=== PATIENT | male | born 1955 | race Caucasian/White ===

== ENCOUNTER 2017-05-13 08:48 | Outpatient (CLI) | payer BC ==
[~2017-05-13] VITALS: Ht 180.3 cm; Wt 74.4 kg
[~2017-05-13 08:48] MED LIST: /THIA10TA OR; ALBU17IN INH; ALLO100T OR; ALLO100T PO; Advair Diskus INH; Albuterol Inhaler INH; BREO1INH INH; CIPR25SS OR; COLC0.6T OR; FLAG500T OR; FOLI1TAB OR; INCR1INH IN; LEVO50TA5 PO; LIPI10TA PO; LISI10TA2 PO; LISI10TA4 OR; MULTIVIT; NS 1,000 ML IV ONE; VITA500C OR; Vitamin D PO
[2017-05-13] MEDS ORDERED: LIDOCAINE 2% INJ 100 MG/5 ML SDV (FOR ANES.) As Ordered ONE (09:53)
[2017-05-13] MEDS ORDERED: PROPOFOL 200 MG/20 ML VIAL As Ordered ONE (09:53)
--- NOTE | 2017-05-13 10:11 | ROOR ---
Patient Name: Geronimo Chaves Procedure Date: 05/13/2017 9:44 AM Date of : 1955 Age: 62 Room: [facility] Gender: Male Note Status: Finalized Procedure: Colonoscopy Indications: High risk colon cancer surveillance: Personal history of colonic polyps. (Incidental: Hx Microscopic colitis) Providers: Jordy GUTIERREZ MD Referring MD: JANETH DOS SANTOS MD Requesting Provider: Medicines: Monitored Anesthesia Care Complications: No immediate complications. Procedure: Pre-Anesthesia Assessment: - The heart rate, respiratory rate, oxygen saturations, blood pressure, adequacy of pulmonary ventilation, and response to care were monitored throughout the procedure. The Colonoscope was introduced through the anus and advanced to the cecum, identified by appendiceal orifice and ileocecal valve. The colonoscopy was performed without difficulty. The patient tolerated the procedure well. The quality of the bowel preparation was good. Findings: The perianal and digital rectal examinations were normal. Three sessile polyps were found in the hepatic flexure and ascending colon. The polyps were 3 to 6 mm in size. These polyps were removed with a cold snare. Resection and retrieval were complete. Biopsies for histology were taken with a cold forceps for evaluation of microscopic colitis. Internal hemorrhoids were found during retroflexion. The hemorrhoids were medium-sized. Impression: - Three 3 to 6 mm polyps at the hepatic flexure and in the ascending colon, removed with a cold snare. Resected and retrieved. - Internal hemorrhoids. - Biopsies were taken with a cold forceps for evaluation of microscopic colitis. - The examination was otherwise normal. Recommendation: - Repeat colonoscopy in 3 years for surveillance. Jordy Gutierrez MD Jordy GUTIERREZ MD 05/13/2017 10:11:11 AM This report has been signed electronically. Number of Addenda: 0 Note Initiated On: 05/13/2017 9:44 AM Estimated Blood Loss: Estimated blood loss: none.
[2017-05-13 10:27] VITALS: BP 120/66
[2017-08-09] MEDS ORDERED: TYLE500T78 PO (08:23)
== END 2017-05-13 10:30 ==
LOC: M OPP 08:48
PROVIDERS: ATTEND Internal Medicine Gastroenterology
DX: Z12.11 Encounter for screening for malignant neoplasm of colon (principal); D12.3 Benign neoplasm of transverse colon; D12.2 Benign neoplasm of ascending colon; K64.8 Other hemorrhoids; K52.832 Lymphocytic colitis; Z86.010 Personal history of colon polyps; Z87.19 Personal history of other diseases of the digestive system; Z79.899 Other long term (current) drug therapy; I10 Essential (primary) hypertension; E03.9 Hypothyroidism, unspecified; J44.9 Chronic obstructive pulmonary disease, unspecified; F17.210 Nicotine dependence, cigarettes, uncomplicated

== ENCOUNTER 2017-06-19 08:01 | Emergency (ER) | payer BC ==
[~2017-06-19] VITALS: Ht 180.3 cm; Wt 73.6 kg
[~2017-06-19 08:01] MED LIST changes: -NS 1,000 ML IV ONE
[2017-06-19] MEDS ORDERED: VITA500T PO (08:11)
[2017-06-19] MEDS ORDERED: LEVA1TAB2 PO (08:11)
[2017-06-19] MEDS ORDERED: INCR1INH IN (08:11)
[2017-06-19] MEDS ORDERED: IBUP-1022 PO (09:18)
--- NOTE | 2017-06-19 09:28 | REP ---
ULTRASOUND INGUINAL CANALS: Real-time sonographic evaluation of inguinal canals performed at rest and with Valsalva maneuver. There is no evidence of inguinal hernia bilaterally. No significant adenopathy is seen sonographically. No fluid collections are seen. IMPRESSION: No evidence of inguinal hernia bilaterally. Signed by Brennon Spivey MD 06/19/2017 04:39 P
[2017-06-19 09:36] VITALS: BP 149/81
[2017-08-09] MEDS ORDERED: TYLE500T78 PO (08:23)
== END 2017-06-19 09:38 | disposition home or self-care (01) ==
LOC: M ED 08:01
DX: K41.90 Unilateral femoral hernia, without obstruction or gangrene, not specified as recurrent (principal); I10 Essential (primary) hypertension; E03.9 Hypothyroidism, unspecified; J45.909 Unspecified asthma, uncomplicated; Z79.899 Other long term (current) drug therapy; Z79.51 Long term (current) use of inhaled steroids

== ENCOUNTER → 2017-08-13 | Outpatient (CLI) | payer BC ==
[~2017-08-13] MED LIST changes: +IBUP-1022 PO; +LEVA1TAB2 PO; +TYLE500T78 PO; +VITA500T PO
[2017-08-13 06:47] LABS: MEAN CORPUSCULAR HEMOGLOBIN 32.8 pg (27.0-33.0); MEAN CORPUSCULAR VOLUME 96.7 fl (80.0-96.0); RED CELL DISTRIBUTION WIDTH 11.9 % (11.5-14.5); WHITE BLOOD COUNT 8.9 10^3/uL (4.0-10.0)
[2017-08-13 07:11] LABS: ALBUMIN 4.1 GM/DL (3.2-5.2); ALBUMIN/GLOBULIN RATIO 1.17 (1.00-1.93); ALKALINE PHOSPHATASE 91 U/L (45-117); ALT/SGPT 23 U/L (12-78); ANION GAP 4 MEQ/L (8-16); AST/SGOT 18 U/L (15-37); BILIRUBIN,TOTAL 0.9 MG/DL (0.2-1.0); BLOOD UREA NITROGEN 8 MG/DL (7-18); CALCIUM LEVEL 9.3 MG/DL (8.8-10.2); CARBON DIOXIDE LEVEL 33 MEQ/L (21-32); CHLORIDE LEVEL 101 MEQ/L (98-107); CREATININE FOR GFR 0.79 MG/DL (0.70-1.30); GLOMERULAR FILTRATION RATE > 60.0 (>49); GLUCOSE, FASTING 99 MG/DL (80-110); POTASSIUM SERUM 4.6 MEQ/L (3.5-5.1); SODIUM LEVEL 138 MEQ/L (136-145); TOTAL PROTEIN 7.6 GM/DL (6.4-8.2)
--- NOTE | 2017-08-14 16:06 | ECGEPIP ---
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
== END ==
LOC: M LAB 06:08
PROVIDERS: ATTEND Internal Medicine
DX: Z01.810 Encounter for preprocedural cardiovascular examination (principal); I10 Essential (primary) hypertension; J44.9 Chronic obstructive pulmonary disease, unspecified

== ENCOUNTER 2017-08-16 11:27 | Day surgery (SDC) | payer BC ==
[~2017-08-16] VITALS: Ht 177.8 cm; Wt 72.1 kg
[2017-08-16] MEDS ORDERED: LR 1,000 ML IV ONE (11:45)
[2017-08-16] MEDS ORDERED: BUPIVACAINE/EPIN 0.25% 30 ML VIAL As Ordered ONE (11:57)
[2017-08-16] MEDS ORDERED: ONDANSETRON 4MG/2ML VIAL (J2405) As Ordered ONE (13:12)
[2017-08-16] MEDS ORDERED: ROCURONIUM BROMIDE 50 MG/5 ML VIAL/SYRINGE As Ordered ONE (13:12)
[2017-08-16] MEDS ORDERED: KETOROLAC 60 MG/2 ML VIAL (J1885) As Ordered ONE (13:12)
[2017-08-16] MEDS ORDERED: MIDAZOLAM INJ 2 MG/2 ML VIAL (J2250) As Ordered ONE (13:12)
[2017-08-16] MEDS ORDERED: dexameTHASONE 4 MG/ML 1ML VIAL (J1100) As Ordered ONE (13:12)
[2017-08-16] MEDS ORDERED: PROPOFOL 200 MG/20 ML VIAL As Ordered ONE ×2 (13:12→14:08)
[2017-08-16] MEDS ORDERED: fentaNYL 250 MCG/5 ML INJECTION (J3010) As Ordered ONE (13:12)
[2017-08-16] MEDS ORDERED: NEOSTIGMINE 10 MG/10 ML VIAL (J2710) As Ordered ONE (13:12)
[2017-08-16] MEDS ORDERED: LIDOCAINE 2% INJ 100 MG/5 ML SDV (FOR ANES.) As Ordered ONE (13:12)
[2017-08-16] MEDS ORDERED: GLYCOPYRROLATE INJ 0.2 MG/ML 2 ML VIAL As Ordered ONE (13:12)
[2017-08-16] MEDS ORDERED: fentaNYL 100 MCG/2 ML INJECTION (J3010) As Ordered ONE (13:17)
[2017-08-16] MEDS ORDERED: LABETALOL HCL 100 MG/20 ML VIAL As Ordered ONE (13:38)
[2017-08-16] MEDS ORDERED: PERCOCET 5MG/325MG TAB PO PRN (14:45)
[2017-08-16] MEDS ORDERED: LR 1,000 ML IV SCH (14:45)
[2017-08-16] MEDS ORDERED: ONDANSETRON 4MG/2ML VIAL (J2405) IV PRN (14:45)
[2017-08-16] MEDS ORDERED: NORCO, ANEXSIA 5/325MG TABLET (HYDROcodone/ACETAMINOPHEN) PO PRN (14:45)
[2017-08-16] MEDS ORDERED: METOCLOPRAMIDE INJ 10MG/2ML VIAL (J2765) IV PRN (14:45)
[2017-08-16] MEDS: fentaNYL 100 MCG/2 ML INJECTION (J3010) IV PRN ×2 (14:49→14:55)
[2017-08-16 16:30] VITALS: BP 151/81
--- NOTE | 2017-08-16 18:58 | RO ---
DATE OF PROCEDURE: 08/16/2017 PREOPERATIVE DIAGNOSIS: Right inguinal hernia with incarcerated umbilical and possible bilateral inguinal. POSTOPERATIVE DIAGNOSIS: Right inguinal and incarcerated umbilical. PROCEDURE: Robotic-assisted right inguinal hernia repair with incarcerated open umbilical hernia repair. SURGEON: Brennon Devlin DO [employer] SORTER: ABDIAS Zuniga ANESTHESIA: General. ESTIMATED BLOOD LOSS: 5 mL. COMPLICATIONS: None. INDICATION FOR PROCEDURE: Patient is a 62-year-old male who presents with a large lump in the right groin and some periumbilical pain. He was found to have a large right inguinal hernia on physical exam as well as an incarcerated umbilical hernia. Recommendation was to proceed with robotic right, possible bilateral with open incarcerated hernia repair. Risks and benefit of the procedure not limited to but including bleeding, infection, hernia formation, hernia recurrence, damage to surrounding structures, need for further surgery were discussed in detail with the patient. Informed consent was obtained and procedure was planned. PROCEDURE: The patient was brought back to operating room 7. After sufficient sedation the abdomen was sterilely prepped and draped. Next, a time out was done to confirm proper patient and proper procedure. Following that, a 5 mm incision was made supraumbilically horizontally. A Veress needle was then used to gain access to the abdomen. Once abdomen was entered, a 5 mm OptiView port was used to insert the camera. 8 mm ports were then placed right and left midabdomen. An 8 mm robotic camera port was then replaced at the umbilical port site. There was no visible hernia on the left side on inspection intraperitoneally, so dissection was started on the right side. The cecum was carefully dissected free from the right peritoneal wall. After doing so the peritoneum was incised on the right side revealing the preperitoneal space. This was all dissected free posteriorly, medially and laterally to create a space for the mesh. Once this was completed, a cord lipoma was excised. The peritoneum was carefully dissected free from all of the cord structures, inferiorly and laterally. Once all this was completed, a Bard 3DMax large mesh was placed in the right groin and sutured to the pubic symphysis using #0 Vicryl suture. The peritoneum was then closed using a running V-Loc suture. Once this was completed, the abdomen was desufflated, ports were removed. Electrocautery was used to extend the incision at the umbilicus to about 3 cm. The incarcerated fat was carefully dissected free circumferentially and the whole hernia sac was excised. Once this was completed, the defect was closed with two interrupted figure-of-8 #0 Vicryl sutures. The skin was then reapproximated using #4-0 Vicryl subcuticular sutures. The abdomen was cleaned and dried. Steri-Strips, 4x4 and tape were applied thus ending procedure.
== END 2017-08-16 16:57 | disposition home or self-care (01) ==
LOC: M SDC 11:27
PROVIDERS: ATTEND Surgery
DX: K42.0 Umbilical hernia with obstruction, without gangrene (principal); K40.90 Unilateral inguinal hernia, without obstruction or gangrene, not specified as recurrent; E03.9 Hypothyroidism, unspecified; I10 Essential (primary) hypertension; J44.9 Chronic obstructive pulmonary disease, unspecified; K52.9 Noninfective gastroenteritis and colitis, unspecified; E78.5 Hyperlipidemia, unspecified; M12.9 Arthropathy, unspecified; J45.909 Unspecified asthma, uncomplicated; Z79.899 Other long term (current) drug therapy; Z72.0 Tobacco use
CPT/HCPCS: 49587; 49650; 88302; C1781; J0690; J1100; J1885; J2250; J2405; J2710; J3010

== ENCOUNTER 2018-01-20 06:31 | Day surgery (SDC) | payer BC ==
[~2018-01-20 06:31] MED LIST changes: -/THIA10TA OR; +ACETAMINOPHEN 325 MG TAB PO; -ALBU17IN INH; -ALLO100T OR; -ALLO100T PO; -Advair Diskus INH; -Albuterol Inhaler INH; -BREO1INH INH; -CIPR25SS OR; -COLC0.6T OR; -FLAG500T OR; -FOLI1TAB OR; -IBUP-1022 PO; -INCR1INH IN; -LEVA1TAB2 PO; -LEVO50TA5 PO; -LIPI10TA PO; -LISI10TA2 PO; -LISI10TA4 OR; -MULTIVIT; +SLF 3 ML SYR IV; -TYLE500T78 PO; -VITA500C OR; -VITA500T PO; -Vitamin D PO
[2018-01-20] MEDS ORDERED: PHENYLEPHRINE HCL 10 % OPHTH. SOL 5ML OD (07:00)
[2018-01-20] MEDS ORDERED: PROPARACAINE 0.5% OPHTH SOL 15ML OD (07:01)
[2018-01-20] MEDS: LIDOCAINE 3.5 % 1ML OPHTH TOPICAL GEL OU (07:10)
[2018-01-20] MEDS: TROPICAMIDE 1% OPHTH SOLN 2ML OD (07:12)
[2018-01-20] MEDS: CYCLOPENTOLATE 2% OPHTH SOLN 2ML BTL OD (07:12)
[2018-01-20] MEDS: OFLOXACIN 0.3 % (OCUFLOX) OPTH SOL 5ML OD (07:12)
[2018-01-20] MEDS: PHENYLEPHRINE 2.5% OPHTH SOL 2ML OD (07:17)
[2018-01-20] MEDS ORDERED: fentaNYL 100 MCG/2 ML INJECTION (J3010) As Ordered (08:17)
[2018-01-20] MEDS ORDERED: MIDAZOLAM INJ 2 MG/2 ML VIAL (J2250) As Ordered (08:17)
[2018-01-20] MEDS: TRIAMCINOLONE PRES FR 40 MG/ML 1ML(TRIESENCE)(OR EYE ONLY)(J3300 PER 1MG) As Ordered (08:24)
[2018-01-20] MEDS: BSS with VANC/TOB/EPI for EYE CASES IR (08:24)
[2018-01-20] MEDS: HEALON DUET (HEALON 10MG/ML 0.55ML & HEALON ENDOCOAT 30MG/ML 0.85ML) As Ordered (08:24)
[2018-01-20] MEDS: MOXIFLOXACIN IN BSS 0.25MG/0.25ML INTRACAMERAL INJ (OR EYE ONLY)(J2280) As Ordered (08:24)
[2018-01-20] MEDS: POVIDONE-IODINE 5% OPHTH PREP SOL 30ML As Ordered (08:24)
[2018-01-20] MEDS: LIDOCAINE 1% SDV 5 ML VIAL As Ordered (08:24)
[2018-01-20] MEDS ORDERED: TRIMETHOBENZAMIDE 300 MG CAP PO (09:00)
[2018-01-20] MEDS ORDERED: KETOROLAC 0.5% OPHTH SOLN OD (09:00)
[2018-01-20] MEDS: AcetaZOLAMIDE 500 MG ER CAP PO (09:00)
== END 2018-01-20 09:15 | disposition home or self-care (01) ==
LOC: M SDC 06:31
DX: H25.9 Unspecified age-related cataract (principal); I10 Essential (primary) hypertension; E78.5 Hyperlipidemia, unspecified; E03.9 Hypothyroidism, unspecified; J44.9 Chronic obstructive pulmonary disease, unspecified; F17.210 Nicotine dependence, cigarettes, uncomplicated; Z79.899 Other long term (current) drug therapy
CPT/HCPCS: 66984

== ENCOUNTER 2018-02-12 10:13 | Day surgery (SDC) | payer BC ==
[~2018-02-12 10:13] MED LIST changes: +PHENYLEPHRINE HCL 10 % OPHTH. SOL 5ML OS; -SLF 3 ML SYR IV
[2018-02-12] MEDS: TROPICAMIDE 1% OPHTH SOLN 2ML OS (12:42)
[2018-02-12] MEDS: CYCLOPENTOLATE 2% OPHTH SOLN 2ML BTL OS (12:42)
[2018-02-12] MEDS: PHENYLEPHRINE 2.5% OPHTH SOL 2ML OS (12:42)
[2018-02-12] MEDS: LIDOCAINE 3.5 % 1ML OPHTH TOPICAL GEL OU (12:42)
[2018-02-12] MEDS: OFLOXACIN 0.3 % (OCUFLOX) OPTH SOL 5ML OS (12:42)
[2018-02-12] MEDS ORDERED: MIDAZOLAM INJ 2 MG/2 ML VIAL (J2250) As Ordered (13:23)
[2018-02-12] MEDS ORDERED: fentaNYL 100 MCG/2 ML INJECTION (J3010) As Ordered (13:23)
[2018-02-12] MEDS ORDERED: POVIDONE-IODINE 5% OPHTH PREP SOL 30ML As Ordered (13:39)
[2018-02-12] MEDS: POVIDONE-IODINE 5% OPHTH PREP SOL 30ML As Ordered (13:49)
[2018-02-12] MEDS: BSS with VANC/TOB/EPI for EYE CASES IR (13:55)
[2018-02-12] MEDS: MOXIFLOXACIN IN BSS 0.25MG/0.25ML INTRACAMERAL INJ (OR EYE ONLY)(J2280) As Ordered (13:55)
[2018-02-12] MEDS: LIDOCAINE 2% W/EPIN INJ 20ML **PRES FREE As Ordered (13:55)
[2018-02-12] MEDS: TRIAMCINOLONE PRES FR 40 MG/ML 1ML(TRIESENCE)(OR EYE ONLY)(J3300 PER 1MG) As Ordered (13:55)
[2018-02-12] MEDS: LIDOCAINE 1% SDV 5 ML VIAL As Ordered (13:55)
[2018-02-12] MEDS: HEALON DUET (HEALON 10MG/ML 0.55ML & HEALON ENDOCOAT 30MG/ML 0.85ML) As Ordered (13:55)
[2018-02-12] MEDS ORDERED: AcetaZOLAMIDE 500 MG ER CAP As Ordered (14:10)
[2018-02-12] MEDS: AcetaZOLAMIDE 500 MG ER CAP PO (14:18)
[2018-02-12] MEDS ORDERED: TRIMETHOBENZAMIDE 300 MG CAP PO (14:30)
== END 2018-02-12 14:30 | disposition home or self-care (01) ==
LOC: M SDC 10:13
DX: H26.9 Unspecified cataract (principal); I10 Essential (primary) hypertension; E78.5 Hyperlipidemia, unspecified; K52.9 Noninfective gastroenteritis and colitis, unspecified; E03.9 Hypothyroidism, unspecified; J44.9 Chronic obstructive pulmonary disease, unspecified; R91.8 Other nonspecific abnormal finding of lung field; R06.83 Snoring; M10.9 Gout, unspecified; Z79.899 Other long term (current) drug therapy; Z72.0 Tobacco use
CPT/HCPCS: 66984

== ENCOUNTER 2018-05-31 08:56 | Emergency (ER) | payer BC ==
[2018-05-31 09:25] LABS: BASO # 0.1 10^3/uL (0.0-0.2); BASO % 0.9 % (0.0-1.0); EOS # 0.1 10^3/uL (0.0-0.50); EOS % 1.6 % (0.0-3.0); HEMATOCRIT 43.6 % (42.0-52.0); HEMOGLOBIN 15.2 g/dl (13.5-17.5); IMMATURE GRANULOCYTE % 0.3 % (0-3.0); LYMPH # 0.8 10^3/uL (1.5-4.5); LYMPH % 11.9 % (24.0-44.0); MEAN CORPUSCULAR HEMOGLOBIN 33.7 pg (27.0-33.0); MEAN CORPUSCULAR HGB CONC 34.9 g/dl (32.0-36.5); MEAN CORPUSCULAR VOLUME 96.7 fl (80.0-96.0); MONO # 0.7 10^3/uL (0.0-0.8); MONO % 9.7 % (0.0-5.0); NEUTROPHILS # 5.3 10^3/uL (1.8-7.7); NEUTROPHILS % 75.6 % (36.0-66.0); PLATELET COUNT, AUTOMATED 219 10^3/uL (150-450); RED BLOOD COUNT 4.51 10^6/uL (4.30-6.10); RED CELL DISTRIBUTION WIDTH 12.2 % (11.5-14.5)
[2018-05-31] MEDS: ASPIRIN 81 MG CHEW TABLET PO (09:27)
[2018-05-31] MEDS: NITROGLYCERIN 0.4 MG SUBL TABLET SL ×3 (09:29→09:51)
[2018-05-31 09:44] LABS: INR 1.01; PROTHROMBIN TIME 13.4 SECONDS (12.1-14.4)
[2018-05-31 09:49] LABS: ANION GAP 6 MEQ/L (8-16); BLOOD UREA NITROGEN 10 MG/DL (7-18); CALCIUM LEVEL 9.3 MG/DL (8.8-10.2); CARBON DIOXIDE LEVEL 31 MEQ/L (21-32); CHLORIDE LEVEL 102 MEQ/L (98-107); CK-MB VALUE MASS 1.7 NG/ML (<3.6); CPK CREATINE PHOSPHOKINASE 66 U/L (39-308); CREATININE FOR GFR 0.84 MG/DL (0.70-1.30); GLOMERULAR FILTRATION RATE > 60.0 (>49); GLUCOSE, FASTING 108 MG/DL (70-100); MB/CK RELATIVE INDEX 2.57 (< OR =4); POTASSIUM SERUM 3.9 MEQ/L (3.5-5.1); SODIUM LEVEL 139 MEQ/L (136-145); TROPONIN I < 0.02 NG/ML (< 0.10)
[2018-05-31] MEDS ORDERED: ISOVUE-370 76% 100ML VIAL (Q9967) As Ordered (10:00)
[2018-05-31] MEDS: HEPARIN DRIP 25,000 UNITS in APPROPRIATE DILUENT 1 EA IV (12:08)
[2018-05-31] MEDS: HEPARIN SOD (PORCINE) 5000 UNITS/ML VIAL IV (12:08)
[2018-05-31 12:30] LABS: CK-MB VALUE MASS 1.4 NG/ML (<3.6); CPK CREATINE PHOSPHOKINASE 62 U/L (39-308); MB/CK RELATIVE INDEX 2.25 (< OR =4); TROPONIN I < 0.02 NG/ML (< 0.10)
== END 2018-05-31 14:13 | disposition short-term general hospital (02) ==
LOC: M ED 08:56
DX: I20.0 Unstable angina (principal); R06.02 Shortness of breath; I10 Essential (primary) hypertension; J44.9 Chronic obstructive pulmonary disease, unspecified; F17.200 Nicotine dependence, unspecified, uncomplicated; Z79.899 Other long term (current) drug therapy
CPT/HCPCS: Q9967

== ENCOUNTER → 2018-10-16 | Outpatient (REF) | payer BC ==
[~2018-10-16] MED LIST changes: +/THIA10TA OR; -ACETAMINOPHEN 325 MG TAB PO; +ALBU17IN INH; +ALLO100T OR; +ALLO100T PO; +Advair Diskus INH; +Albuterol Inhaler INH; +BREO1INH INH; +CIPR25SS OR; +COLC0.6T OR; +FLAG500T OR; +FOLI1TAB OR; +IBUP-1022 PO; +INCR1INH IN; +LEVA1TAB2 PO; +LEVO50TA5 PO; +LIPI10TA PO; +LISI10TA2 PO; +LISI10TA4 OR; +MULTIVIT; -PHENYLEPHRINE HCL 10 % OPHTH. SOL 5ML OS; +TYLE500T78 PO; +VITA100067 PO; +VITA500C OR; +VITA500T PO; +Vitamin D PO
== END ==
LOC: M LAB REF 15:27
PROVIDERS: ATTEND Internal Medicine Gastroenterology
DX: K52.839 Microscopic colitis, unspecified (principal)

== ENCOUNTER → 2019-05-29 | Outpatient (CLI) | payer BC ==
--- NOTE | 2019-05-29 11:50 | REP ---
Clinical: Bilateral groin pain. Technique: Real time gomez scale ultrasound examination using curved array transducer. Findings: Directed ultrasound examination of the bilateral inguinal canals demonstrates small/moderate bilateral fat containing inguinal hernias. Right-sided defect measures up to 22 mm on Valsalva while the left-sided defect measures up to 18 mm. Impression: Bilateral fat containing inguinal hernias. Electronically Signed by Munir Maloney MD 05/29/2019 11:41 A
== END ==
LOC: M RAD 10:28
PROVIDERS: ATTEND Surgery
DX: K40.21 Bilateral inguinal hernia, without obstruction or gangrene, recurrent (principal)

== ENCOUNTER 2019-06-19 09:45 | Day surgery (SDC) | payer BC ==
[~2019-06-19] VITALS: Ht 180.3 cm; Wt 68.9 kg
[~2019-06-19 09:45] MED LIST changes: +ACET-683 PO; +BUDE3CAP PO; +LEVO75TA4 PO; +LISI10TA15 PO; -LISI10TA2 PO; +LR 1,000 ML IV ONE; +PROAAER10 INH
[2019-06-19 10:55] LABS: HEMATOCRIT 43.1 % (42.0-52.0); HEMOGLOBIN 14.3 g/dl (13.5-17.5); MEAN CORPUSCULAR HEMOGLOBIN 32.7 pg (27.0-33.0); MEAN CORPUSCULAR HGB CONC 33.2 g/dl (32.0-36.5); MEAN CORPUSCULAR VOLUME 98.6 fl (80.0-96.0); PLATELET COUNT, AUTOMATED 360 10^3/uL (150-450); RED BLOOD COUNT 4.37 10^6/uL (4.30-6.10); WHITE BLOOD COUNT 9.4 10^3/uL (4.0-10.0)
[2019-06-19] MEDS ORDERED: SUGAMMADEX SODIUM 500 MG/5 ML VIAL (BRIDION) As Ordered ONE (11:13)
[2019-06-19 11:16] LABS: BLOOD UREA NITROGEN 8 MG/DL (7-18); CALCIUM LEVEL 9.3 MG/DL (8.8-10.2); CARBON DIOXIDE LEVEL 33 MEQ/L (21-32); CHLORIDE LEVEL 102 MEQ/L (98-107); CREATININE FOR GFR 0.68 MG/DL (0.70-1.30); GLOMERULAR FILTRATION RATE > 60.0 (>49); GLUCOSE, FASTING 91 MG/DL (70-100); POTASSIUM SERUM 4.3 MEQ/L (3.5-5.1); SODIUM LEVEL 139 MEQ/L (136-145)
[2019-06-19] MEDS ORDERED: PROPOFOL 200 MG/20 ML VIAL As Ordered ONE (11:17)
[2019-06-19] MEDS ORDERED: LIDOCAINE 2% INJ 100 MG/5 ML SDV (FOR ANES.) As Ordered ONE (11:17)
[2019-06-19] MEDS ORDERED: ROCURONIUM BROMIDE 50 MG/5 ML VIAL As Ordered ONE ×2 (11:17→13:29)
[2019-06-19] MEDS ORDERED: dexameTHASONE 4 MG/ML 1ML VIAL (J1100) As Ordered ONE (11:18)
[2019-06-19] MEDS ORDERED: MIDAZOLAM INJ 2 MG/2 ML VIAL (J2250) As Ordered ONE (11:18)
[2019-06-19] MEDS ORDERED: fentaNYL 100 MCG/2 ML INJECTION (J3010) As Ordered ONE (11:18)
[2019-06-19] MEDS ORDERED: ONDANSETRON 4MG/2ML VIAL (J2405) As Ordered ONE (11:18)
[2019-06-19] MEDS ORDERED: BUPIVACAINE/EPIN 0.25% 30 ML VIAL As Ordered ONE (12:13)
[2019-06-19] MEDS ORDERED: PHENYLephrine HCL 500 MCG/5 ML (100MCG/ML) SYRINGE (J2370) As Ordered ONE (13:00)
[2019-06-19] MEDS ORDERED: HYDROmorphone HCL 2 MG/ML 1ML VIAL (J1170) As Ordered ONE (13:01)
[2019-06-19] MEDS ORDERED: ACETAMINOPHEN 1000MG 100ML IV BTL (OFIRMEV) (J0131 PER 10MG) As Ordered ONE (13:50)
[2019-06-19] MEDS ORDERED: KETOROLAC 60 MG/2 ML VIAL (J1885) As Ordered ONE (13:51)
[2019-06-19] MEDS ORDERED: ALBUTEROL SULFATE 2.5 MG/0.5 ML INH NEB SOLN As Ordered ONE (14:31)
[2019-06-19] MEDS ORDERED: ONDANSETRON 4MG/2ML VIAL (J2405) IV PRN (14:45)
[2019-06-19] MEDS ORDERED: LR 1,000 ML IV SCH (14:45)
[2019-06-19] MEDS ORDERED: oxyCODONE 5MG TAB PO PRN (14:45)
[2019-06-19] MEDS ORDERED: ALBUTEROL SULFATE 2.5 MG/0.5 ML INH NEB SOLN INH ONE (14:45)
[2019-06-19] MEDS ORDERED: fentaNYL 100 MCG/2 ML INJECTION (J3010) IV PRN (14:45)
[2019-06-19] MEDS ORDERED: MORPHINE 10 MG/ML 1ML VIAL (J2270) IV PRN (14:45)
[2019-06-19] MEDS ORDERED: NORCO, ANEXSIA 5/325MG TABLET (HYDROcodone/ACETAMINOPHEN) PO PRN (14:45)
[2019-06-19 16:30] VITALS: BP 152/71
--- NOTE | 2019-06-22 19:33 | RO ---
DATE OF PROCEDURE: 06/19/2019 PREOPERATIVE DIAGNOSIS: Recurrent right inguinal hernia and left inguinal hernia. POSTOPERATIVE DIAGNOSIS: Recurrent right inguinal hernia and left inguinal hernia. PROCEDURE: Robotic repair of recurrent right inguinal and left inguinal hernia repair. SURGEON: Dr. Brennon Devlin ROLL FINISHER: None. ANESTHESIA: General. ESTIMATED BLOOD LOSS: 5 mL. COMPLICATIONS: None. INDICATIONS FOR PROCEDURE: The patient is a 64-year-old male who presents with left groin pain, had an ultrasound done which confirmed there was fat containing inguinal hernias on both the left and right sides. I explained to him that we had already repaired the right side and that this was most likely a cord lipoma that he has developed, unlikely a recurrence of the hernia. However, since he has one on the left, we can proceed with repair of both sides. Risks and benefits of the procedure not limited to but including bleeding, infection, hernia formation, hernia recurrence, damage to surrounding structures and need for further surgery were discussed in detail with the patient. Informed consent was obtained and procedure was planned. DESCRIPTION OF PROCEDURE: The patient was brought back to operating room seven, after sufficient sedation, the abdomen was sterilely prepped and draped. Next, a time-out was done to confirm proper patient, proper procedure. Following that, a stab incision was made in the left lower quadrant, Veress needle was inserted and the abdomen was insufflated to 15 mmHg. Next, an 8 mm supraumbilical midline incision was made and an 8 mm robotic port site was placed with Optiview. Upon entering the abdomen, the Veress needle was examined. There were no signs of any injury. Veress needle was removed. Two more 8 mm robotic ports were placed in the left and right midabdomen. Next, started the right side. There were some small bowel adhesions to the previous mesh that was placed. These were carefully dissected free. Next, the previous mesh was pulled medial and inferiorly and created a dissection plane posterior to it, starting from lateral to medial. I was able to get all the way down towards the cord structures. Once I identified the cord structures, I mobilized those medially and went down through the inguinal canal, identifying a few large cord lipomas. These were all dissected free and removed out of the inguinal canal and into the abdomen and then taken out of the abdomen with a grasper. Once this was all completed, the #2-0 V-Loc was used to reapproximate the peritoneum to the old mesh, holding that back in place. Once that was completed, on the left side a curved incision was made superior and lateral to the inguinal canal. The cord structures were dissected free from the peritoneum and then the cord structures were placed under gentle traction and a large cord lipoma was also found on the left side. There was an indirect and a direct lipoma, but all of this was dissected free and removed. Then, a Bard 3DMax medium mesh was placed into the left preperitoneal space, sutured to the pubic symphysis with a #2-0 Vicryl suture. The peritoneum was then closed with a running #2-0 V-Loc. Once that was completed, the needles were all removed. The rest of the cord lipomas were taken out of the abdomen using a grasper. The abdomen was then desufflated. Skin incisions were closed with #4-0 Vicryl subcuticular sutures. The abdomen was cleaned and dried. Steri-Strips, 4x4 and tape were applied thus ending procedure.
== END 2019-06-19 16:38 | disposition home or self-care (01) ==
LOC: M SDC 09:45
PROVIDERS: ATTEND Surgery
DX: K40.01 Bilateral inguinal hernia, with obstruction, without gangrene, recurrent (principal); I10 Essential (primary) hypertension; E78.5 Hyperlipidemia, unspecified; M10.9 Gout, unspecified; E03.9 Hypothyroidism, unspecified; J44.9 Chronic obstructive pulmonary disease, unspecified; G47.30 Sleep apnea, unspecified; Z79.899 Other long term (current) drug therapy; Z79.51 Long term (current) use of inhaled steroids
CPT/HCPCS: 36415; 49650; 80048; 85027; C1781; J0131; J0690; J1100; J1170; J1885; J2250; J2405; J3010

== ENCOUNTER → 2019-07-28 | Outpatient (CLI) | payer BC ==
[~2019-07-28] MED LIST changes: -LR 1,000 ML IV ONE
--- NOTE | 2019-07-28 13:22 | REP ---
BILATERAL INGUINAL ULTRASOUND: Real-time sonographic of the inguinal canals performed following hernia repair bilaterally 06/19/2019. There is no evidence of recurrent hernia bilaterally. In the right inguinal canal there is a small area of simple appearing fluid 7 x 6 x 5 mm. In the left inguinal canal there is an oval heterogeneous area of complex fluid 4.1 x 2.1 x 2.3 cm. This may represent postsurgical hematoma. Electronically Signed by Brennon Spivey MD 07/29/2019 04:16 P
== END ==
LOC: M RAD 09:43
PROVIDERS: ATTEND Nurse Practitioner
DX: Z87.19 Personal history of other diseases of the digestive system (principal)

== ENCOUNTER → 2019-10-19 | Outpatient (CLI) | payer OTHER ==
--- NOTE | 2019-10-19 08:29 | REP ---
Clinical: Bilateral hip pain. Technique: Neutral and frog lateral views of the right and left hip. Findings: Symmetric generalized early age related osteoarthritic degenerative changes are appreciated. Findings include increased sclerosis along the acetabular rim with very subtle spurring forming along the femoral neck and minimal joint space narrowing. Impression: Relatively symmetric early arthritic change. Electronically Signed by Munir Maloney MD 10/19/2019 08:20 A
--- NOTE | 2019-10-19 08:30 | REP ---
Clinical: Back and hip pain. Technique: AP, lateral, bilateral oblique and coned-down views of the lumbosacral spine. Findings: Alignment and lordosis maintained. Mild multilevel degenerative changes include subtle endplate sclerosis with age-related hypertrophic facet changes. Disc spaces appear relatively well maintained. No acute fracture / compression injury or subluxation. Impression: Generalized age-related changes. Electronically Signed by Munir Maloney MD 10/19/2019 08:21 A
== END ==
LOC: M RAD 06:06 → M LAB 06:06
PROVIDERS: ATTEND Surgery
DX: M16.0 Bilateral primary osteoarthritis of hip (principal); M51.36 Other intervertebral disc degeneration, lumbar region

== ENCOUNTER → 2020-02-18 | Outpatient (REF) | payer OTHER ==
[~2020-02-18] MED LIST changes: +VITA-243 PO; -VITA500T PO
== END ==
LOC: M LAB REF 07:30
PROVIDERS: ATTEND Internal Medicine Gastroenterology
DX: K52.839 Microscopic colitis, unspecified (principal)

== ENCOUNTER → 2020-06-15 | Outpatient (CLI) | payer OTHER ==
--- NOTE | 2020-06-24 10:41 | REP ---
LEFT RIB SERIES: FIVE-VIEWS INCLUDING PA CHEST HISTORY: Contusion of the left ribs with left rib pain. COMPARISON: Radiograph 05/31/2018. FINDINGS: PA chest radiograph shows hyperinflated lungs, which are clear. The pleural angles are sharp. Cardiomediastinal silhouette is unremarkable. There is no evidence of pneumothorax or hydrothorax. No mediastinal widening is seen. Pulmonary vasculature is not increased. There is an old healed rib fracture on the right anteriorly. Multiple views of the left rib cage demonstrate subtle cortical deflections in the anterior ends of several ribs, which are unchanged from the 05/31/2018 study and consistent with old healed rib fractures. No definite acute rib fracture is seen. IMPRESSION: No acute rib fracture noted. No active disease seen. MTDD
== END ==
LOC: M WUC 09:59
PROVIDERS: ATTEND Physician Assistant
DX: S20.222A Contusion of left back wall of thorax, initial encounter (principal); X58.XXXA Exposure to other specified factors, initial encounter; Y92.9 Unspecified place or not applicable

== ENCOUNTER → 2020-12-18 | Outpatient (CLI) | payer OTHER | LOC: M LABSMTC 08:46 | PROVIDERS: ATTEND Anesthesiology | DX: Z01.818 Encounter for other preprocedural examination (principal); Z11.52 Encounter for screening for COVID-19 ==

== ENCOUNTER 2020-12-23 09:37 | Day surgery (SDC) | payer OTHER ==
[~2020-12-23] VITALS: Ht 180.3 cm; Wt 68.1 kg
[~2020-12-23 09:37] MED LIST changes: +LIDOCAINE 2% 100MG/5ML SDV (FOR ANES.) As Ordered ONE; +NS 1,000 ML IV ONE; +propofoL 200 MG/20 ML VIAL As Ordered ONE
--- OUTSIDE RECORDS SUMMARY | 2020-12-23 10:12 | CCD | Continuity of Care Document ---
Author Author Geronimo PERES M.D. Organization Unknown Address [address] [place], [place] [address] Phone [phone] Care Team Providers Care Key Account Coordinator Name Role Phone Jordy Joaquin M.D. AUTM [phone] Russell Stevens M.D. AUTM [phone] Aly Hernandez M.D. AUTM [phone] Problems Active Problems Provider Date Gout Nicole Gonzalez D.O. Onset: 05/22/2011 Benign essential hypertension Nicole Gonzalez D.O. Onset: 05/22/2011 Tobacco user Nicole Gonzalez D.O. Onset: 05/22/2011 Hyperlipidemia Ellie Jackson RPA-C Onset: 2012 Chronic obstructive lung disease Ellie Jackson RPA-C Onset: 03/10/2013 Vitamin D deficiency Lizzeth Fischer D., FNP-C Onset: 12/2013 Essential hypertension Lizzeth Fischer D., FNP-Jona Onset: Social History Type Date Description Comments Sex Unknown ETOH Use Consumes 3 beers per day Tobacco Use Start: Unknown Patient is a current smoker, smo kes every day 1 1/2 ppd for over 40 years Recreational Drug Use Never Used Drugs Allergies, Adverse Reactions, Alerts Description No Known Drug Allergies Medications Active Medications SIG Qnty Indications Ordering Provide r Date Prevnar 13 Suspension as directed 1dose Mesfin Peres M.D. 05/13/2020 Levothyroxine Sodium 75mcg Tablets Take 1/2 Tablet By Mouth Once Daily 15tabs Mesfin Peres M.D. 05/22/2019 Atorvastatin Calcium 10mg Tablets take one tablet by mouth every day 30tabs Mesfin Peres M.D . 02/11/2019 Lisinopril-Hydrochlorothiazide 10-12.5mg Tablets Take One Tablet By Mouth Every Day 30tabs I10 Mesfin Espinosa M.D. 08/23/2014 Allopurinol 100mg Tablets Take One Tablet By Mouth Every Day 30tabs Mesfin Peres M.D. 04/06 Vitamin C 500mg Capsules 1 po qd Unknown Medications Administered in Office Medication SIG Qnty Indications Ordering Provider Date Injection (SC)/(Im) Injection Ellie Jackson RPA-C 08/20/2013 Injection (SC)/(Im) Injection Ellie Jackson RPA-C 07/30/2012 Immunizations CPT Code Status Date Vaccine Lot # 75931 Given 09/25/2017 Influenza Virus Vaccine, Quadrivalent, Slit Virus, Im Use 3Y & Up [id number] [id number] Given 07/11/2016 Influenza Virus Vaccine, Quadrivalent, Slit Virus, Im Use 3Y & Up [id number] [id number] Given 08/04/2015 Influenza Virus Vac. Split Virus Individuals 3 Years And Above [id number] Given 08/20/2013 Influenza Virus Vac. Split Virus Individuals 3 Years And Above [id number] Given 07/30/2012 Pneumococcal Immunization [id number] [id number] Given 07/30/2012 Influenza Virus Vac. Split Virus Individuals 3 Years And Above [id number] Vital Signs Date Vital Result Comment 12/02/2020 9:55am BP Systolic 114 mmHg BP Diastolic 82 mmHg Body Temperature 97.6 F Heart Rate 90 /min Respiratory Rate 16 /min Height 71 inches 5'11" Weight 156.00 lb [place] Body Weight 172 lb BMI (Body Mass Index) 21.8 kg/m2 O2 % BldC Oximetry 98 % 07/11/2020 4:19pm BP Systolic 156 mmHg BP Diastolic 82 mmHg Body Temperature 98.1 F Heart Rate 108 /min Respiratory Rate 16 /min Height 71 inches 5'11" Weight 153.00 lb [place] Body Weight 172 lb BMI (Body Mass Index) 21.3 kg/m2 O2 % BldC Oximetry 97 % Results Test Acquired Date Facility Test Result H/L Range Note Laboratory test finding 12/02/2020 [facility] TSH 1.077 ulU/mL 0.60 - 4.8 CMP 12/02/2020 [facility] Glu 91 mg/dL 70 - 110 1 BUN 8 mg/dL 8 - 23 Creat 0.7 mg/dL 0.7 - 1.2 BUN/Creatinine Ratio 11.9 Calc Na 134 mmol/L Low 136 - 145 K 4.0 mmol/L 3.5 - 5.1 CL 96.2 mmol/L Low 98.0 - 107.0 Co2 27.0 mmol/L 22.0 - 29.0 CA 9.8 mg/dL 8.6 - 10.2 TP 6.8 g/dL 6.6 - 8.7 Alb 4.4 g/dL 3.5 - 5.2 A/G Ratio 1.9 Calc Globulin 2.4 Calc Alp 87.7 U/L 40 - 129 Alt (SGPT) 13 U/L 0 - 41 Ast (Sgot) 19 U/L 0 - 40 Tbili 0.72 mg/dL 0.0 - 1.2 Osmolality-Calculated 266.0 Calc Anion Gap 15 mmol/L eGFR 116 # Calc 2 eGFR Non-Afr. Nigerien 100 # Calc 3 Lipid Panel 12/02/2020 [facility] Chol 144 mg/dL 0 - 200 Trig 33 mg/dL Low 35 - 200 HDL 88 mg/dL High 35 - 55 LDL_C 49 Calc Low 75 - 129 Cho/HDL Ratio 1.6 CALC Laboratory test finding 12/02/2020 [facility] Uric Acid 4.9 mg/dL 3.4 - 7.0 1 CHRONIC KIDNEY DISEASE STAGI NG PER NKF: MALE GFR INTERPRETATION: 20-49 YRS: >60 mL/min Normal 50-59 YRS: >56 mL/min Normal 60-69 YRS: >49 mL/min Normal 70-79 YRS: >42 mL/min Normal 80 and above >35 mL/min Normal FEMALE GRF INTERPRETATION: 20-39 YRS: >60 mL/min Normal 40-49 YRS: >58 mL/min Normal 50-59 YRS: >51 mL/min Normal 60-69 YRS: >45 mL/min Normal 70-79 YRS: >39 mL/min Normal 80 and above >32 mL/min NormalCLASSIFICATION CHOLESTEROL FOR ADULTS CHILDREN/ADOLESCENTS* DESIRABLE: <200 MG/DL <170 MG/DL BORDER-LINE HIGH RISK: 200-239 MG/DL 170-199 MG/DL HIGH RISK: >240 MG/DL >200 MG/DL CLASS. FOR PRIMARY LDL CHOL PREVENTION: LDL CHOL-CHILD/ADOLESCENTS* DESIRABLE: <130 MG/DL <110 MG/DL BORDERLINE-HIGH RISK: 130-159 MG/DL 110-129 MG/DL HIGH RISK: >160 MG/DL >130 MG/DL *CHILDREN AND ADOLESCENTS REPRESENTS INDIVIDUALA AGED 2-19 YEARS EXCLUSIVE. 2 CKD-EPI 3 CKD-EPI Procedures Description No Information Available Medical Devices Description No Information Available Encounters Type Date Location Provider Dx Diagnosis Office Visit 12/02/2020 9:30a [facility] Mesfin Peres M. D. I10 Essential (primary) hypertension E78.5 Hyperlipidemia, unspecified J44.9 Chronic obstructive pulmonar y disease, unspecified M10.9 Gout, unspecified E03.9 Hypothyroidism, unspecified Office Visit 07/11/2020 4:00p [facility] Mesfin Peres M. D. F10.29 Alcohol dependence with unspecified alcohol-induced disorder Assessments Date Code Description Provider 12/02/2020 I10 Essential (primary) hypertension Mesfin Peres M.D. 12/02/2020 E78.5 Hyperlipidemia, unspecified [facility] Mesfin hankins M.D. 12/02/2020 J44.9 Chronic obstructive pulmonary di sease, unspecified Mesfin Peres M.D. 12/02/2020 M10.9 Gout, unspecified Luis Peres M.D. 12/02/2020 E03.9 [facility], [facility] 07/11/2020 F10.29 Alcohol dependence with unspecif ied alcohol-induced disorder Mesfin Peres M.D. Plan of Treatment Future Appointment(s):* 06/09/2021 8:30 am - Mesfin Peres M.D. at [facility] Functional Status Description No Information Available Mental Status Description No Information Available Referrals Description No Information Available
--- OUTSIDE RECORDS SUMMARY | 2020-12-23 10:13 | CCD | Continuity of Care Document ---
Author Author Geronimo PERES M.D. Organization Unknown Address [address] [place], [place] [address] Phone [phone] Care Team Providers Care Suction Operator Name Role Phone Jordy Joaquin M.D. AUTM [phone] Russell Stevens M.D. AUTM [phone] Aly Hernandez M.D. AUTM [phone] Problems Active Problems Provider Date Gout Nicole [...] Peres M.D. 05/13/2020 Levothyroxine Sodium 75mcg Tablets take 1/2 tablet by mouth once daily 15tabs Mesfin Peres M.D. 05/22/2019 Atorvastatin Calcium 10mg Tablets take one tablet by mouth every day 30tabs Mesfin Peres M.D . 02/11/2019 Lisinopril-Hydrochlorothiazide 10-12.5mg Tablets take one tablet by mouth every day 30tabs I10 Mesfin Espinosa M.D. 08/23/2014 Allopurinol 100mg Tablets take one tablet by mouth every day 30tabs Mesfin Peres M.D. 04/06 Vitamin C 500mg Capsules 1 po qd Unknown Medications Administered in Office Medication SIG Qnty Indications Ordering Provider Date Injection (SC)/(Im) Injection Ellie Jackson RPA-C 08/20/2013 Injection (SC)/(Im) Injection Ellie Jackson RPA-C 07/30/2012 Immunizations CPT Code Status Date Vaccine Lot # 57488 Given 09/25/2017 Influenza Virus Vaccine, Quadrivalent, Slit Virus, Im Use 3Y & Up [id number] 25046 Given 07/11/2016 Influenza Virus Vaccine, Quadrivalent, Slit Virus, Im Use 3Y & Up [id number] 28757 Given 08/04/2015 Influenza Virus Vac. Split Virus Individuals 3 Years And Above [id number] 24113 Given 08/20/2013 Influenza Virus Vac. Split Virus Individuals 3 Years And Above [id number] 82124 Given 07/30/2012 Pneumococcal Immunization 17 [id number] 98694 Given 07/30/2012 Influenza Virus Vac. Split Virus Individuals 3 Years And Above [id number] Vital Signs Date Vital Result Comment 12/02/2020 9:55am BP Systolic 114 mmHg BP Diastolic 82 mmHg Body Temperature 97.6 F Heart Rate 90 /min Respiratory Rate 16 /min Height 71 inches 5'11" Weight 156.00 lb [place] Body Weight 172 lb BMI (Body Mass Index) 21.8 kg/m2 O2 % BldC Oximetry 98 % 07/11/2020 4:19pm BP Systolic 156 mmHg BP Diastolic 82 mmHg Body Temperature 98.1 F Heart Rate 108 /min Respiratory Rate 16 /min Height 71 inches 5'11" Weight 153.00 lb [place] Body Weight 172 lb BMI (Body Mass Index) 21.3 kg/m2 O2 % BldC Oximetry 97 % Results Test Acquired Date Facility Test Result H/L Range Note Laboratory test finding 12/02/2020 [facility] TSH <pending> CMP 12/02/2020 [facility] Glu 91 mg/dL 70 [...] eGFR 116 # Calc 2 eGFR Non-Afr. [place] 100 # Calc 3 Lipid Panel 12/02/2020 [...] Provider Dx Diagnosis Office Visit 12/02/2020 9:30a [place] [facility] Mesfin Peres M. D. I10 Essential (primary) hypertension E78.5 Hyperlipidemia, unspecified J44.9 Chronic obstructive pulmonar y disease, unspecified M10.9 Gout, unspecified E03.9 Hypothyroidism, unspecified Office Visit 07/11/2020 4:00p [facility] Mesfin Peres M. D. F10.29 Alcohol dependence with unspecified alcohol-induced disorder Assessments Date Code Description Provider 12/02/2020 I10 Essential (primary) hypertension Mesfin Peres M.D. 12/02/2020 E78.5 Hyperlipidemia, unspecified [facility] Mesfin hankins M.D. 12/02/2020 J44.9 Chronic obstructive pulmonary di sease, unspecified Mesfin Peres M.D. 12/02/2020 M10.9 Gout, unspecified Luis Peres M.D. 12/02/2020 E03.9 [facility], [facility] 07/11/2020 F10.29 Alcohol dependence with unspecif ied alcohol-induced disorder Mesfin Peres M.D. Plan of Treatment Future Appointment(s):* 06/09/2021 8:30 am - Mesfin Peres M.D. at [facility] Functional Status Description No Information Available Mental Status Description No Information Available Referrals Description No Information Available
--- OUTSIDE RECORDS SUMMARY | 2020-12-23 10:13 | CCD | Continuity of Care Document ---
Author Author Geronimo PERES M.D. Organization Unknown Address [address] [place], [place] [address] Phone [phone] Care Team Providers [employer] Supervisor Name Role Phone Jordy Joaquin M.D. AUTM [phone] Russell Stevens M.D. AUTM [phone] Aly Hernandez M.D. AUTM [phone] Problems Active Problems Provider Date Gout Nicole Gonzalez D.O. Onset: 05/22/2011 Benign essential hypertension Nicole Gonzalez D.O. Onset: 05/22/2011 Tobacco user Nicole Gonzalez D.O. Onset: 05/22/2011 Hyperlipidemia Ellie Jackson RPA-C Onset: 2012 Chronic obstructive lung disease Ellie Jackosn RPA-C Onset: 03/10/2013 Vitamin D deficiency Lizzeth [...] C 500mg Capsules 1 po qd Unknown Vitamin D 1000Unit Tablets 1 by mouth every day Unknown Budesonide 3mg Caps DR Yo 3 po qd colitis Jordy Joaquin M.D. Medications Administered in Office Medication SIG Qnty Indications Ordering Provider Date Injection (SC)/(Im) Injection Ellie Jackson RPA-C 08/20/2013 Injection (SC)/(Im) Injection Ellie Jcakson RPA-C 07/30/2012 Immunizations CPT Code Status Date Vaccine Lot # [id number] Given 09/25/2017 Influenza Virus Vaccine, Quadrivalent, Slit Virus, Im Use 3Y & Up [id number] Given 07/11/2016 Influenza Virus Vaccine, Quadrivalent, Slit Virus, Im Use 3Y & Up [id number] 80832 Given 08/04/2015 Influenza Virus Vac. Split Virus Individuals 3 Years And Above [id number] [id number] Given 08/20/2013 Influenza Virus Vac. Split Virus Individuals 3 Years And Above [id number] 36191 Given 07/30/2012 Pneumococcal Immunization [id number] Given 07/30/2012 Influenza Virus Vac. Split Virus Individuals 3 Years And Above [id number] Vital Signs Date Vital Result Comment 07/11/2020 4:19pm BP Systolic 156 mmHg BP Diastolic 82 mmHg Body Temperature 98.1 F Heart Rate 108 /min Respiratory Rate 16 /min Height 71 inches 5'11" Weight 153.00 lb [place] Body Weight 172 lb BMI (Body Mass Index) 21.3 kg/m2 O2 % BldC Oximetry 97 % 05/13/2020 9:14am BP Systolic 146 mmHg BP Diastolic 78 mmHg Body Temperature 97.8 F Heart Rate 72 /min Respiratory Rate 16 /min Height 71 inches 5'11" Weight 240.00 lb [place] Body Weight 172 lb BMI (Body Mass Index) 33.5 kg/m2 O2 % BldC Oximetry 97 % Results Description No Information Available Procedures Description No Information Available Medical Devices Description No Information Available Encounters Type Date Location Provider Dx Diagnosis Office Visit 12/02/2020 9:30a [facility] Mesfin Peres M. D. I10 Essential (primary) hypertension E78.5 Hyperlipidemia, unspecified J44.9 Chronic obstructive pulmonar y disease, unspecified M10.9 Gout, unspecified E03.9 Hypothyroidism, unspecified Office Visit 07/11/2020 4:00p [facility] Mesfin Peres M. D. F10.29 Alcohol dependence with unspecified alcohol-induced disorder Assessments Date Code Description Provider 12/02/2020 I10 Essential (primary) hypertension Mesfin Peres M.D. 12/02/2020 E78.5 Hyperlipidemia, unspecified [facility] Mesfin hankins M.D. 12/02/2020 J44.9 Chronic obstructive pulmonary di sease, unspecified Mesfin Peres M.D. 12/02/2020 M10.9 Gout, unspecified Luis Peres M.D. 12/02/2020 E03.9 Hypothyroidism, unspecified [facility] Mesfin hankins M.D. 07/11/2020 F10.29 Alcohol dependence with unspecif ied alcohol-induced disorder Mesfin Peres M.D. Plan of Treatment No Information Available Functional Status Description No Information Available Mental Status Description No Information Available Referrals Description No Information Available
--- OUTSIDE RECORDS SUMMARY | 2020-12-23 10:13 | CCD ---
Author Author [facility] Organization [facility] Address Unknown Phone Unavailable Care Team Providers Care Instructor Modeling Name Role Phone Yusra DOS SANTOS MD Unavailable Unavailable Yusra DOS SANTOS MD Unavailable Unavailable Yusra DOS SANTOS MD Unavailable Unavailable Yusra DOS SANTOS MD Unavailable Unavailable Yusra DOS SANTOS MD Unavailable Unavailable Yusra DOS SANTOS MD Unavailable Unavailable Yusra DOS SANTOS MD Unavailable Unavailable Yusra DOS SANTOS MD Unavailable Unavailable Yusra DOS SANTOS MD Unavailable Unavailable Yusra DOS SANTOS MD Unavailable Unavailable Yusra DOS SANTOS MD Unavailable Unavailable Yusra DOS SANTOS MD Unavailable Unavailable Yusra DOS SANTOS MD Unavailable Unavailable Yusra DOS SANTOS MD Unavailable Unavailable Yusra DOS SANTOS MD Unavailable Unavailable Yusra DOS SANTOS MD Unavailable Unavailable Yusra DOS SANTOS MD Unavailable Unavailable Yusra DOS SANTOS MD Unavailable Unavailable Yusra DOS SANTOS MD Unavailable Unavailable Yusra DOS SANTOS MD Unavailable Unavailable Yusra DOS SANTOS MD Unavailable Unavailable Yusra DOS SANTOS MD Unavailable Unavailable Yusra DOS SANTOS MD Unavailable Unavailable Yusra DOS SANTOS MD Unavailable Unavailable Yusra DOS SANTOS MD Unavailable Unavailable Yusra DOS SANTOS MD Unavailable Unavailable Yusra DOS SANTOS MD Unavailable Unavailable Yusra DOS SANTOS MD Unavailable Unavailable Yusra DOS SANTOS MD Unavailable Unavailable Yusra DOS SANTOS MD Unavailable Unavailable Yusra DOS SANTOS MD Unavailable Unavailable Yusra DOS SANTOS MD Unavailable Unavailable Yusra DOS SANTOS MD Unavailable Unavailable Yusra DOS SANTOS MD Unavailable Unavailable Yusra DOS SANTOS MD Unavailable Unavailable Yusra DOS SANTOS MD Unavailable Unavailable Yusra DOS SANTOS MD Unavailable Unavailable Yusra DOS SANTOS MD Unavailable Unavailable RAYA, H JANETH MD Unavailable Unavailable RAYA, Yusra FOWLER MD Unavailable Unavailable RAYA, Yusra FOWLER MD Unavailable Unavailable RAYA, H JANETH MD Unavailable Unavailable RAYA, H JANETH MD Unavailable Unavailable RAYA, H JANETH MD Unavailable Unavailable RAYA, H JANETH MD Unavailable Unavailable RAYA, H JANETH MD Unavailable Unavailable RAYA, H JANETH MD Unavailable Unavailable RAYA, H JANETH MD Unavailable Unavailable RAYA, H JANETH MD Unavailable Unavailable RAYA, H JANETH MD Unavailable Unavailable RAYA, H JANETH MD Unavailable Unavailable RAYA, H JANETH MD Unavailable Unavailable RAYA, H JANETH MD Unavailable Unavailable RAYA, H JANETH MD Unavailable Unavailable RAYA, H JANETH MD Unavailable Unavailable RAYA, H JANETH MD Unavailable Unavailable RAYA, H JANETH MD Unavailable Unavailable RAYA, H JANETH MD Unavailable Unavailable RAYA, H JANETH MD Unavailable Unavailable RAYA, H JANETH MD Unavailable Unavailable RAYA, H JANETH MD Unavailable Unavailable RAYA, H JANETH MD Unavailable Unavailable RAYA, H JANETH MD Unavailable Unavailable RAYA, H JANETH MD Unavailable Unavailable RAYA, H JANETH MD Unavailable Unavailable RAYA, H JANETH MD Unavailable Unavailable RAYA, H JANETH MD Unavailable Unavailable RAYA, H JANETH MD Unavailable Unavailable RAYA, H JANETH MD Unavailable Unavailable RAYA, H JANETH MD Unavailable Unavailable RAYA, H JANETH MD Unavailable Unavailable RAYA, H JANETH MD Unavailable Unavailable RAYA, H JANETH MD Unavailable Unavailable RAYA, H JANETH MD Unavailable Unavailable RAYA, H JANETH MD Unavailable Unavailable RAYA, Yusra FOWLER MD Unavailable Unavailable Chong De La Torre MD Unavailable Unavailable RING, K FERMIN PA Unavailable Unavailable RING, K FERMIN PA Unavailable Unavailable RING, K FERMIN PA Unavailable Unavailable RING, K FERMIN PA Unavailable Unavailable RING, K FERMIN PA Unavailable Unavailable RING, K FERMIN PA Unavailable Unavailable RING, K FERMIN PA Unavailable Unavailable RING, K FERMIN PA Unavailable Unavailable RING, K FERMIN PA Unavailable Unavailable RING, K FERMIN PA Unavailable Unavailable RING, K FERMIN PA Unavailable Unavailable RING, K FERMIN PA Unavailable Unavailable RING, K FERMIN PA Unavailable Unavailable RING, K FERMIN PA Unavailable Unavailable RING, K FERMIN PA Unavailable Unavailable RING, K FERMIN PA Unavailable Unavailable RING, K FERMIN PA Unavailable Unavailable RING, K FERMIN PA Unavailable Unavailable RING, K FERMIN PA Unavailable Unavailable RING, K FERMIN PA Unavailable Unavailable RING, K FERMIN PA Unavailable Unavailable BLAIR GUTIERREZ MD Unavailable Unavailable BLAIR GUTIERREZ MD Unavailable Unavailable BLAIR GUTIERREZ MD Unavailable Unavailable BLAIR GUTIERREZ MD Unavailable Unavailable BLAIR GUTIERREZ MD Unavailable Unavailable BLAIR GUTIERREZ MD Unavailable Unavailable REINDL, BLAIR MIRZA Unavailable Unavailable REINDL, BLAIR MIRZA Unavailable Unavailable REINDL, BLAIR MIRZA Unavailable Unavailable REINDL, BLAIR MIRZA Unavailable Unavailable REINDL, BLAIR MIRZA Unavailable Unavailable REINDL, BLAIR MIRZA Unavailable Unavailable REINDL, BLAIR MIRZA Unavailable Unavailable REINDL, BLAIR MIRZA Unavailable Unavailable REINDL, BLAIR MIRZA Unavailable Unavailable REINDL, BLAIR MIRZA Unavailable Unavailable REINDL, BLAIR MIRZA Unavailable Unavailable REINDL, BLAIR MIRZA Unavailable Unavailable REINDL, BLAIR MIRZA Unavailable Unavailable REINDL, BLAIR MIRZA Unavailable Unavailable REINDL, BLAIR MIRZA Unavailable Unavailable REINDL, BLAIR MIRZA Unavailable Unavailable REINDL, BLAIR MIRZA Unavailable Unavailable REINDL, BLAIR MIRZA Unavailable Unavailable REINDL, BLAIR MIRZA Unavailable Unavailable REINDL, BLAIR MIRZA Unavailable Unavailable REINDL, BLAIR MIRZA Unavailable Unavailable REINDL, BLAIR MIRZA Unavailable Unavailable REINDL, BLAIR MIRZA Unavailable Unavailable REINDL, BLAIR MIRZA Unavailable Unavailable REINDL, BLAIR MIRZA Unavailable Unavailable REINDL, BLAIR MIRZA Unavailable Unavailable REINDL, BLAIR MIRZA Unavailable Unavailable REINDL, BLAIR MIRZA Unavailable Unavailable REINDL, BLAIR MIRZA Unavailable Unavailable REINDL, BLAIR MIRZA Unavailable Unavailable REINDL, BLAIR MIRZA Unavailable Unavailable REINDL, BLAIR MIRZA Unavailable Unavailable REINDL, BLAIR MIRZA Unavailable Unavailable REINDL, BLAIR MIRZA Unavailable Unavailable REINDL, BLAIR MIRZA Unavailable Unavailable REINDL, BLAIR MIRZA Unavailable Unavailable REINDL, BLAIR MIRZA Unavailable Unavailable REINDL, BLAIR MIRZA Unavailable Unavailable Chong De La Torre MD Unavailable [phone] Chong De La Torre MD Unavailable [phone] Chong De La Torre MD Unavailable [phone] Lanre Hernandez MD Unavailable Unavailable Lanre Hernandez MD Unavailable Unavailable Lanre Hernandez MD Unavailable Unavailable Lanre Hernandez MD Unavailable Unavailable Lanre Hernandez MD Unavailable Unavailable Lanre Hernandez MD Unavailable Unavailable Lanre Hernandez MD Unavailable Unavailable Lanre Hernandez MD Unavailable Unavailable Lanre Hernandez MD Unavailable Unavailable Lanre Hernandez MD Unavailable Unavailable Lanre Hernandez MD Unavailable Unavailable Lanre Hernandez MD Unavailable Unavailable Lanre Hernandez MD Unavailable Unavailable Lanre Hernandez MD Unavailable Unavailable Lanre Hernandez MD Unavailable Unavailable Lanre Hernandez MD Unavailable Unavailable Lanre Hernandez MD Unavailable Unavailable Lanre Hernandez MD Unavailable Unavailable Lanre Hernandez MD Unavailable Unavailable Lanre Hernandez MD Unavailable Unavailable Lanre Hernandez MD Unavailable Unavailable Lanre Hernandez MD Unavailable Unavailable Lanre Hernandez MD Unavailable Unavailable Lanre Hernandez MD Unavailable Unavailable Lanre Hernandez MD Unavailable Unavailable Hernandez, Lanre Lu MD Unavailable Unavailable Hernandez, Lanre Lu MD Unavailable Unavailable Hernandez, Lanre Lu MD Unavailable Unavailable Hernandez, Lanre Lu MD Unavailable Unavailable Hernandez, Lanre Lu MD Unavailable Unavailable Hernandez, Lanre Lu MD Unavailable Unavailable Hernandez, Lanre Lu MD Unavailable Unavailable Hernandez, Lanre Lu MD Unavailable Unavailable Hernandez, Lanre Lu MD Unavailable Unavailable Hernandez, Lanre Lu MD Unavailable Unavailable Hernandez, Lanre Lu MD Unavailable Unavailable Hernandez, Lanre Lu MD Unavailable Unavailable Hernandez, Lanre Lu MD Unavailable Unavailable Hernandez, Lanre Lu MD Unavailable Unavailable Hernandez, Lanre Lu MD Unavailable Unavailable Hernandez, Lanre Lu MD Unavailable Unavailable Hernandez, Lanre Lu MD Unavailable Unavailable Hernandez, Lanre Lu MD Unavailable Unavailable Hernandez, Lanre Lu MD Unavailable Unavailable Hernandez, Lanre Lu MD Unavailable Unavailable Hernandez, Lanre Lu MD Unavailable Unavailable Hernandez, Lanre Lu MD Unavailable Unavailable Hernandez, Lanre Lu MD Unavailable Unavailable Hernandez, Lanre Lu MD Unavailable Unavailable Hernandez, Lanre Lu MD Unavailable Unavailable Hernandez, Lanre Lu MD Unavailable Unavailable LETTIERE, A PEPPER PA Unavailable Unavailable LETTIERE, A PEPPER PA Unavailable Unavailable LETTIERE, A PEPPER PA Unavailable Unavailable LETTIERE, A PEPPER PA Unavailable Unavailable LETTIERE, A PEPPER PA Unavailable Unavailable LETTIERE, A PEPPER PA Unavailable Unavailable LETTIERE, A PEPPER PA Unavailable Unavailable LETTIERE, A PEPPER PA Unavailable Unavailable LETTIERE, A PEPPER PA Unavailable Unavailable LETTIERE, A PEPPER PA Unavailable Unavailable LETTIERE, A PEPPER PA Unavailable Unavailable LETTIERE, A PEPPER PA Unavailable Unavailable LETTIERE, A PEPPER PA Unavailable Unavailable LETTIERE, A PEPPER PA Unavailable Unavailable LETTIERE, A PEPPER PA Unavailable Unavailable LETTIERE, A PEPPER PA Unavailable Unavailable LETTIERE, A PEPPER PA Unavailable Unavailable LETTIERE, A PEPPER PA Unavailable Unavailable LETTIERE, A PEPPER PA Unavailable Unavailable LETTIERE, A PEPPER PA Unavailable Unavailable LETTIERE, A PEPPER PA Unavailable Unavailable LETTIERE, A PEPPER PA Unavailable Unavailable LETTIERE, A PEPPER PA Unavailable Unavailable LETTIERE, A PEPPER PA Unavailable Unavailable LETTIERE, A PEPPER PA Unavailable Unavailable LETTIERE, A PEPPER PA Unavailable Unavailable LETTIERE, A PEPPER PA Unavailable Unavailable LETTIERE, A PEPPER PA Unavailable Unavailable LETTIERE, A PEPPER PA Unavailable Unavailable Re-disclosure Warning The records that you are about to access may contain information from federally-assisted alcohol or drug abuse programs. If such information is present, then the following federally mandated warning applies: This information has been disclosed to you from records protected by federal confidentiality rules (42 CFR part 2). The federal rules prohibit you from making any further disclosure of this information unless further disclosure is expressly permitted by the written consent of the person to whom it pertains or as otherwise permitted by 42 CFR part 2. A general authorization for the release of medical or other information is NOT sufficient for this purpose. The Federal rules restrict any use of the information to criminally investigate or prosecute any alcohol or drug abuse patient.The records that you are about to access may contain highly sensitive health information, the redisclosure of which is protected by Article 27-F of the [facility] Public Health law. If you continue you may have access to information: Regarding HIV / AIDS; Provided by facilities licensed or operated by the [facility] Office of Mental Health; or Provided by the [facility] Office for People With Developmental Disabilities. If such information is present, then the following [facility] mandated warning applies: This information has been disclosed to you from confidential records which are protected by state law. State law prohibits you from making any further disclosure of this information without the specific written consent of the person to whom it pertains, or as otherwise permitted by law. Any unauthorized further disclosure in violation of state law may result in a fine or senior care sentence or both. A general authorization for the release of medical or other information is NOT sufficient authorization for further disc losure. Allergies and Adverse Reactions Type Description Substance Reaction Status Data Source(s ) Drug allergy Drug allergy No Known Allergies [facility] Family History Family Member Name Family Member Gender Family Member Status Date o f Status Description Data Source(s) Unknown Unknown Problem [facility] ([facility], ) Unknown Female Encounters Encounter Providers Location Date Indications Data Source(s ) Outpatient Attender: JANETH DOS SANTOS MD [facility] 02/2021 08:30:00 AM EST [facility] ([facility] Outpatient Attender: PEPPER thrasher 09/07/2020 07:25:00 AM EST [facility] ([facility] Outpatient [id number] 07/15/2020 02:59:00 PM EDT [facility] Inpatient Attender: Chong De La Torre MD Attender: Chong De La Torre MDAdmitter: Chong De La Torre MD ED-MSP 07/15/2020 11:51:00 AM EDT - 07/18/2020 02:13:00 PM EDT F1020 [facility] F1020 Patient discharged. Outpatient Attender: JANETH DOS SANTOS MD [place] [facility] 04:00:00 PM EDT [facility] ([facility] Outpatient Attender: FERMIN Benoit 06/15/2020 09:00:00 AM EDT [facility] ([facility]) Outpatient Attender: JANETH DOS SANTOS MD [place] [facility] 08:45:00 AM EDT [facility] ([facility] Outpatient Attender: BLAIR Matta/Andie/Ramiro/Tiago rivera 02/17/2020 01:30:00 PM EDT [facility] ([facility] ) Outpatient Referrer: Aly Hernandez MD 11/29/2019 12:48:0 0 PM EST [facility] Outpatient Attender: JANETH DOS SANTOS MD [place] [facility] 07:30:00 AM EST [facility] ([facility] Outpatient Referrer: Aly Hernandez MD 11/04/2019 07:51:0 0 PM EST [facility] Medications Medication Brand Name Start Date Product Form Dose Route Admi nistrative Instructions Pharmacy Instructions Status Indications Reaction Description Data Source(s) 100 mg 12/09/2020 12:00:00 AM EST tablet 30 TAKE ONE TABLET BY MOUTH ONCE DAILY TAKE ONE TABLET BY MOUTH ONCE DAILY SOLD: 12/10/2020 [facility] 75 mcg 12/08/2020 12:00:00 AM EST tablet 15 TAKE 1/2 TABLET BY MOUTH ONCE DAILY TAKE 1/2 TABLET BY MOUTH ONCE DAILY SOLD: 12/10/2020 [facility] Hydrochlorothiazide 12.5 MG / Lisinopril 10 MG Oral Ta blet 10-12.5 mg LISINOPRIL/HYDROCHLOROTHIAZIDE 12/08/2020 12:00:00 AM EST tablet 30 TAKE ONE TABLET BY MOUTH ONCE DAILY TAKE ONE TABLET BY MOUTH ONCE DAILY SOLD: 12/10/2020 [facility] atorvastatin 10 MG Oral Tablet ATORVASTATIN CALCIUM 11/08/2020 1 2:00:00 AM EST tablet 30 TAKE ONE TABLET BY MOUTH ONCE DA DENA TAKE ONE TABLET BY MOUTH ONCE DAILY SOLD: 11/12/2020 [facility] atorvastatin 10 MG Oral Tablet ATORVASTATIN CALCIUM 11/08/2020 1 2:00:00 AM EST tablet 30 TAKE ONE TABLET BY MOUTH ONCE DA DENA TAKE ONE TABLET BY MOUTH ONCE DAILY SOLD: 12/10/2020 [facility] 333 mg 07/19/2020 12:00:00 AM EDT tablet,delayed release (DR/EC) 180 TAKE TWO TABLETS BY MOUTH THREE TIMES A DAY TAKE TWO TABLETS BY MOUTH THREE TIMES A DAY SOLD: 07/22/2020 [facility] 3 mg 07/08/2020 12:00:00 AM EDT capsule,delayed,extend. release 90 TAKE THREE CAPSULES BY MOUTH EVERY DAY TAKE THREE CAPSULES BY MOUTH EVERY DAY SOLD: 07/10/2020 [facility] 3 mg 07/08/2020 12:00:00 AM EDT capsule,delayed,extend. release 90 TAKE THREE CAPSULES BY MOUTH EVERY DAY TAKE THREE CAPSULES BY MOUTH EVERY DAY SOLD: 08/13/2020 [facility] 75 mcg 07/05/2020 12:00:00 AM EDT tablet 15 TAKE 1/2 TABLET BY MOUTH ONCE DAILY TAKE 1/2 TABLET BY MOUTH ONCE DAILY SOLD: 10/14/2020 [facility] 75 mcg 07/05/2020 12:00:00 AM EDT tablet 15 TAKE 1/2 TABLET BY MOUTH ONCE DAILY TAKE 1/2 TABLET BY MOUTH ONCE DAILY SOLD: 09/14/2020 [facility] 75 mcg 07/05/2020 12:00:00 AM EDT tablet 15 TAKE 1/2 TABLET BY MOUTH ONCE DAILY TAKE 1/2 TABLET BY MOUTH ONCE DAILY SOLD: 08/13/2020 [facility] 75 mcg 07/05/2020 12:00:00 AM EDT tablet 15 TAKE 1/2 TABLET BY MOUTH ONCE DAILY TAKE 1/2 TABLET BY MOUTH ONCE DAILY SOLD: 11/12/2020 [facility] 75 mcg 07/05/2020 12:00:00 AM EDT tablet 15 TAKE 1/2 TABLET BY MOUTH ONCE DAILY TAKE 1/2 TABLET BY MOUTH ONCE DAILY SOLD: 07/10/2020 [facility] Cyclobenzaprine hydrochloride 10 MG Oral Tablet Cyclobenzapr ine HCL 06/15/2020 12:00:00 AM EDT ORAL completed [facility] ([facility]) Cyclobenzaprine hydrochloride 10 MG Oral Tablet CYCLOBENZAPR INE HCL 06/15/2020 12:00:00 AM EDT tablet 15 TAKE ONE TABLET BY MOUTH EVERY 8 HOURS NEEDED FOR PAIN TAKE ONE TABLET BY MOUTH EVERY 8 HOURS NEEDED FOR PAIN SO LD: 06/16/2020 [facility] 17 gram/dose 06/07/2020 12:00:00 AM EDT powder [address] GUTIERREZ COLON PREPARATION INSTRUCTIONS USE DIRECTED SEE DR GUTIERREZ COLON PREPARATION INSTRUCTIONS SOLD: 06/10/2020 [facility] 400 mg/5 mL 06/07/2020 12:00:00 AM EDT suspension 473 TAKE 45ML BY MOUTH ABOUT 1-2 DAYS BEFORE COLONOSCOPY PREP TAKE 45ML BY MOUTH ABOUT 1-2 DAYS BEFORE COLONOSCOPY PREP SOLD: 06/10/2020 [facility] 0.5 ML Streptococcus pneumoniae serotype 1 capsular antigen diphtheria [id number] protein conjugate vaccine 0.0044 MG/ML / Streptococcus pneumoniae serotype 14 capsular antigen diphtheria [id number] protein conjugate vaccine 0.0044 MG/ML / Streptococcus pneumonia Prevnar 13 05/13/2020 12:00:00 AM EDT active [facility] 100 mg 05/05/2020 12:00:00 AM EDT tablet 30 TAKE ONE TABLET BY MOUTH EVERY DAY TAKE ONE TABLET BY MOUTH EVERY DAY SOLD: 08/13/2020 [facility] 100 mg 05/05/2020 12:00:00 AM EDT tablet 30 TAKE ONE TABLET BY MOUTH EVERY DAY TAKE ONE TABLET BY MOUTH EVERY DAY SOLD: 11/12/2020 [facility] 100 mg 05/05/2020 12:00:00 AM EDT tablet 30 TAKE ONE TABLET BY MOUTH EVERY DAY TAKE ONE TABLET BY MOUTH EVERY DAY SOLD: 07/10/2020 [facility] 10-12.5 mg 05/05/2020 12:00:00 AM EDT tablet 30 TAKE ONE TABLET BY MOUTH EVERY DAY TAKE ONE TABLET BY MOUTH EVERY DAY SOLD: 11/12/2020 [facility] 10-12.5 mg 05/05/2020 12:00:00 AM EDT tablet 30 TAKE ONE TABLET BY MOUTH EVERY DAY TAKE ONE TABLET BY MOUTH EVERY DAY SOLD: 10/14/2020 [facility] 100 mg 05/05/2020 12:00:00 AM EDT tablet 30 TAKE ONE TABLET BY MOUTH EVERY DAY TAKE ONE TABLET BY MOUTH EVERY DAY SOLD: 05/10/2020 [facility] 100 mg 05/05/2020 12:00:00 AM EDT tablet 30 TAKE ONE TABLET BY MOUTH EVERY DAY TAKE ONE TABLET BY MOUTH EVERY DAY SOLD: 06/10/2020 [facility] Hydrochlorothiazide 12.5 MG / Lisinopril 10 MG Oral Ta blet 10-12.5 mg LISINOPRIL/HYDROCHLOROTHIAZIDE 05/05/2020 12:00:00 AM EDT tablet 30 TAKE ONE TABLET BY MOUTH EVERY DAY TAKE ONE TABLET BY MOUTH EVERY DAY SOLD: 05/10/2020 [facility] 10-12.5 mg 05/05/2020 12:00:00 AM EDT tablet 30 TAKE ONE TABLET BY MOUTH EVERY DAY TAKE ONE TABLET BY MOUTH EVERY DAY SOLD: 09/14/2020 [facility] Hydrochlorothiazide 12.5 MG / Lisinopril 10 MG Oral Ta blet 10-12.5 mg LISINOPRIL/HYDROCHLOROTHIAZIDE 05/05/2020 12:00:00 AM EDT tablet 30 TAKE ONE TABLET BY MOUTH EVERY DAY TAKE ONE TABLET BY MOUTH EVERY DAY SOLD: 06/10/2020 [facility] Hydrochlorothiazide 12.5 MG / Lisinopril 10 MG Oral Ta blet 10-12.5 mg LISINOPRIL/HYDROCHLOROTHIAZIDE 05/05/2020 12:00:00 AM EDT tablet 30 TAKE ONE TABLET BY MOUTH EVERY DAY TAKE ONE TABLET BY MOUTH EVERY DAY SOLD: 07/10/2020 [facility] 100 mg 05/05/2020 12:00:00 AM EDT tablet 30 TAKE ONE TABLET BY MOUTH EVERY DAY TAKE ONE TABLET BY MOUTH EVERY DAY SOLD: 10/14/2020 [facility] 10-12.5 mg 05/05/2020 12:00:00 AM EDT tablet 30 TAKE ONE TABLET BY MOUTH EVERY DAY TAKE ONE TABLET BY MOUTH EVERY DAY SOLD: 08/13/2020 [facility] 100 mg 05/05/2020 12:00:00 AM EDT tablet 30 TAKE ONE TABLET BY MOUTH EVERY DAY TAKE ONE TABLET BY MOUTH EVERY DAY SOLD: 09/14/2020 [facility] 10 mg 04/08/2020 12:00:00 AM EDT tablet 30 TAKE ONE TABLET BY MOUTH EVERY DAY TAKE ONE TABLET BY MOUTH EVERY DAY SOLD: 06/10/2020 [facility] atorvastatin 10 MG Oral Tablet ATORVASTATIN CALCIUM 04/08/2020 1 2:00:00 AM EDT tablet 30 TAKE ONE TABLET BY MOUTH EVERY D AY TAKE ONE TABLET BY MOUTH EVERY DAY SOLD: 08/13/2020 [facility] 10 mg 04/08/2020 12:00:00 AM EDT tablet 30 TAKE ONE TABLET BY MOUTH EVERY DAY TAKE ONE TABLET BY MOUTH EVERY DAY SOLD: 04/10/2020 [facility] 10 mg 04/08/2020 12:00:00 AM EDT tablet 30 TAKE ONE TABLET BY MOUTH EVERY DAY TAKE ONE TABLET BY MOUTH EVERY DAY SOLD: 05/10/2020 [facility] atorvastatin 10 MG Oral Tablet ATORVASTATIN CALCIUM 04/08/2020 1 2:00:00 AM EDT tablet 30 TAKE ONE TABLET BY MOUTH EVERY D AY TAKE ONE TABLET BY MOUTH EVERY DAY SOLD: 09/14/2020 [facility] atorvastatin 10 MG Oral Tablet ATORVASTATIN CALCIUM 04/08/2020 1 2:00:00 AM EDT tablet 30 TAKE ONE TABLET BY MOUTH EVERY D AY TAKE ONE TABLET BY MOUTH EVERY DAY SOLD: 10/14/2020 [facility] atorvastatin 10 MG Oral Tablet ATORVASTATIN CALCIUM 04/08/2020 1 2:00:00 AM EDT tablet 30 TAKE ONE TABLET BY MOUTH EVERY D AY TAKE ONE TABLET BY MOUTH EVERY DAY SOLD: 07/10/2020 [facility] 3 mg 03/17/2020 12:00:00 AM EDT capsule,delayed,extend. release 90 TAKE THREE CAPSULES BY MOUTH EVERY DAY TAKE THREE CAPSULES BY MOUTH EVERY DAY SOLD: 03/18/2020 [facility] Budesonide 3 MG Delayed Release Oral Capsule BUDESONIDE 03/17/2020 12:00:00 AM EDT capsule,delayed,extend.release 23 TAKE THREE CAPSULES BY MOUTH EVERY DAY TAKE THREE CAPSULES BY MOUTH EVERY DAY SOLD: 04/19/2020 [facility] 3 mg 03/17/2020 12:00:00 AM EDT capsule,delayed,extend. release 36 TAKE THREE CAPSULES BY MOUTH EVERY DAY TAKE THREE CAPSULES BY MOUTH EVERY DAY SOLD: 04/27/2020 [facility] Budesonide 3 MG Delayed Release Oral Capsule BUDESONIDE 03/17/2020 12:00:00 AM EDT capsule,delayed,extend.release 90 TAKE THREE CAPSULES BY MOUTH EVERY DAY TAKE THREE CAPSULES BY MOUTH EVERY DAY SOLD: 06/10/2020 [facility] Budesonide 3 MG Delayed Release Oral Capsule BUDESONIDE 03/17/2020 12:00:00 AM EDT capsule,delayed,extend.release 90 TAKE THREE CAPSULES BY MOUTH EVERY DAY TAKE THREE CAPSULES BY MOUTH EVERY DAY SOLD: 05/10/2020 [facility] 75 mcg 02/04/2020 12:00:00 AM EDT tablet 15 TAKE 1/2 TABLET BY MOUTH ONCE DAILY TAKE 1/2 TABLET BY MOUTH ONCE DAILY SOLD: 03/14/2020 [facility] 75 mcg 02/04/2020 12:00:00 AM EDT tablet 15 TAKE 1/2 TABLET BY MOUTH ONCE DAILY TAKE 1/2 TABLET BY MOUTH ONCE DAILY SOLD: 05/10/2020 [facility] 75 mcg 02/04/2020 12:00:00 AM EDT tablet 15 TAKE 1/2 TABLET BY MOUTH ONCE DAILY TAKE 1/2 TABLET BY MOUTH ONCE DAILY SOLD: 06/10/2020 [facility] 75 mcg 02/04/2020 12:00:00 AM EDT tablet 15 TAKE 1/2 TABLET BY MOUTH ONCE DAILY TAKE 1/2 TABLET BY MOUTH ONCE DAILY SOLD: 04/10/2020 [facility] 75 mcg 02/04/2020 12:00:00 AM EDT tablet 15 TAKE 1/2 TABLET BY MOUTH ONCE DAILY TAKE 1/2 TABLET BY MOUTH ONCE DAILY SOLD: 02/10/2020 [facility] 100 mg 11/12/2019 12:00:00 AM EST tablet 30 TAKE ONE TABLET BY MOUTH EVERY DAY TAKE ONE TABLET BY MOUTH EVERY DAY SOLD: 04/10/2020 [facility] 100 mg 11/12/2019 12:00:00 AM EST tablet 30 TAKE ONE TABLET BY MOUTH EVERY DAY TAKE ONE TABLET BY MOUTH EVERY DAY SOLD: 03/14/2020 [facility] 100 mg 11/12/2019 12:00:00 AM EST tablet 30 TAKE ONE TABLET BY MOUTH EVERY DAY TAKE ONE TABLET BY MOUTH EVERY DAY SOLD: 01/10/2020 [facility] Hydrochlorothiazide 12.5 MG / Lisinopril 10 MG Oral Ta blet 10-12.5 mg LISINOPRIL/HYDROCHLOROTHIAZIDE 11/12/2019 12:00:00 AM EST tablet 30 TAKE ONE TABLET BY MOUTH EVERY DAY TAKE ONE TABLET BY MOUTH EVERY DAY SOLD: 04/10/2020 [facility] 100 mg 11/12/2019 12:00:00 AM EST tablet 30 TAKE ONE TABLET BY MOUTH EVERY DAY TAKE ONE TABLET BY MOUTH EVERY DAY SOLD: 02/10/2020 [facility] Hydrochlorothiazide 12.5 MG / Lisinopril 10 MG Oral Ta blet 10-12.5 mg LISINOPRIL/HYDROCHLOROTHIAZIDE 11/12/2019 12:00:00 AM EST tablet 30 TAKE ONE TABLET BY MOUTH EVERY DAY TAKE ONE TABLET BY MOUTH EVERY DAY SOLD: 01/10/2020 [facility] Hydrochlorothiazide 12.5 MG / Lisinopril 10 MG Oral Ta blet 10-12.5 mg LISINOPRIL/HYDROCHLOROTHIAZIDE 11/12/2019 12:00:00 AM EST tablet 30 TAKE ONE TABLET BY MOUTH EVERY DAY TAKE ONE TABLET BY MOUTH EVERY DAY SOLD: 03/14/2020 [facility] Hydrochlorothiazide 12.5 MG / Lisinopril 10 MG Oral Ta blet 10-12.5 mg LISINOPRIL/HYDROCHLOROTHIAZIDE 11/12/2019 12:00:00 AM EST tablet 30 TAKE ONE TABLET BY MOUTH EVERY DAY TAKE ONE TABLET BY MOUTH EVERY DAY SOLD: 11/13/2019 [facility] Hydrochlorothiazide 12.5 MG / Lisinopril 10 MG Oral Ta blet 10-12.5 mg LISINOPRIL/HYDROCHLOROTHIAZIDE 11/12/2019 12:00:00 AM EST tablet 30 TAKE ONE TABLET BY MOUTH EVERY DAY TAKE ONE TABLET BY MOUTH EVERY DAY SOLD: 12/12/2019 [facility] Hydrochlorothiazide 12.5 MG / Lisinopril 10 MG Oral Ta blet 10-12.5 mg LISINOPRIL/HYDROCHLOROTHIAZIDE 11/12/2019 12:00:00 AM EST tablet 30 TAKE ONE TABLET BY MOUTH EVERY DAY TAKE ONE TABLET BY MOUTH EVERY DAY SOLD: 02/10/2020 [facility] 100 mg 11/12/2019 12:00:00 AM EST tablet 30 TAKE ONE TABLET BY MOUTH EVERY DAY TAKE ONE TABLET BY MOUTH EVERY DAY SOLD: 11/13/2019 [facility] 100 mg 11/12/2019 12:00:00 AM EST tablet 30 TAKE ONE TABLET BY MOUTH EVERY DAY TAKE ONE TABLET BY MOUTH EVERY DAY SOLD: 12/12/2019 [facility] 10 mg 10/12/2019 12:00:00 AM EST tablet 30 TAKE ONE TABLET BY MOUTH EVERY DAY TAKE ONE TABLET BY MOUTH EVERY DAY SOLD: 01/10/2020 [facility] 10 mg 10/12/2019 12:00:00 AM EST tablet 30 TAKE ONE TABLET BY MOUTH EVERY DAY TAKE ONE TABLET BY MOUTH EVERY DAY SOLD: 03/14/2020 [facility] 10 mg 10/12/2019 12:00:00 AM EST tablet 30 TAKE ONE TABLET BY MOUTH EVERY DAY TAKE ONE TABLET BY MOUTH EVERY DAY SOLD: 12/12/2019 [facility] 10 mg 10/12/2019 12:00:00 AM EST tablet 30 TAKE ONE TABLET BY MOUTH EVERY DAY TAKE ONE TABLET BY MOUTH EVERY DAY SOLD: 02/10/2020 [facility] 10 mg 10/12/2019 12:00:00 AM EST tablet 30 TAKE ONE TABLET BY MOUTH EVERY DAY TAKE ONE TABLET BY MOUTH EVERY DAY SOLD: 11/13/2019 [facility] 75 mcg 10/12/2019 12:00:00 AM EST tablet 15 TAKE 1/2 TABLET BY MOUTH ONCE DAILY TAKE 1/2 TABLET BY MOUTH ONCE DAILY SOLD: 12/12/2019 [facility] 75 mcg 10/12/2019 12:00:00 AM EST tablet 15 TAKE 1/2 TABLET BY MOUTH ONCE DAILY TAKE 1/2 TABLET BY MOUTH ONCE DAILY SOLD: 01/10/2020 [facility] 75 mcg 10/12/2019 12:00:00 AM EST tablet 15 TAKE 1/2 TABLET BY MOUTH ONCE DAILY TAKE 1/2 TABLET BY MOUTH ONCE DAILY SOLD: 11/13/2019 [facility] 3 mg 05/15/2019 12:00:00 AM EDT capsule,delayed,extend. release 90 TAKE THREE CAPSULES BY MOUTH EVERY DAY FOR MICROSCOPIC COLITIS TAKE THREE CAPSULES BY MOUTH EVERY DAY FOR MICROSCOPIC COLITIS SOLD: 02/10/2020 [facility] Insurance Providers Payer name Policy type / Coverage type Policy ID Covered alliance party ID Covered alliance party's relationship to jane Policy Jane Plan Information [facility] [id number] SP [id number] [facility] [id number] SP [id number] [facility] O [id number] S [id number] [facility] SELECT CARE [id number] S [id number] [facility] [id number] SP [id number] [employer] [place] PPO 302/307 [id number] SP [id number] SELF PAY ONLY SP [employer] B [id number] S VYS [id number] [employer] [place] PPO 302/307 [id number] SP [id number] [employer] Medigap Part B [id number] Self [id number] [employer] Part B [id number] Self [id number] [employer] Health Maintenance Organization (HMO) [id number] Self [id number] [employer] Part B [id number] Self [id number] [employer] B [id number] Self [id number] [employer] Health Maintenance Organization (HMO) [id number] Self [id number] [employer] B [id number] Self [id number] [employer] [id number] Self [id number] [employer] Health Maintenance Organization (HMO) [id number] Self [id number] [employer] H [id number] Self [id number] [employer] [id number] Self [id number] [employer] B [id number] Self [id number] [employer] Health Maintenance Organization (HMO) [id number] Self [id number] [employer] Part B [id number] Self [id number] [employer] Part B [id number] Self [id number] [employer] Health Maintenance Organization (HMO) [id number] Self [id number] [employer] B [id number] S [id number] [id number] [employer] B [id number] S [id number] [id number] BC/BS Of [place] Commercial Self BCBS OF [place] 306/8 P [id number] S [id number] Problems, Conditions, and Diagnoses Code Display Name Description Problem Type Effective Dates Data Source(s) Z23 Encounter for immunization ENCOUNTER FOR IMMUNIZATION Diagnosis 07/15/2020 11:51:00 AM [facility] Surgeries/Procedures Procedure Description Date Indications Data Source(s) IADNA NEISSERIA GONORRHOEAE AMPLIFIED PROBE TQ N.GONORRHOEAE DNA AMP PROB 07/15/2020 12:00:00 AM [facility] IADNA CHLAMYDIA TRACHOMATIS AMPLIFIED PROBE TQ CHYLMD TRACH DNA AMP PROBE 07/15/2020 12:00:00 AM [facility] THYROID STIMULATING HORMONE TSH ASSAY THYROID STIM HORMONE 0 07/15/2020 12:00:00 AM [facility] HEPATITIS ANTIBODY HAAB TOTAL HEPATITIS A ANTIBODY 07/15/2020 12:00 :00 AM [facility] IAAD EIA HEPATITIS B SURFACE ANTIGEN HEPATITIS B SURFACE AG IA 07/15/2020 12:00:00 AM [facility] ANTIBODY TREPONEMA PALLIDUM TREPONEMA PALLIDUM 07/15/2020 12:00:00 AM [facility] HEPATITIS C ANTIBODY HEPATITIS C AB TEST 07/15/2020 12:00:00 AM [facility] URNLS DIP STICK/TABLET RGNT AUTO W/O MICROSCOPY URINALYSIS A UTO W/O SCOPE 07/15/2020 12:00:00 AM [facility] BLOOD COUNT COMPLETE AUTO&AUTO DIFRNTL WBC COUNT COMPLETE CB C W/AUTO DIFF WBC 07/15/2020 12:00:00 AM [facility] [address] DRUG SCREEN QUANTALCOHOLS 07/15/2020 12:00:00 AM [facility] [address] DRUG TEST PRSMV DIR OPT OBS 07/15/2020 12:00:00 AM [facility] MAGNESIUM ASSAY OF MAGNESIUM 07/15/2020 12:00:00 AM [facility] PHOSPHORUS INORGANIC ASSAY OF PHOSPHORUS 07/15/2020 12:00:00 AM [facility] HEPATIC FUNCTION PANEL HEPATIC FUNCTION PANEL 07/15/2020 12:00:00 A M [facility] COMPREHENSIVE METABOLIC PANEL COMPREHEN METABOLIC PANEL 06/28 12:00:00 AM [facility] Non-covered item or service NON-COVERED ITEM OR SERVICE 06/28 12:00:00 AM [facility] Injection, enoxaparin sodium, 10 mg 07/15/2020 12:00:0 0 AM [facility] [address] IIV4 VACC NO PRSV 0.5 ML IM 07/15/2020 12:00:00 AM [facility] Results ID Date Data Source [id number] 12/18/2020 09:00:00 AM EST [facility] Name Value Range Interpretation Code Description Data Kasie rce(s) Supporting Document(s) SARS coronavirus 2 RNA Not Detected [facility] [place] This lab was ordered by [facility] and reported by [facility]. ID Date Data Source [id number] 12/02/2020 09:48:00 AM EST [facility] Name Value Range Interpretation Code Description Data Kasie rce(s) Supporting Document(s) Thyrotropin [Units/volume] in Serum or Plasma 1.077 ulU/mL 0.60-4.8 [facility] ([facility] ID Date Data Source [id number] 12/02/2020 09:47:00 AM EST [facility] ([facility] Name Value Range Interpretation Code Description Data Kasie rce(s) Supporting Document(s) Urate [Mass/volume] in Serum or Plasma 4.9 mg/dL 3.4-7.0 [facility] ([facility] CHRONIC KIDNEY DISEASE STAGING PER NKF: MALE GFR INTERPRETATION: 20-49 YRS: [...] DESIRABLE: <130 MG/DL <110 MG/DL BORDERLINE-HIGH RISK: 130- 159 MG/DL 110-129 MG/DL HIGH RISK: >160 MG/DL >130 MG/DL *CHILDREN AND ADOLESCENTS REPRESENTS INDIVIDUALA AGED 2-19 YEARS EXCLUSIVE. ID Date Data Source [id number] 12/02/2020 09:47:00 AM EST [facility] ([facility] Name Value Range Interpretation Code Description Data Kasie rce(s) Supporting Document(s) Chol 144 mg/dL 0-200 [facility] (Count includes the [facility] CHRONIC KIDNEY DISEASE STAGING PER NKF: MALE GFR INTERPRETATION: 20-49 YRS: [...] DESIRABLE: <130 MG/DL <110 MG/DL BORDERLINE-HIGH RISK: 130- 159 MG/DL 110-129 MG/DL HIGH RISK: >160 MG/DL >130 MG/DL *CHILDREN AND ADOLESCENTS REPRESENTS INDIVIDUALA AGED 2-19 YEARS EXCLUSIVE. Trig 33 mg/dL 35-200 Below low normal [facility] ( [facility] CHRONIC KIDNEY DISEASE STAGING PER NKF: MALE GFR INTERPRETATION: 20-49 YRS: [...] DESIRABLE: <130 MG/DL <110 MG/DL BORDERLINE-HIGH RISK: 130- 159 MG/DL 110-129 MG/DL HIGH RISK: >160 MG/DL >130 MG/DL *CHILDREN AND ADOLESCENTS REPRESENTS INDIVIDUALA AGED 2-19 YEARS EXCLUSIVE. Cholesterol in HDL [Mass/volume] in Serum or Plasma 88 mg/dL 35-55 Above high normal [facility] ([facility] ) CHRONIC KIDNEY DISEASE STAGING PER NKF: MALE GFR INTERPRETATION: 20-49 YRS: [...] DESIRABLE: <130 MG/DL <110 MG/DL BORDERLINE-HIGH RISK: 130- 159 MG/DL 110-129 MG/DL HIGH RISK: >160 MG/DL >130 MG/DL *CHILDREN AND ADOLESCENTS REPRESENTS INDIVIDUALA AGED 2-19 YEARS EXCLUSIVE. LDL_C 49 Calc 75-129 Below low normal [facility] ( [facility] CHRONIC KIDNEY DISEASE STAGING PER NKF: MALE GFR INTERPRETATION: 20-49 YRS: [...] DESIRABLE: <130 MG/DL <110 MG/DL BORDERLINE-HIGH RISK: 130- 159 MG/DL 110-129 MG/DL HIGH RISK: >160 MG/DL >130 MG/DL *CHILDREN AND ADOLESCENTS REPRESENTS INDIVIDUALA AGED 2-19 YEARS EXCLUSIVE. Cho/HDL Ratio 1.6 CALC [facility] ([facility] CHRONIC KIDNEY DISEASE STAGING PER NKF: MALE GFR INTERPRETATION: 20-49 YRS: [...] DESIRABLE: <130 MG/DL <110 MG/DL BORDERLINE-HIGH RISK: 130- 159 MG/DL 110-129 MG/DL HIGH RISK: >160 MG/DL >130 MG/DL *CHILDREN AND ADOLESCENTS REPRESENTS INDIVIDUALA AGED 2-19 YEARS EXCLUSIVE. ID Date Data Source [id number] 12/02/2020 09:47:00 AM EST [facility] ([facility] Name Value Range Interpretation Code Description Data Kasie rce(s) Supporting Document(s) Glu 91 mg/dL 70-110 [facility] ([facility] CHRONIC KIDNEY DISEASE STAGING PER NKF: MALE GFR INTERPRETATION: 20-49 YRS: [...] DESIRABLE: <130 MG/DL <110 MG/DL BORDERLINE-HIGH RISK: 130- 159 MG/DL 110-129 MG/DL HIGH RISK: >160 MG/DL >130 MG/DL *CHILDREN AND ADOLESCENTS REPRESENTS INDIVIDUALA AGED 2-19 YEARS EXCLUSIVE. Creat 0.7 mg/dL 0.7-1.2 [facility] ([facility] CHRONIC KIDNEY DISEASE STAGING PER NKF: MALE GFR INTERPRETATION: 20-49 YRS: [...] DESIRABLE: <130 MG/DL <110 MG/DL BORDERLINE-HIGH RISK: 130- 159 MG/DL 110-129 MG/DL HIGH RISK: >160 MG/DL >130 MG/DL *CHILDREN AND ADOLESCENTS REPRESENTS INDIVIDUALA AGED 2-19 YEARS EXCLUSIVE. BUN 8 mg/dL 8-23 [facility] ([facility] CHRONIC KIDNEY DISEASE STAGING PER NKF: MALE GFR INTERPRETATION: 20-49 YRS: [...] DESIRABLE: <130 MG/DL <110 MG/DL BORDERLINE-HIGH RISK: 130- 159 MG/DL 110-129 MG/DL HIGH RISK: >160 MG/DL >130 MG/DL *CHILDREN AND ADOLESCENTS REPRESENTS INDIVIDUALA AGED 2-19 YEARS EXCLUSIVE. Na 134 mmol/L 136-145 Below low normal [facility] ( [facility] CHRONIC KIDNEY DISEASE STAGING PER NKF: MALE GFR INTERPRETATION: 20-49 YRS: [...] DESIRABLE: <130 MG/DL <110 MG/DL BORDERLINE-HIGH RISK: 130- 159 MG/DL 110-129 MG/DL HIGH RISK: >160 MG/DL >130 MG/DL *CHILDREN AND ADOLESCENTS REPRESENTS INDIVIDUALA AGED 2-19 YEARS EXCLUSIVE. BUN/Creatinine Ratio 11.9 Calc [facility] ([facility] CHRONIC KIDNEY DISEASE STAGING PER NKF: MALE GFR INTERPRETATION: 20-49 YRS: [...] DESIRABLE: <130 MG/DL <110 MG/DL BORDERLINE-HIGH RISK: 130- 159 MG/DL 110-129 MG/DL HIGH RISK: >160 MG/DL >130 MG/DL *CHILDREN AND ADOLESCENTS REPRESENTS INDIVIDUALA AGED 2-19 YEARS EXCLUSIVE. K 4.0 mmol/L 3.5-5.1 [facility] ([facility] CHRONIC KIDNEY DISEASE STAGING PER NKF: MALE GFR INTERPRETATION: 20-49 YRS: [...] DESIRABLE: <130 MG/DL <110 MG/DL BORDERLINE-HIGH RISK: 130- 159 MG/DL 110-129 MG/DL HIGH RISK: >160 MG/DL >130 MG/DL *CHILDREN AND ADOLESCENTS REPRESENTS INDIVIDUALA AGED 2-19 YEARS EXCLUSIVE. Co2 27.0 mmol/L 22.0-29.0 [facility] ([facility] CHRONIC KIDNEY DISEASE STAGING PER NKF: MALE GFR INTERPRETATION: 20-49 YRS: [...] DESIRABLE: <130 MG/DL <110 MG/DL BORDERLINE-HIGH RISK: 130- 159 MG/DL 110-129 MG/DL HIGH RISK: >160 MG/DL >130 MG/DL *CHILDREN AND ADOLESCENTS REPRESENTS INDIVIDUALA AGED 2-19 YEARS EXCLUSIVE. CL 96.2 mmol/L 98.0-107.0 Below low normal [facility] ([facility] CHRONIC KIDNEY DISEASE STAGING PER NKF: MALE GFR INTERPRETATION: 20-49 YRS: [...] DESIRABLE: <130 MG/DL <110 MG/DL BORDERLINE-HIGH RISK: 130- 159 MG/DL 110-129 MG/DL HIGH RISK: >160 MG/DL >130 MG/DL *CHILDREN AND ADOLESCENTS REPRESENTS INDIVIDUALA AGED 2-19 YEARS EXCLUSIVE. TP 6.8 g/dL 6.6-8.7 [facility] CHRONIC KIDNEY DISEASE STAGING PER NKF: MALE GFR INTERPRETATION: 20-49 YRS: [...] DESIRABLE: <130 MG/DL <110 MG/DL BORDERLINE-HIGH RISK: 130- 159 MG/DL 110-129 MG/DL HIGH RISK: >160 MG/DL >130 MG/DL *CHILDREN AND ADOLESCENTS REPRESENTS INDIVIDUALA AGED 2-19 YEARS EXCLUSIVE. Alb 4.4 g/dL 3.5-5.2 [facility] ([facility] CHRONIC KIDNEY DISEASE STAGING PER NKF: MALE GFR INTERPRETATION: 20-49 YRS: [...] DESIRABLE: <130 MG/DL <110 MG/DL BORDERLINE-HIGH RISK: 130- 159 MG/DL 110-129 MG/DL HIGH RISK: >160 MG/DL >130 MG/DL *CHILDREN AND ADOLESCENTS REPRESENTS INDIVIDUALA AGED 2-19 YEARS EXCLUSIVE. CA 9.8 mg/dL 8.6-10.2 [facility] ([facility] CHRONIC KIDNEY DISEASE STAGING PER NKF: MALE GFR INTERPRETATION: 20-49 YRS: [...] DESIRABLE: <130 MG/DL <110 MG/DL BORDERLINE-HIGH RISK: 130- 159 MG/DL 110-129 MG/DL HIGH RISK: >160 MG/DL >130 MG/DL *CHILDREN AND ADOLESCENTS REPRESENTS INDIVIDUALA AGED 2-19 YEARS EXCLUSIVE. A/G Ratio 1.9 Calc [facility] ([facility] CHRONIC KIDNEY DISEASE STAGING PER NKF: MALE GFR INTERPRETATION: 20-49 YRS: [...] DESIRABLE: <130 MG/DL <110 MG/DL BORDERLINE-HIGH RISK: 130- 159 MG/DL 110-129 MG/DL HIGH RISK: >160 MG/DL >130 MG/DL *CHILDREN AND ADOLESCENTS REPRESENTS INDIVIDUALA AGED 2-19 YEARS EXCLUSIVE. Globulin 2.4 Calc [facility] ([facility] CHRONIC KIDNEY DISEASE STAGING PER NKF: MALE GFR INTERPRETATION: 20-49 YRS: [...] DESIRABLE: <130 MG/DL <110 MG/DL BORDERLINE-HIGH RISK: 130- 159 MG/DL 110-129 MG/DL HIGH RISK: >160 MG/DL >130 MG/DL *CHILDREN AND ADOLESCENTS REPRESENTS INDIVIDUALA AGED 2-19 YEARS EXCLUSIVE. Alp 87.7 U/L 40-129 [facility] CHRONIC KIDNEY DISEASE STAGING PER NKF: MALE GFR INTERPRETATION: 20-49 YRS: [...] DESIRABLE: <130 MG/DL <110 MG/DL BORDERLINE-HIGH RISK: 130- 159 MG/DL 110-129 MG/DL HIGH RISK: >160 MG/DL >130 MG/DL *CHILDREN AND ADOLESCENTS REPRESENTS INDIVIDUALA AGED 2-19 YEARS EXCLUSIVE. Ast (Sgot) 19 U/L 0-40 [facility] ([facility] CHRONIC KIDNEY DISEASE STAGING PER NKF: MALE GFR INTERPRETATION: 20-49 YRS: [...] DESIRABLE: <130 MG/DL <110 MG/DL BORDERLINE-HIGH RISK: 130- 159 MG/DL 110-129 MG/DL HIGH RISK: >160 MG/DL >130 MG/DL *CHILDREN AND ADOLESCENTS REPRESENTS INDIVIDUALA AGED 2-19 YEARS EXCLUSIVE. Alt (SGPT) 13 U/L 0-41 [facility] CHRONIC KIDNEY DISEASE STAGING PER NKF: MALE GFR INTERPRETATION: 20-49 YRS: [...] DESIRABLE: <130 MG/DL <110 MG/DL BORDERLINE-HIGH RISK: 130- 159 MG/DL 110-129 MG/DL HIGH RISK: >160 MG/DL >130 MG/DL *CHILDREN AND ADOLESCENTS REPRESENTS INDIVIDUALA AGED 2-19 YEARS EXCLUSIVE. Anion Gap 15 mmol/L [facility] ([facility] CHRONIC KIDNEY DISEASE STAGING PER NKF: MALE GFR INTERPRETATION: 20-49 YRS: [...] DESIRABLE: <130 MG/DL <110 MG/DL BORDERLINE-HIGH RISK: 130- 159 MG/DL 110-129 MG/DL HIGH RISK: >160 MG/DL >130 MG/DL *CHILDREN AND ADOLESCENTS REPRESENTS INDIVIDUALA AGED 2-19 YEARS EXCLUSIVE. Tbili 0.72 mg/dL 0.0-1.2 [facility] ([facility] CHRONIC KIDNEY DISEASE STAGING PER NKF: MALE GFR INTERPRETATION: 20-49 YRS: [...] DESIRABLE: <130 MG/DL <110 MG/DL BORDERLINE-HIGH RISK: 130- 159 MG/DL 110-129 MG/DL HIGH RISK: >160 MG/DL >130 MG/DL *CHILDREN AND ADOLESCENTS REPRESENTS INDIVIDUALA AGED 2-19 YEARS EXCLUSIVE. Osmolality-Calculated 266.0 Calc [facility] ([facility] CHRONIC KIDNEY DISEASE STAGING PER NKF: MALE GFR INTERPRETATION: 20-49 YRS: [...] DESIRABLE: <130 MG/DL <110 MG/DL BORDERLINE-HIGH RISK: 130- 159 MG/DL 110-129 MG/DL HIGH RISK: >160 MG/DL >130 MG/DL *CHILDREN AND ADOLESCENTS REPRESENTS INDIVIDUALA AGED 2-19 YEARS EXCLUSIVE. eGFR Non-Afr. [place] 100 # [facility] ([facility] CHRONIC KIDNEY DISEASE STAGING PER NKF: MALE GFR INTERPRETATION: 20-49 YRS: [...] DESIRABLE: <130 MG/DL <110 MG/DL BORDERLINE-HIGH RISK: 130- 159 MG/DL 110-129 MG/DL HIGH RISK: >160 MG/DL >130 MG/DL *CHILDREN AND ADOLESCENTS REPRESENTS INDIVIDUALA AGED 2-19 YEARS EXCLUSIVE. eGFR 116 # [facility] ( [facility] CHRONIC KIDNEY DISEASE STAGING PER NKF: MALE GFR INTERPRETATION: 20-49 YRS: [...] DESIRABLE: <130 MG/DL <110 MG/DL BORDERLINE-HIGH RISK: 130- 159 MG/DL 110-129 MG/DL HIGH RISK: >160 MG/DL >130 MG/DL *CHILDREN AND ADOLESCENTS REPRESENTS INDIVIDUALA AGED 2-19 YEARS EXCLUSIVE. ID Date Data Source [id number] 07/19/2020 03:04:00 PM EDT [facility] Name Value Range Interpretation Code Description Data Kasie rce(s) Supporting Document(s) Chlamydia,Urine Negative Normal (applies to non-numeric results) [facility] Test Performed By: [facility] [address] [place] [address] Director: Wes Schneider MD . GC Urine Negative Normal (applies to non-numeric resul ts) [facility] Test Performed By: [place] [address] Director: Wes Schneider MD . Methodology: Second generation nucleic acid amplification. ID Date Data Source [id number] 07/19/2020 12:04:00 PM EDT [facility] Value Range Interpretation Code Description Data Kasie rce(s) Supporting Document(s) Hepatitis A Ab,IgG result Normal (applies to no n-numeric results) [facility] Result indicates no past exposure or imm unity to hepatitis A infection. REFERENCE VALUE Unvaccinated: Negative Vaccinated: Positive Test Performed by: [place] [address] Improvement Specialist: Marlena Carter M.D. Ph.D.; CLIA# [id number] ID Date Data Source [id number] 07/15/2020 07:52:00 PM EDT [facility] Value Range Interpretation Code Description Data Kasie rce(s) Supporting Document(s) Hep C Ab-T Test Nonreactive Normal (applies to non-numeric results) [facility] Test Performed By: [facility] [address] [place] [address] Director: Wes Schneider MD ID Date Data Source [id number] 07/15/2020 07:52:00 PM EDT [facility] Value Range Interpretation Code Description Data Kasie rce(s) Supporting Document(s) Hep Bs Ag Result T-Test Nonreactive Normal (applies to non -numeric results) [facility] Test Performed By: [facility] [address] [place] [address] Director: Wes Schneider MD ID Date Data Source [id number] 07/15/2020 07:52:00 PM EDT [facility] Name Value Range Interpretation Code Description Data Kasie rce(s) Supporting Document(s) Syphilis Serology Nonreactive Normal (applies to non-numer ic results) [facility] Test Performed By: [facility] [address] [place] [address] Director: Wes Schneider MD ID Date Data Source [id number] 07/15/2020 07:03:00 PM EDT [facility] Name Value Range Interpretation Code Description Data Kasie rce(s) Supporting Document(s) CPK 76 U/L 39-308 Normal (applies to non-numeric resul ts) [facility] Test Performed By: [facility] [address] [place] [address] Director: Wes Schneider MD ID Date Data Source [id number] 07/19/2020 01:03:00 PM [facility] Value Range Interpretation Code Description Data Kasie rce(s) Supporting Document(s) Hepatitis A Ab,IgG result Normal (applies to no n-numeric results) [facility] Result indicates no past exposure or imm unity to hepatitis A infection. REFERENCE VALUE Unvaccinated: Negative Vaccinated: Positive Test Performed by: [place] [address] Improvement Specialist: Marlena Carter M.D. Ph.D.; CLIA# [id number] ID Date Data Source [id number] 07/15/2020 02:17:00 PM [facility] Value Range Interpretation Code Description Data Kasie rce(s) Supporting Document(s) Sodium 137 mmol/L 136-145 Normal (applies to non-numeric resul ts) [facility] Potassium 3.5-5.1 Below low normal [facility] Chloride 98 mmol/L 98-107 Normal (applies to non-numeric resul ts) [facility] Carbon Dioxide CO2 21-32 Above high normal [facility] Anion Gap 5.0-16.0 Normal (applies to non-numeric resul ts) [facility] BUN 5 mg/dL 7-18 Below low normal [facility] spital Creatinine,Serum 0.8-1.5 Below low normal [facility] GFR >60 Normal (applies to non-numeric results) [facility] Glucose Level 131 mg/dL 60-99 Above high normal [facility] Reference range is only applicable when patient is fasting Note the following drug interference: Sulfasalazine Sulfapyridine Can see falsely depressed Can see falsely elevated result with up to 17% results with up to 11% decrease in measurement increase in measurement Recommend patients be collected for this test prior to administration of either drug. Calcium 8.5-10.1 Normal (applies to non-numeric resul ts) [facility] Bilirubin,Total 0.1-1.9 Normal (applies to non-numeric results) [facility] SGOT(AST) 20 U/L 15-37 Normal (applies to non-numeric resul ts) [facility] Note the following drug interference: Sulfasalazine Sulfapyridine Can see falsely depressed Can see falsely elevated result with up to 10% results with up to 10% decrease in measurement increase in measurement Recommend patients be collected for this test prior to administration of either drug. SGPT(ALT) 26 U/L 12-78 Normal (applies to non-numeric resul ts) [facility] Note the following drug interference: Sulfasalazine Sulfapyridine Can see falsely depressed Can see falsely elevated result with up to 29% results with up to 10% decrease in measurement increase in measurement Recommend patients be collected for this test prior to administration of either drug. Alkaline Phosphatase 84 U/L 38-126 Normal (applies to non-num tyler results) [facility] can increase Alkaline Phosp le vels up to 2 times the normal adult value. Normal values for children and adolescents are 2 to 3 times the normal adult value. Total Protein 6.0-8.2 Normal (applies to non-numeric re sults) [facility] Albumin Level 3.4-5.0 Normal (applies to non-numeric re sults) [facility] ID Date Data Source [id number] 07/15/2020 02:17:00 PM T [facility] Value Range Interpretation Code Description Data Kasie rce(s) Supporting Document(s) Magnesium 1.8-2.4 Below low normal [facility] ID Date Data Source [id number] 07/15/2020 02:17:00 PM [facility] Value Range Interpretation Code Description Data Kasie rce(s) Supporting Document(s) Bilirubin,Direct 0.05-0.20 Normal (applies to non-numeric results) [facility] ID Date Data Source [id number] 07/15/2020 02:17:00 PM [facility] Value Range Interpretation Code Description Data Kasie rce(s) Supporting Document(s) Thyroid Stimulate Hormone TSH 0.358-3.74 Below low normal [facility] ID Date Data Source [id number] 07/15/2020 02:17:00 PM [facility] Value Range Interpretation Code Description Data Kasie rce(s) Supporting Document(s) Phosphorus 2.5-4.9 Normal (applies to non-numeric resul ts) [facility] ID Date Data Source [id number] 07/15/2020 08:50:00 PM [facility] Value Range Interpretation Code Description Data Kasie rce(s) Supporting Document(s) CPK result 76 U/L 39-308 Normal (applies to non-numeric resul ts) [facility] Test Performed By: [facility] [address] [place] [address] Director: Wes Schneider MD ID Date Data Source [id number] 07/15/2020 08:50:00 PM [facility] Value Range Interpretation Code Description Data Kasie rce(s) Supporting Document(s) Hep Bs Ag result T-Test Nonreactive Normal (applies to non -numeric results) [facility] Test Performed By: [facility] [address] [place] [address] Director: Wes Schneider MD ID Date Data Source [id number] 07/15/2020 08:50:00 PM EDT [facility] Name Value Range Interpretation Code Description Data Kasie rce(s) Supporting Document(s) Syphilis Serology result Nonreactive Normal (applies to non-numeric results) [facility] Test Performed By: [facility] [address] [place] [address] Director: Wes Schneider MD ID Date Data Source [id number] 07/15/2020 08:50:00 PM EDT [facility] Name Value Range Interpretation Code Description Data Kasie rce(s) Supporting Document(s) Hepatitis C Virus Ab result Nonreactive Norm al (applies to non-numeric results) [facility] Test Performed By: [facility] [address] [place] [address] Director: Wes Schneider MD ID Date Data Source [id number] 07/15/2020 02:26:00 PM EDT [facility] Name Value Range Interpretation Code Description Data Kasie rce(s) Supporting Document(s) Ethanol Less than 10.0 Above high normal [facility] ID Date Data Source [id number] 07/15/2020 02:18:00 PM EDT [facility] Name Value Range Interpretation Code Description Data Kasie rce(s) Supporting Document(s) White Blood Count 3.5-10.5 Normal (applies to non-numeri c results) [facility] Red Blood Count 4.30-5.70 Normal (applies to non-numeric results) [facility] Hemoglobin 13.5-17.5 Normal (applies to non-numeric resul ts) [facility] Hematocrit 38.8-50.0 Normal (applies to non-numeric resul ts) [facility] Mean Corpuscular Volume 81.2-95.1 Above high normal [facility] Mean Corpuscular Hgb 25.6-32.2 Above high normal [facility] Mean Corpuscular Hgb Conc 32.0-36.0 Normal (applies to no n-numeric results) [facility] Red Cell Distribution Width 11.8-15.6 Below low normal [facility] Platelet Count 244 x10 3/uL 150-450 Normal (applies to non-numeric results) [facility] Mean Platelet Volume 9.4-12.4 Below low normal [facility] Neutrophils% (Auto) 31.0-71.0 Above high normal [facility] Lymphocytes% (Auto) 20.0-55.0 Below low normal [facility] Monocytes% (Auto) 4.0-12.0 Normal (applies to non-numeri c results) [facility] Eosinophils% (Auto) 1.0-8.0 Below low normal [facility] Basophils% (Auto) 0.0-2.0 Normal (applies to non-numeri c results) [facility] Immature Granulocytes% (Auto) 0.0-2.0 Normal (alonso lies to non-numeric results) [facility] Neutrophils# (Auto) 1.50-6.20 Normal (applies to non-nume lubna results) [facility] Lymphocytes# (Auto) 1.20-4.00 Below low normal [facility] Monocytes# (Auto) 0.00-0.90 Normal (applies to non-numeri c results) [facility] Eosinophils# (Auto) 0.00-0.50 Normal (applies to non-nume lubna results) [facility] Basophils# (Auto) 0.00-0.20 Normal (applies to non-numeri c results) [facility] Immature Granulocytes# (Auto) 0.00-7.00 No rmal (applies to non-numeric results) [facility] ID Date Data Source [id number] 07/19/2020 03:15:00 PM EDT [facility] Name Value Range Interpretation Code Description Data Kasie rce(s) Supporting Document(s) Chlamydia,Urine result Negative Normal (applies to non-n umeric results) [facility] [address] [place], [place] [id number] Director: Wes Schneider MD . GC Urine result Negative Normal (applies to non-numeric results) [facility] Test Performed By: [facility] [address] [place] [address] Director: Wes Schneider MD . Methodology: Second generation nucleic acid amplification. ID Date Data Source [id number] 07/15/2020 02:19:00 PM EDT [facility] Collected By: Nurse's Aide Initials: Name Value Range Interpretation Code Description Data Kasie rce(s) Supporting Document(s) Color,Urine Colorl-Dk Y Normal (applies to non-numeric res ults) [facility] Clarity,Urine Clear Normal (applies to non-numeric re sults) [facility] Specific [place],Urine 1.005-1.030 Normal (applies to non- numeric results) [facility] pH,Urine 5.0-8.0 Normal (applies to non-numeric resul ts) [facility] Protein,Urine Negative Normal (applies to non-numeric re sults) [facility] Glucose,Urine Negative Normal (applies to non-numeric re sults) [facility] Ketones,Urine Negative Normal (applies to non-numeric re sults) [facility] Blood,Urine Negative Normal (applies to non-numeric resu lts) [facility] Bilirubin,Urine Negative Normal (applies to non-numeric results) [facility] Urobilinogen,Urine 0.2-1.0 Normal (applies to non-numer ic results) [facility] Leukocyte Esterase,Urine Negative Normal (applies to non -numeric results) [facility] Nitrite,Urine Negative Normal (applies to non-numeric re sults) [facility] ID Date Data Source [id number] 07/15/2020 02:07:00 PM EDT [facility] Name Value Range Interpretation Code Description Data Kasie rce(s) Supporting Document(s) UDS Phencyclidine Screen Negative Normal (applies to non -numeric results) [facility] UDS Benzodiazepines Screen Negative Normal (applies to n on-numeric results) [facility] UDS Cocaine Screen Negative Normal (applies to non-numer ic results) [facility] UDS Ampetamine Screen Negative Normal (applies to non-nu meric results) [facility] UDS Cannabinoids Screen Negative Normal (applies to non- numeric results) [facility] UDS Opiates Screen Negative Normal (applies to non-numer ic results) [facility] UDS Barbiturates Screen Negative Normal (applies to non- numeric results) [facility] UDS Tricyclic Screen Negative Normal (applies to non-num tyler results) [facility] Therapeutic Drug Ranges for Emergency Threshold Levels (ng/mL) PCP 25 Benzodiazepine 300 Cocaine 300 Amphetamines 1000 Cannabinoids 50 Opiates 300 Barbiturates 300 Tricyclic(TCA) 1000 Emergency toxicology analytes exceeding the therapeutic threshold levels are positive. Positive findings are unconfirmed. Positive drug levels may be confirmed at the request of the ordering provider. Results are to be used for medical treatment purposes only. ID Date Data Source [id number] 05/13/2020 09:05:00 AM EDT [facility] ([facility] Name Value Range Interpretation Code Description Data Kasie rce(s) Supporting Document(s) Thyrotropin [Units/volume] in Serum or Plasma 0.741 uIU/mL 0.450-4.50 0 [facility] ([facility] ID Date Data Source [id number] 05/13/2020 09:05:00 AM EDT [facility] ([facility] Name Value Range Interpretation Code Description Data Kasie rce(s) Supporting Document(s) Cholesterol [Mass/volume] in Serum or Plasma 169 mg/dL 100-199 [facility] ([facility] Cholesterol in VLDL [Mass/volume] in Serum or Plasma by calc ulation 10 mg/dL 5-40 [facility] ([facility] Triglyceride [Mass/volume] in Serum or Plasma 51 mg/dL 0-149 [facility] ([facility] Cholesterol in HDL [Mass/volume] in Serum or Plasma 110 mg/dL [facility] ([facility] Cholesterol in LDL [Mass/volume] in Serum or Plasma by calcu lation 49 mg/dL 0-99 [facility] Comment: Laboratory test result [facility] ( [facility] ID Date Data Source [id number] 05/13/2020 09:05:00 AM EDT [facility] ([facility] Name Value Range Interpretation Code Description Data Kasie rce(s) Supporting Document(s) Glucose [Mass/volume] in Serum or Plasma 91 mg/dL 65-99 [facility] ( [facility] Creatinine [Mass/volume] in Serum or Plasma 0.75 mg/dL 0.76 -1.27 Below low normal [facility] BUN 7 mg/dL 8-27 Below low normal [facility] ([facility] Sodium [Moles/volume] in Serum or Plasma 140 mmol/L 134-144 [facility] ([facility] eGFR If NonAfricn Am 98 mL/min/1.73 [facility] ([facility] Urea nitrogen/Creatinine [Mass Ratio] in Serum or Plasma 9 10-24 Below low normal [facility] ([facility] ) eGFR If Africn Am 113 mL/min/1.73 ME [facility] ([facility] Potassium [Moles/volume] in Serum or Plasma 4.9 mmol/L 3.5-5.2 [facility] ([facility] Carbon dioxide, total [Moles/volume] in Serum or Plasma 26 mmol/L 20 -29 [facility] Chloride [Moles/volume] in Serum or Plasma 97 mmol/L 96-106 [facility] Protein [Mass/volume] in Serum or Plasma 6.6 g/dL 6.0-8.5 [facility] ([facility] Calcium [Mass/volume] in Serum or Plasma 9.9 mg/dL 8.6-10.2 [facility] ([facility] Albumin [Mass/volume] in Serum or Plasma 4.5 g/dL 3.8-4.8 [facility] Globulin [Mass/volume] in Serum by calculation 2.1 g/dL 1.5-4.5 [facility] ([facility] Albumin/Globulin [Mass Ratio] in Serum or Plasma 2.1 1.2-2.2 [facility] ([facility] Bilirubin.total [Mass/volume] in Serum or Plasma 0.9 mg/dL 0.0-1.2 [facility] ([facility] Aspartate aminotransferase [Enzymatic activity/volume] in Serum or Plasma 26 IU/L 0-40 [facility] Alkaline phosphatase [Enzymatic activity/volume] in Serum or Plasma 63 IU/L 39-117 [facility] Alanine aminotransferase [Enzymatic activity/volume] in Seru m or Plasma 22 IU/L 0-44 [facility] ([facility] ID Date Data Source [id number] 05/13/2020 09:05:00 AM EDT [facility] ([facility] Name Value Range Interpretation Code Description Data Kasie rce(s) Supporting Document(s) Hemoglobin [Mass/volume] in Blood 13.6 g/dL 13.0-17.7 [facility] ([facility] Leukocytes [#/volume] in Blood by Automated count 10.7 x10E3/uL 3.4-1 0.8 [facility] ([facility] Erythrocytes [#/volume] in Blood by Automated count 3.89 x10E6/u L 4.14-5.80 Below low normal [facility] ([facility] ) Erythrocyte mean corpuscular hemoglobin [Entitic mass] by Automated count 35.0 pg 26.6-33.0 Above high normal [facility] ([facility] Erythrocyte mean corpuscular volume [Entitic volume] by Auto mated count 100 fL 79-97 Above high normal [facility] Hematocrit [Volume Fraction] of Blood by Automated count 38.9 % 3 7.5-51.0 [facility] ([facility] Platelets [#/volume] in Blood by Automated count 250 x10E3/uL 150-450 [facility] ([facility] Erythrocyte distribution width [Ratio] by Automated count 12.8 % 11.6-15.4 [facility] ([facility] Erythrocyte mean corpuscular hemoglobin concentration [Mass/volume] by Automated count 35.0 g/dL 31.5-35.7 [facility] Neutrophils 77 % [facility] Lymphs 13 % [facility] Monocytes/100 leukocytes in Blood by Automated count 7 % [facility] Basophils/100 leukocytes in Blood by Automated count 1 % [facility] Immature cells [#/volume] in Blood Laboratory test result [facility] ([facility] Eosinophils/100 leukocytes in Blood by Automated count 1 % [facility] Lymphocytes [#/volume] in Blood 1.4 x10E3/uL 0.7-3.1 [facility] ([facility] Neutrophils [#/volume] in Blood by Automated count 8.4 x10E3/uL 1.4-7.0 Above high normal [facility] ([facility] ) Monocytes [#/volume] in Blood 0.7 x10E3/uL 0.1-0.9 [facility] ([facility] Eosinophils [#/volume] in Blood by Automated count 0.1 x10E3/uL 0.0-0 .4 [facility] ([facility] Basophils [#/volume] in Blood by Automated count 0.1 x10E3/uL 0.0-0.2 [facility] ([facility] Nucleated erythrocytes/100 leukocytes [Ratio] in Blood by Automated count Laboratory test result [facility] Immature granulocytes [#/volume] in Blood by Automated count 0.1 x10E3/uL 0.0-0.1 [facility] Immature granulocytes/100 leukocytes in Blood by Automated count 1 % [facility] Morphology [Interpretation] in Blood Narrative Laboratory test result [facility] ([facility] ID Date Data Source [id number] 11/27/2019 08:39:00 AM EST [facility] ([facility] Name Value Range Interpretation Code Description Data Kasie rce(s) Supporting Document(s) Thyrotropin [Units/volume] in Serum or Plasma 0.706 ulU/mL 0.60-4.8 [facility] ([facility] ID Date Data Source [id number] 11/27/2019 08:39:00 AM EST [facility] ([facility] Name Value Range Interpretation Code Description Data Kasie rce(s) Supporting Document(s) Urate [Mass/volume] in Serum or Plasma 4.9 mg/dL 3.4-7.0 [facility] ([facility] CLASSIFICATION CHOLESTEROL FO R ADULTS CHILDREN/ADOLESCENTS* DESIRABLE: <200 MG/DL <170 MG/DL BORDER-LINE HIGH RISK: 200-239 MG/DL 170-199 MG/DL HIGH RISK: >240 MG/DL >200 MG/DL CLASS. FOR PRIMARY LDL CHOL PREVENTION: LDL CHOL-CHILD/ADOLESCENTS* DESIRABLE: <130 MG/DL <110 MG/DL BORDERLINE-HIGH RISK: 130-159 MG/DL 110-129 MG/DL HIGH RISK: >160 MG/DL >130 MG/DL *CHILDREN AND ADOLESCENTS REPRESENTS INDIVIDUALA AGED 2-19 YEARS EXCLUSIVE. CHRONIC KIDNEY DISEASE STAGING PER NKF: MALE GFR INTERPRETATION: 20-49 YRS: [...] mL/min Normal 80 and above >32 mL/min Normal ID Date Data Source [id number] 11/27/2019 08:39:00 AM EST [facility] ([facility] Name Value Range Interpretation Code Description Data Kasie rce(s) Supporting Document(s) Chol 157 mg/dL 0-200 [facility] ([facility] CLASSIFICATION CHOLESTEROL FO R ADULTS CHILDREN/ADOLESCENTS* DESIRABLE: <200 MG/DL <170 MG/DL BORDER-LINE HIGH RISK: 200-239 MG/DL 170-199 MG/DL HIGH RISK: >240 MG/DL >200 MG/DL CLASS. FOR PRIMARY LDL CHOL PREVENTION: LDL CHOL-CHILD/ADOLESCENTS* DESIRABLE: <130 MG/DL <110 MG/DL BORDERLINE-HIGH RISK: 130-159 MG/DL 110-129 MG/DL HIGH RISK: >160 MG/DL >130 MG/DL *CHILDREN AND ADOLESCENTS REPRESENTS INDIVIDUALA AGED 2-19 YEARS EXCLUSIVE. CHRONIC KIDNEY DISEASE STAGING PER NKF: MALE GFR INTERPRETATION: 20-49 YRS: [...] mL/min Normal 80 and above >32 mL/min Normal LDL_C 56 Calc 75-129 Below low normal [facility] ( [facility] CLASSIFICATION CHOLESTEROL FO R ADULTS CHILDREN/ADOLESCENTS* DESIRABLE: <200 MG/DL <170 MG/DL BORDER-LINE HIGH RISK: 200-239 MG/DL 170-199 MG/DL HIGH RISK: >240 MG/DL >200 MG/DL CLASS. FOR PRIMARY LDL CHOL PREVENTION: LDL CHOL-CHILD/ADOLESCENTS* DESIRABLE: <130 MG/DL <110 MG/DL BORDERLINE-HIGH RISK: 130-159 MG/DL 110-129 MG/DL HIGH RISK: >160 MG/DL >130 MG/DL *CHILDREN AND ADOLESCENTS REPRESENTS INDIVIDUALA AGED 2-19 YEARS EXCLUSIVE. CHRONIC KIDNEY DISEASE STAGING PER NKF: MALE GFR INTERPRETATION: 20-49 YRS: [...] mL/min Normal 80 and above >32 mL/min Normal Trig 33 mg/dL 35-200 Below low normal [facility] ( [facility] CLASSIFICATION CHOLESTEROL FO R ADULTS CHILDREN/ADOLESCENTS* DESIRABLE: <200 MG/DL <170 MG/DL BORDER-LINE HIGH RISK: 200-239 MG/DL 170-199 MG/DL HIGH RISK: >240 MG/DL >200 MG/DL CLASS. FOR PRIMARY LDL CHOL PREVENTION: LDL CHOL-CHILD/ADOLESCENTS* DESIRABLE: <130 MG/DL <110 MG/DL BORDERLINE-HIGH RISK: 130-159 MG/DL 110-129 MG/DL HIGH RISK: >160 MG/DL >130 MG/DL *CHILDREN AND ADOLESCENTS REPRESENTS INDIVIDUALA AGED 2-19 YEARS EXCLUSIVE. CHRONIC KIDNEY DISEASE STAGING PER NKF: MALE GFR INTERPRETATION: 20-49 YRS: [...] mL/min Normal 80 and above >32 mL/min Normal Prostate specific Ag [Mass/volume] in Serum or Plasma 94 mg/dL 35-55 Above high normal [facility] ([facility] CLASSIFICATION CHOLESTEROL FO R ADULTS CHILDREN/ADOLESCENTS* DESIRABLE: <200 MG/DL <170 MG/DL BORDER-LINE HIGH RISK: 200-239 MG/DL 170-199 MG/DL HIGH RISK: >240 MG/DL >200 MG/DL CLASS. FOR PRIMARY LDL CHOL PREVENTION: LDL CHOL-CHILD/ADOLESCENTS* DESIRABLE: <130 MG/DL <110 MG/DL BORDERLINE-HIGH RISK: 130-159 MG/DL 110-129 MG/DL HIGH RISK: >160 MG/DL >130 MG/DL *CHILDREN AND ADOLESCENTS REPRESENTS INDIVIDUALA AGED 2-19 YEARS EXCLUSIVE. CHRONIC KIDNEY DISEASE STAGING PER NKF: MALE GFR INTERPRETATION: 20-49 YRS: [...] mL/min Normal 80 and above >32 mL/min Normal Cho/HDL Ratio 1.7 CALC [facility] ([facility] CLASSIFICATION CHOLESTEROL FO R ADULTS CHILDREN/ADOLESCENTS* DESIRABLE: <200 MG/DL <170 MG/DL BORDER-LINE HIGH RISK: 200-239 MG/DL 170-199 MG/DL HIGH RISK: >240 MG/DL >200 MG/DL CLASS. FOR PRIMARY LDL CHOL PREVENTION: LDL CHOL-CHILD/ADOLESCENTS* DESIRABLE: <130 MG/DL <110 MG/DL BORDERLINE-HIGH RISK: 130-159 MG/DL 110-129 MG/DL HIGH RISK: >160 MG/DL >130 MG/DL *CHILDREN AND ADOLESCENTS REPRESENTS INDIVIDUALA AGED 2-19 YEARS EXCLUSIVE. CHRONIC KIDNEY DISEASE STAGING PER NKF: MALE GFR INTERPRETATION: 20-49 YRS: [...] mL/min Normal 80 and above >32 mL/min Normal ID Date Data Source [id number] 11/27/2019 08:39:00 AM EST [facility] ([facility] Name Value Range Interpretation Code Description Data Kasie rce(s) Supporting Document(s) Glu 85 mg/dL 70-110 [facility] CLASSIFICATION CHOLESTEROL FO R ADULTS CHILDREN/ADOLESCENTS* DESIRABLE: <200 MG/DL <170 MG/DL BORDER-LINE HIGH RISK: 200-239 MG/DL 170-199 MG/DL HIGH RISK: >240 MG/DL >200 MG/DL CLASS. FOR PRIMARY LDL CHOL PREVENTION: LDL CHOL-CHILD/ADOLESCENTS* DESIRABLE: <130 MG/DL <110 MG/DL BORDERLINE-HIGH RISK: 130-159 MG/DL 110-129 MG/DL HIGH RISK: >160 MG/DL >130 MG/DL *CHILDREN AND ADOLESCENTS REPRESENTS INDIVIDUALA AGED 2-19 YEARS EXCLUSIVE. CHRONIC KIDNEY DISEASE STAGING PER NKF: MALE GFR INTERPRETATION: 20-49 YRS: [...] mL/min Normal 80 and above >32 mL/min Normal BUN 6 mg/dL 8-23 Below low normal [facility] ([facility] CLASSIFICATION CHOLESTEROL FO R ADULTS CHILDREN/ADOLESCENTS* DESIRABLE: <200 MG/DL <170 MG/DL BORDER-LINE HIGH RISK: 200-239 MG/DL 170-199 MG/DL HIGH RISK: >240 MG/DL >200 MG/DL CLASS. FOR PRIMARY LDL CHOL PREVENTION: LDL CHOL-CHILD/ADOLESCENTS* DESIRABLE: <130 MG/DL <110 MG/DL BORDERLINE-HIGH RISK: 130-159 MG/DL 110-129 MG/DL HIGH RISK: >160 MG/DL >130 MG/DL *CHILDREN AND ADOLESCENTS REPRESENTS INDIVIDUALA AGED 2-19 YEARS EXCLUSIVE. CHRONIC KIDNEY DISEASE STAGING PER NKF: MALE GFR INTERPRETATION: 20-49 YRS: [...] mL/min Normal 80 and above >32 mL/min Normal BUN/Creatinine Ratio 10.1 CALC [facility] ([facility] CLASSIFICATION CHOLESTEROL FO R ADULTS CHILDREN/ADOLESCENTS* DESIRABLE: <200 MG/DL <170 MG/DL BORDER-LINE HIGH RISK: 200-239 MG/DL 170-199 MG/DL HIGH RISK: >240 MG/DL >200 MG/DL CLASS. FOR PRIMARY LDL CHOL PREVENTION: LDL CHOL-CHILD/ADOLESCENTS* DESIRABLE: <130 MG/DL <110 MG/DL BORDERLINE-HIGH RISK: 130-159 MG/DL 110-129 MG/DL HIGH RISK: >160 MG/DL >130 MG/DL *CHILDREN AND ADOLESCENTS REPRESENTS INDIVIDUALA AGED 2-19 YEARS EXCLUSIVE. CHRONIC KIDNEY DISEASE STAGING PER NKF: MALE GFR INTERPRETATION: 20-49 YRS: [...] mL/min Normal 80 and above >32 mL/min Normal Creat 0.6 mg/dL 0.7-1.2 Below low normal [facility] ( [facility] CLASSIFICATION CHOLESTEROL FO R ADULTS CHILDREN/ADOLESCENTS* DESIRABLE: <200 MG/DL <170 MG/DL BORDER-LINE HIGH RISK: 200-239 MG/DL 170-199 MG/DL HIGH RISK: >240 MG/DL >200 MG/DL CLASS. FOR PRIMARY LDL CHOL PREVENTION: LDL CHOL-CHILD/ADOLESCENTS* DESIRABLE: <130 MG/DL <110 MG/DL BORDERLINE-HIGH RISK: 130-159 MG/DL 110-129 MG/DL HIGH RISK: >160 MG/DL >130 MG/DL *CHILDREN AND ADOLESCENTS REPRESENTS INDIVIDUALA AGED 2-19 YEARS EXCLUSIVE. CHRONIC KIDNEY DISEASE STAGING PER NKF: MALE GFR INTERPRETATION: 20-49 YRS: [...] mL/min Normal 80 and above >32 mL/min Normal Na 137 mmol/L 136-145 [facility] ([facility] CLASSIFICATION CHOLESTEROL FO R ADULTS CHILDREN/ADOLESCENTS* DESIRABLE: <200 MG/DL <170 MG/DL BORDER-LINE HIGH RISK: 200-239 MG/DL 170-199 MG/DL HIGH RISK: >240 MG/DL >200 MG/DL CLASS. FOR PRIMARY LDL CHOL PREVENTION: LDL CHOL-CHILD/ADOLESCENTS* DESIRABLE: <130 MG/DL <110 MG/DL BORDERLINE-HIGH RISK: 130-159 MG/DL 110-129 MG/DL HIGH RISK: >160 MG/DL >130 MG/DL *CHILDREN AND ADOLESCENTS REPRESENTS INDIVIDUALA AGED 2-19 YEARS EXCLUSIVE. CHRONIC KIDNEY DISEASE STAGING PER NKF: MALE GFR INTERPRETATION: 20-49 YRS: [...] mL/min Normal 80 and above >32 mL/min Normal CL 96.4 mmol/L 98.0-107.0 Below low normal [facility] ([facility] CLASSIFICATION CHOLESTEROL FO R ADULTS CHILDREN/ADOLESCENTS* DESIRABLE: <200 MG/DL <170 MG/DL BORDER-LINE HIGH RISK: 200-239 MG/DL 170-199 MG/DL HIGH RISK: >240 MG/DL >200 MG/DL CLASS. FOR PRIMARY LDL CHOL PREVENTION: LDL CHOL-CHILD/ADOLESCENTS* DESIRABLE: <130 MG/DL <110 MG/DL BORDERLINE-HIGH RISK: 130-159 MG/DL 110-129 MG/DL HIGH RISK: >160 MG/DL >130 MG/DL *CHILDREN AND ADOLESCENTS REPRESENTS INDIVIDUALA AGED 2-19 YEARS EXCLUSIVE. CHRONIC KIDNEY DISEASE STAGING PER NKF: MALE GFR INTERPRETATION: 20-49 YRS: [...] mL/min Normal 80 and above >32 mL/min Normal K 4.7 mmol/L 3.5-5.1 [facility] CLASSIFICATION CHOLESTEROL FO R ADULTS CHILDREN/ADOLESCENTS* DESIRABLE: <200 MG/DL <170 MG/DL BORDER-LINE HIGH RISK: 200-239 MG/DL 170-199 MG/DL HIGH RISK: >240 MG/DL >200 MG/DL CLASS. FOR PRIMARY LDL CHOL PREVENTION: LDL CHOL-CHILD/ADOLESCENTS* DESIRABLE: <130 MG/DL <110 MG/DL BORDERLINE-HIGH RISK: 130-159 MG/DL 110-129 MG/DL HIGH RISK: >160 MG/DL >130 MG/DL *CHILDREN AND ADOLESCENTS REPRESENTS INDIVIDUALA AGED 2-19 YEARS EXCLUSIVE. CHRONIC KIDNEY DISEASE STAGING PER NKF: MALE GFR INTERPRETATION: 20-49 YRS: [...] mL/min Normal 80 and above >32 mL/min Normal Co2 26.2 mmol/L 22.0-29.0 [facility] ([facility] CLASSIFICATION CHOLESTEROL FO R ADULTS CHILDREN/ADOLESCENTS* DESIRABLE: <200 MG/DL <170 MG/DL BORDER-LINE HIGH RISK: 200-239 MG/DL 170-199 MG/DL HIGH RISK: >240 MG/DL >200 MG/DL CLASS. FOR PRIMARY LDL CHOL PREVENTION: LDL CHOL-CHILD/ADOLESCENTS* DESIRABLE: <130 MG/DL <110 MG/DL BORDERLINE-HIGH RISK: 130-159 MG/DL 110-129 MG/DL HIGH RISK: >160 MG/DL >130 MG/DL *CHILDREN AND ADOLESCENTS REPRESENTS INDIVIDUALA AGED 2-19 YEARS EXCLUSIVE. CHRONIC KIDNEY DISEASE STAGING PER NKF: MALE GFR INTERPRETATION: 20-49 YRS: [...] mL/min Normal 80 and above >32 mL/min Normal CA 9.5 mg/dL 8.6-10.2 [facility] ([facility] CLASSIFICATION CHOLESTEROL FO R ADULTS CHILDREN/ADOLESCENTS* DESIRABLE: <200 MG/DL <170 MG/DL BORDER-LINE HIGH RISK: 200-239 MG/DL 170-199 MG/DL HIGH RISK: >240 MG/DL >200 MG/DL CLASS. FOR PRIMARY LDL CHOL PREVENTION: LDL CHOL-CHILD/ADOLESCENTS* DESIRABLE: <130 MG/DL <110 MG/DL BORDERLINE-HIGH RISK: 130-159 MG/DL 110-129 MG/DL HIGH RISK: >160 MG/DL >130 MG/DL *CHILDREN AND ADOLESCENTS REPRESENTS INDIVIDUALA AGED 2-19 YEARS EXCLUSIVE. CHRONIC KIDNEY DISEASE STAGING PER NKF: MALE GFR INTERPRETATION: 20-49 YRS: [...] mL/min Normal 80 and above >32 mL/min Normal TP 6.7 g/dL 6.6-8.7 [facility] ([facility] CLASSIFICATION CHOLESTEROL FO R ADULTS CHILDREN/ADOLESCENTS* DESIRABLE: <200 MG/DL <170 MG/DL BORDER-LINE HIGH RISK: 200-239 MG/DL 170-199 MG/DL HIGH RISK: >240 MG/DL >200 MG/DL CLASS. FOR PRIMARY LDL CHOL PREVENTION: LDL CHOL-CHILD/ADOLESCENTS* DESIRABLE: <130 MG/DL <110 MG/DL BORDERLINE-HIGH RISK: 130-159 MG/DL 110-129 MG/DL HIGH RISK: >160 MG/DL >130 MG/DL *CHILDREN AND ADOLESCENTS REPRESENTS INDIVIDUALA AGED 2-19 YEARS EXCLUSIVE. CHRONIC KIDNEY DISEASE STAGING PER NKF: MALE GFR INTERPRETATION: 20-49 YRS: [...] mL/min Normal 80 and above >32 mL/min Normal Alb 4.1 g/dL 3.5-5.2 [facility] ([facility] CLASSIFICATION CHOLESTEROL FO R ADULTS CHILDREN/ADOLESCENTS* DESIRABLE: <200 MG/DL <170 MG/DL BORDER-LINE HIGH RISK: 200-239 MG/DL 170-199 MG/DL HIGH RISK: >240 MG/DL >200 MG/DL CLASS. FOR PRIMARY LDL CHOL PREVENTION: LDL CHOL-CHILD/ADOLESCENTS* DESIRABLE: <130 MG/DL <110 MG/DL BORDERLINE-HIGH RISK: 130-159 MG/DL 110-129 MG/DL HIGH RISK: >160 MG/DL >130 MG/DL *CHILDREN AND ADOLESCENTS REPRESENTS INDIVIDUALA AGED 2-19 YEARS EXCLUSIVE. CHRONIC KIDNEY DISEASE STAGING PER NKF: MALE GFR INTERPRETATION: 20-49 YRS: [...] mL/min Normal 80 and above >32 mL/min Normal A/G Ratio 1.6 CALC [facility] ([facility] CLASSIFICATION CHOLESTEROL FO R ADULTS CHILDREN/ADOLESCENTS* DESIRABLE: <200 MG/DL <170 MG/DL BORDER-LINE HIGH RISK: 200-239 MG/DL 170-199 MG/DL HIGH RISK: >240 MG/DL >200 MG/DL CLASS. FOR PRIMARY LDL CHOL PREVENTION: LDL CHOL-CHILD/ADOLESCENTS* DESIRABLE: <130 MG/DL <110 MG/DL BORDERLINE-HIGH RISK: 130-159 MG/DL 110-129 MG/DL HIGH RISK: >160 MG/DL >130 MG/DL *CHILDREN AND ADOLESCENTS REPRESENTS INDIVIDUALA AGED 2-19 YEARS EXCLUSIVE. CHRONIC KIDNEY DISEASE STAGING PER NKF: MALE GFR INTERPRETATION: 20-49 YRS: [...] mL/min Normal 80 and above >32 mL/min Normal Globulin 2.6 CALC [facility] ([facility] CLASSIFICATION CHOLESTEROL FO R ADULTS CHILDREN/ADOLESCENTS* DESIRABLE: <200 MG/DL <170 MG/DL BORDER-LINE HIGH RISK: 200-239 MG/DL 170-199 MG/DL HIGH RISK: >240 MG/DL >200 MG/DL CLASS. FOR PRIMARY LDL CHOL PREVENTION: LDL CHOL-CHILD/ADOLESCENTS* DESIRABLE: <130 MG/DL <110 MG/DL BORDERLINE-HIGH RISK: 130-159 MG/DL 110-129 MG/DL HIGH RISK: >160 MG/DL >130 MG/DL *CHILDREN AND ADOLESCENTS REPRESENTS INDIVIDUALA AGED 2-19 YEARS EXCLUSIVE. CHRONIC KIDNEY DISEASE STAGING PER NKF: MALE GFR INTERPRETATION: 20-49 YRS: [...] mL/min Normal 80 and above >32 mL/min Normal Alp 76.9 U/L 40-129 [facility] ([facility] CLASSIFICATION CHOLESTEROL FO R ADULTS CHILDREN/ADOLESCENTS* DESIRABLE: <200 MG/DL <170 MG/DL BORDER-LINE HIGH RISK: 200-239 MG/DL 170-199 MG/DL HIGH RISK: >240 MG/DL >200 MG/DL CLASS. FOR PRIMARY LDL CHOL PREVENTION: LDL CHOL-CHILD/ADOLESCENTS* DESIRABLE: <130 MG/DL <110 MG/DL BORDERLINE-HIGH RISK: 130-159 MG/DL 110-129 MG/DL HIGH RISK: >160 MG/DL >130 MG/DL *CHILDREN AND ADOLESCENTS REPRESENTS INDIVIDUALA AGED 2-19 YEARS EXCLUSIVE. CHRONIC KIDNEY DISEASE STAGING PER NKF: MALE GFR INTERPRETATION: 20-49 YRS: [...] mL/min Normal 80 and above >32 mL/min Normal Tbili 0.47 mg/dL 0.0-1.2 [facility] ([facility] CLASSIFICATION CHOLESTEROL FO R ADULTS CHILDREN/ADOLESCENTS* DESIRABLE: <200 MG/DL <170 MG/DL BORDER-LINE HIGH RISK: 200-239 MG/DL 170-199 MG/DL HIGH RISK: >240 MG/DL >200 MG/DL CLASS. FOR PRIMARY LDL CHOL PREVENTION: LDL CHOL-CHILD/ADOLESCENTS* DESIRABLE: <130 MG/DL <110 MG/DL BORDERLINE-HIGH RISK: 130-159 MG/DL 110-129 MG/DL HIGH RISK: >160 MG/DL >130 MG/DL *CHILDREN AND ADOLESCENTS REPRESENTS INDIVIDUALA AGED 2-19 YEARS EXCLUSIVE. CHRONIC KIDNEY DISEASE STAGING PER NKF: MALE GFR INTERPRETATION: 20-49 YRS: [...] mL/min Normal 80 and above >32 mL/min Normal Alt (SGPT) 17 U/L 0-41 [facility] ([facility] CLASSIFICATION CHOLESTEROL FO R ADULTS CHILDREN/ADOLESCENTS* DESIRABLE: <200 MG/DL <170 MG/DL BORDER-LINE HIGH RISK: 200-239 MG/DL 170-199 MG/DL HIGH RISK: >240 MG/DL >200 MG/DL CLASS. FOR PRIMARY LDL CHOL PREVENTION: LDL CHOL-CHILD/ADOLESCENTS* DESIRABLE: <130 MG/DL <110 MG/DL BORDERLINE-HIGH RISK: 130-159 MG/DL 110-129 MG/DL HIGH RISK: >160 MG/DL >130 MG/DL *CHILDREN AND ADOLESCENTS REPRESENTS INDIVIDUALA AGED 2-19 YEARS EXCLUSIVE. CHRONIC KIDNEY DISEASE STAGING PER NKF: MALE GFR INTERPRETATION: 20-49 YRS: [...] mL/min Normal 80 and above >32 mL/min Normal Ast (Sgot) 23 U/L 0-40 [facility] ([facility] CLASSIFICATION CHOLESTEROL FO R ADULTS CHILDREN/ADOLESCENTS* DESIRABLE: <200 MG/DL <170 MG/DL BORDER-LINE HIGH RISK: 200-239 MG/DL 170-199 MG/DL HIGH RISK: >240 MG/DL >200 MG/DL CLASS. FOR PRIMARY LDL CHOL PREVENTION: LDL CHOL-CHILD/ADOLESCENTS* DESIRABLE: <130 MG/DL <110 MG/DL BORDERLINE-HIGH RISK: 130-159 MG/DL 110-129 MG/DL HIGH RISK: >160 MG/DL >130 MG/DL *CHILDREN AND ADOLESCENTS REPRESENTS INDIVIDUALA AGED 2-19 YEARS EXCLUSIVE. CHRONIC KIDNEY DISEASE STAGING PER NKF: MALE GFR INTERPRETATION: 20-49 YRS: [...] mL/min Normal 80 and above >32 mL/min Normal Osmolality-Calculated 270.2 CALC MED ENT ([facility] CLASSIFICATION CHOLESTEROL FO R ADULTS CHILDREN/ADOLESCENTS* DESIRABLE: <200 MG/DL <170 MG/DL BORDER-LINE HIGH RISK: 200-239 MG/DL 170-199 MG/DL HIGH RISK: >240 MG/DL >200 MG/DL CLASS. FOR PRIMARY LDL CHOL PREVENTION: LDL CHOL-CHILD/ADOLESCENTS* DESIRABLE: <130 MG/DL <110 MG/DL BORDERLINE-HIGH RISK: 130-159 MG/DL 110-129 MG/DL HIGH RISK: >160 MG/DL >130 MG/DL *CHILDREN AND ADOLESCENTS REPRESENTS INDIVIDUALA AGED 2-19 YEARS EXCLUSIVE. CHRONIC KIDNEY DISEASE STAGING PER NKF: MALE GFR INTERPRETATION: 20-49 YRS: [...] mL/min Normal 80 and above >32 mL/min Normal eGFR 124 # [facility] ( [facility] CLASSIFICATION CHOLESTEROL FO R ADULTS CHILDREN/ADOLESCENTS* DESIRABLE: <200 MG/DL <170 MG/DL BORDER-LINE HIGH RISK: 200-239 MG/DL 170-199 MG/DL HIGH RISK: >240 MG/DL >200 MG/DL CLASS. FOR PRIMARY LDL CHOL PREVENTION: LDL CHOL-CHILD/ADOLESCENTS* DESIRABLE: <130 MG/DL <110 MG/DL BORDERLINE-HIGH RISK: 130-159 MG/DL 110-129 MG/DL HIGH RISK: >160 MG/DL >130 MG/DL *CHILDREN AND ADOLESCENTS REPRESENTS INDIVIDUALA AGED 2-19 YEARS EXCLUSIVE. CHRONIC KIDNEY DISEASE STAGING PER NKF: MALE GFR INTERPRETATION: 20-49 YRS: [...] mL/min Normal 80 and above >32 mL/min Normal Anion Gap 19 mmol/L [facility] ([facility] CLASSIFICATION CHOLESTEROL FO R ADULTS CHILDREN/ADOLESCENTS* DESIRABLE: <200 MG/DL <170 MG/DL BORDER-LINE HIGH RISK: 200-239 MG/DL 170-199 MG/DL HIGH RISK: >240 MG/DL >200 MG/DL CLASS. FOR PRIMARY LDL CHOL PREVENTION: LDL CHOL-CHILD/ADOLESCENTS* DESIRABLE: <130 MG/DL <110 MG/DL BORDERLINE-HIGH RISK: 130-159 MG/DL 110-129 MG/DL HIGH RISK: >160 MG/DL >130 MG/DL *CHILDREN AND ADOLESCENTS REPRESENTS INDIVIDUALA AGED 2-19 YEARS EXCLUSIVE. CHRONIC KIDNEY DISEASE STAGING PER NKF: MALE GFR INTERPRETATION: 20-49 YRS: [...] mL/min Normal 80 and above >32 mL/min Normal eGFR Non-Afr. [place]ian 107 # KARIN ([facility] CLASSIFICATION CHOLESTEROL FO R ADULTS CHILDREN/ADOLESCENTS* DESIRABLE: <200 MG/DL <170 MG/DL BORDER-LINE HIGH RISK: 200-239 MG/DL 170-199 MG/DL HIGH RISK: >240 MG/DL >200 MG/DL CLASS. FOR PRIMARY LDL CHOL PREVENTION: LDL CHOL-CHILD/ADOLESCENTS* DESIRABLE: <130 MG/DL <110 MG/DL BORDERLINE-HIGH RISK: 130-159 MG/DL 110-129 MG/DL HIGH RISK: >160 MG/DL >130 MG/DL *CHILDREN AND ADOLESCENTS REPRESENTS INDIVIDUALA AGED 2-19 YEARS EXCLUSIVE. CHRONIC KIDNEY DISEASE STAGING PER NKF: MALE GFR INTERPRETATION: 20-49 YRS: [...] mL/min Normal 80 and above >32 mL/min Normal Procedure Vital Signs ID Date Data Source UNK Name Value Range Interpretation Code Description Data Source(s) Oxygen saturation in Arterial blood by Pulse oximetry 98 % 98 % K[facility] ([facility] Body mass index (BMI) [Ratio] 21.8 kg/m2 21.8 k g/m2 [facility] ([facility] [place] body weight 172 [lb_av] 172 [lb_av] EDILMA T ([facility] Body weight 156.00 [lb_av] 156.00 [lb_av] MEDEN T ([facility] Body height 71 [in_i] 71 [in_i] MEDENT ([facility] 5'11" Respiratory rate 16 /min 16 /min MEDENT ( [facility] Heart rate 90 /min 90 /min [facility] ([facility] Body temperature 97.6 [degF] 97.6 [degF] [facility] ([facility] Diastolic blood pressure 82 mm[Hg] 82 mm[Hg] [facility] ([facility] Systolic blood pressure 114 mm[Hg] 114 mm[Hg] M EDENT ([facility] Body mass index (BMI) [Ratio] 21.8 kg/m2 21.8 k g/m2 [facility] ([facility]) Body height 71 [in_i] 71 [in_i] MED[facility] ([facility]) 5'11" Body weight 156.00 [lb_av] 156.00 [lb_av] MEDEN T ([facility], [facility]) Body temperature 98.2 [degF] 98.2 [degF] MED[facility] ([facility]) Oxygen saturation in Arterial blood by Pulse oximetry 99 % 99 % [facility] ([facility], [facility]) Respiratory rate 16 /min 16 /min MED[facility] ( [facility]) Heart rate 88 /min 88 /min MED[facility] ([facility]) Diastolic blood pressure 92 mm[Hg] 92 mm[Hg] [facility] ([facility]) Systolic blood pressure 168 mm[Hg] 168 mm[Hg] M EDENT ([facility], [facility]) Oxygen saturation in Arterial blood by Pulse oximetry 97 % 97 % MED[facility] ([facility] Body mass index (BMI) [Ratio] 21.3 kg/m2 21.3 k g/m2 [facility] ([facility] [place] body weight 172 [lb_av] 172 [lb_av] MEDEN T ([facility] Body weight 153.00 [lb_av] 153.00 [lb_av] MEDEN T ([facility] Body height 71 [in_i] 71 [in_i] MED[facility] ([facility] 5'11" Respiratory rate 16 /min 16 /min MEDENT ( [facility] Heart rate 108 /min 108 /min MED[facility] ([facility] Body temperature 98.1 [degF] 98.1 [degF] MED[facility] ([facility] Diastolic blood pressure 82 mm[Hg] 82 mm[Hg] [facility] ([facility] Systolic blood pressure 156 mm[Hg] 156 mm[Hg] M EDENT ([facility] Body mass index (BMI) [Ratio] 22.3 kg/m2 22.3 k g/m2 MED[facility] ([facility], [facility]) Body height 71 [in_i] 71 [in_i] MEDENT ([facility]) 5'11" Body weight 160.00 [lb_av] 160.00 [lb_av] MEDEN T ([facility], [facility]) Body temperature 97.8 [degF] 97.8 [degF] MED[facility] ([facility], [facility]) Oxygen saturation in Arterial blood by Pulse oximetry 99 % 99 % MED[facility] ([facility]) Respiratory rate 18 /min 18 /min MED[facility] ( [facility]) Heart rate 106 /min 106 /min MED[facility] ([facility], [facility]) Diastolic blood pressure 72 mm[Hg] 72 mm[Hg] MED[facility] ([facility], [facility]) Systolic blood pressure 126 mm[Hg] 126 mm[Hg] M EDENT ([facility], [facility]) Oxygen saturation in Arterial blood by Pulse oximetry 97 % 97 % MED[facility] ([facility] Body mass index (BMI) [Ratio] 33.5 kg/m2 33.5 k g/m2 MED[facility] ([facility] [place] body weight 172 [lb_av] 172 [lb_av] MEDEN T ([facility] Body weight 240.00 [lb_av] 240.00 [lb_av] MEDEN T ([facility] Body height 71 [in_i] 71 [in_i] MEDENT ([facility] 5'11" Respiratory rate 16 /min 16 /min MEDENT ( [facility] Heart rate 72 /min 72 /min MED[facility] ([facility] Body temperature 97.8 [degF] 97.8 [degF] MED[facility] ([facility] Diastolic blood pressure 78 mm[Hg] 78 mm[Hg] MED[facility] ([facility] Systolic blood pressure 146 mm[Hg] 146 mm[Hg] [facility] Body weight 73.937 kg 73.937 kg [facility] ([facility], ) Body mass index (BMI) [Ratio] 22.1 kg/m2 22.1 k g/m2 [facility] ([facility]) Body weight 163.00 [lb_av] 163.00 [lb_av] MEDEN T ([facility]) Body height 72 [in_i] 72 [in_i] [facility] ([facility]) 6'0" Diastolic blood pressure 80 mm[Hg] 80 mm[Hg] [facility] ([facility]) Systolic blood pressure 160 mm[Hg] 160 mm[Hg] [facility] ([facility]) Oxygen saturation in Arterial blood by Pulse oximetry 96 % 96 % MED[facility] ([facility] Body mass index (BMI) [Ratio] 23.1 kg/m2 23.1 k g/m2 MED[facility] ([facility] Body weight 166.00 [lb_av] 166.00 [lb_av] MEDEN T ([facility] Body height 71 [in_i] 71 [in_i] MEDENT ([facility] 5'11" Respiratory rate 14 /min 14 /min MED[facility] ( [facility] Heart rate 80 /min 80 /min MED[facility] ([facility] Body temperature 98.0 [degF] 98.0 [degF] MED[facility] ([facility] Diastolic blood pressure 80 mm[Hg] 80 mm[Hg] MED[facility] ([facility] Systolic blood pressure 150 mm[Hg] 150 mm[Hg] M EDENT ([facility] ID Date Data Source [id number] 07/19/2020 03:15:00 PM EDT [facility] spital Name Value Range Interpretation Code Description Data Source(s) Weight Measurement Method 1 1 [facility] Weight (Calculated Kilograms) 70.[address] [place] [address] [facility] pital Temperature Source 7 7 [facility] Temperature 97.5 97.5 [facility] spital Respiratory Effort 1 1 [facility] Respiratory Rate 16 16 [facility] Pulse Assessment Method 4 4 [facility] Pulse Rate [address] [facility] pital Height (Calculated Centimeters) 180.34 180. 34 [facility] 138/74 138/74 [facility] Body Mass Index (BMI) 21.[address] Weight Measurement Method 1 1 [facility] Weight (Calculated Kilograms) 70.58 70.58 [facility] Weight [address]89.[address] [facility] pital Temperature Source 7 7 [facility] Temperature 97.5 97.5 [facility] spital Respiratory Effort 1 1 [facility] Respiratory Rate 16 16 [facility] Pulse Assessment Method 4 4 [facility] Pulse Rate [address] [facility] pital Height (Calculated Centimeters) 180.34 180. 34 [facility] Height 71 71 [facility] Pressure 138/74 138/74 [facility] Body Mass Index (BMI) 21.7 217 [facility] Weight Measurement Method 1 1 [facility] Weight (Calculated Kilograms) 70.58 70.58 [facility] Weight 2489.[address] [facility] pital Temperature Source 7 7 [facility] Temperature 97.5 97.5 [facility] spital Respiratory Effort 1 1 [facility] Respiratory Rate 18 18 [facility] Pulse Assessment Method 4 4 [facility] Pulse Rate 95 95 [facility] Height (Calculated Centimeters) 180.34 180. 34 [facility] Height 71 71 [facility] Blood Pressure 151/84 151/84 [facility] Body Mass Index (BMI) 21.7 21.7 [facility]
--- OUTSIDE RECORDS SUMMARY | 2020-12-23 10:13 | CCD | Continuity of Care Document ---
Author Author Geronimo PERES M.D. Organization Unknown Address [address] [place], [place] [address] Phone [phone] Care Team Providers [employer] Supervisor Name Role Phone Jordy Joaquin M.D. AUTM [phone] Russell Stevens M.D. AUTM [phone] Aly Hernandez M.D. AUTM [phone] Problems Active Problems Provider Date Gout Nicole Gonzalez D.O. Onset: 05/22/2011 Benign essential hypertension Nicole Gonzalez D.O. Onset: 05/22/2011 Tobacco user Nicole Gonzalez D.O. Onset: 05/22/2011 Hyperlipidemia Ellie Jackson RPA-C Onset: 2012 Chronic obstructive lung disease lElie Jackson RPA-C Onset: 03/10/2013 Vitamin D deficiency [...] CPT Code Status Date Vaccine Lot # [id number] Given 09/25/2017 Influenza Virus Vaccine, Quadrivalent, Slit Virus, Im Use 3Y & Up [id number] Given 07/11/2016 Influenza Virus Vaccine, Quadrivalent, Slit Virus, Im Use 3Y & Up [id number] [id number] Given 08/04/2015 Influenza Virus Vac. Split Virus Individuals 3 Years And Above [id number] Given 08/20/2013 Influenza Virus Vac. Split Virus Individuals 3 Years And Above [id number] [id number] Given 07/30/2012 Pneumococcal Immunization [id number] Given 07/30/2012 Influenza Virus Vac. Split Virus Individuals 3 Years And Above [id number] Vital Signs Date Vital Result Comment 12/02/2020 9:55am BP Systolic 114 mmHg BP Diastolic 82 mmHg Body Temperature 97.6 F Heart Rate 90 /min Respiratory Rate 16 /min Height 71 inches 5'11" Weight 156.00 lb [place] Body Weight 172 lb BMI (Body Mass Index) 21.8 kg/m2 O2 % BldC Oximetry 98 % 07/11/2020 4:19pm BP Systolic 156 mmHg BP Diastolic 82 mmHg Body Temperature 98.1 F Heart Rate 108 /min Respiratory Rate 16 /min Height 71 inches 5'11" Weight 153.00 lb [place] Body Weight 172 lb BMI (Body Mass [...] eGFR 116 # Calc 2 eGFR Non-Afr. [place]ian 100 # Calc 3 Lipid Panel 12/02/2020 [...] Provider Dx Diagnosis Office Visit 12/02/2020 9:30a [facility] Mesfin Peres M. D. I10 Essential (primary) hypertension E78.5 Hyperlipidemia, unspecified J44.9 Chronic obstructive pulmonar y disease, unspecified M10.9 Gout, unspecified E03.9 Hypothyroidism, unspecified Office Visit 07/11/2020 4:00p [facility] Mesfin Peres M. D. F10.29 Alcohol dependence with unspecified alcohol-induced disorder Assessments Date Code Description Provider 12/02/2020 I10 Essential (primary) hypertension Mesfin Peres M.D. 12/02/2020 E78.5 Hyperlipidemia, unspecified [facility] Mesfin hankins M.D. 12/02/2020 J44.9 Chronic obstructive pulmonary di sease, unspecified Mesfin Peres M.D. 12/02/2020 M10.9 Gout, unspecified Luis Peres M.D. 12/02/2020 E03.9 [facility], [facility] 07/11/2020 F10.29 Alcohol dependence with unspecif ied alcohol-induced disorder Mesfin Peres M.D. Plan of Treatment Future Appointment(s):* 06/09/2021 8:30 am - Mesfin Peres M.D. at [facility] Functional Status Description No Information Available Mental Status Description No Information Available Referrals Description No Information Available
--- NOTE | 2020-12-23 11:52 | ROOR ---
Patient Name: Geronimo Chaves Procedure Date: 12/23/2020 11:20 AM Date of : 1955 Age: 65 Room: [facility] Gender: Male Note Status: Finalized Procedure: Colonoscopy Indications: High risk colon cancer surveillance: Personal history of colonic polyps, Incidental - Microscopic colitis Providers: Jordy GUTIERREZ MD Referring MD: JANETH DOS SANTOS MD Requesting Provider: Medicines: Monitored Anesthesia Care Complications: No immediate complications. Procedure: Pre-Anesthesia Assessment: - The heart rate, respiratory rate, oxygen saturations, blood pressure, adequacy of pulmonary ventilation, and response to care were monitored throughout the procedure. The Colonoscope was introduced through the anus and advanced to 10 cm into the ileum. The colonoscopy was performed without difficulty. The patient tolerated the procedure well. The quality of the bowel preparation was good. Findings: The perianal and digital rectal examinations were normal. Two sessile polyps were found in the ascending colon. The polyps were diminutive in size. These polyps were removed with a cold snare. Resection and retrieval were complete. Small Internal Hemorrhoids. The exam was otherwise without abnormality on direct and retroflexion views. The terminal ileum appeared normal. Biopsies for histology were taken with a cold forceps from the entire colon for evaluation of microscopic colitis. Impression: - Two diminutive polyps in the ascending colon, removed with a cold snare. Resected and retrieved. - Small Internal Hemorrhoids. - The colon and terminal ileum are otherwise normal on direct and retroflexion views. - Biopsies for histology were taken with a cold forceps from the entire colon for evaluation of microscopic colitis. Recommendation: - Repeat colonoscopy in 5 years for surveillance. Procedure Code(s): --- Professional --- 91183, Colonoscopy, flexible; with removal of tumor(s), polyp(s), or other lesion(s) by snare technique [id number], 59, Colonoscopy, flexible; with biopsy, single or multiple Diagnosis Code(s): --- Professional --- K63.5, Polyp of colon Z86.010, Personal history of colonic polyps CPT copyright 2019 [employer]. All rights reserved. The codes documented in this report are preliminary and upon director sanitation bureau review may be revised to meet current compliance requirements. Jordy Gutierrez MD Jordy GUTIERREZ MD 12/23/2020 11:52:17 AM Electronically signed by Jordy GUTIERREZ MD Number of Addenda: 0 Note Initiated On: 12/23/2020 11:20 AM Estimated Blood Loss: Estimated blood loss: none.
[2020-12-23 12:10] VITALS: BP 128/70
== END 2020-12-23 12:17 | disposition home or self-care (01) ==
LOC: M OPP 09:37
PROVIDERS: ATTEND Internal Medicine Gastroenterology
DX: Z12.11 Encounter for screening for malignant neoplasm of colon (principal); Z86.010 Personal history of colon polyps; K63.5 Polyp of colon; K52.832 Lymphocytic colitis; K44.9 Diaphragmatic hernia without obstruction or gangrene; I10 Essential (primary) hypertension; Z79.899 Other long term (current) drug therapy; F17.210 Nicotine dependence, cigarettes, uncomplicated

== ENCOUNTER 2021-04-17 18:24 | Emergency (ER) | payer OTHER ==
[~2021-04-17] VITALS: Ht 180.3 cm; Wt 69.1 kg
[~2021-04-17 18:24] MED LIST changes: -LIDOCAINE 2% 100MG/5ML SDV (FOR ANES.) As Ordered ONE; -NS 1,000 ML IV ONE; -propofoL 200 MG/20 ML VIAL As Ordered ONE
[2021-04-17 19:15] LABS: BASO # 0.1 10^3/uL (0.0-0.2); BASO % 0.8 % (0.0-1.0); EOS # 0.4 10^3/uL (0.0-0.5); EOS % 4.9 % (0.0-3.0); HEMATOCRIT 37.8 % (42.0-52.0); HEMOGLOBIN 13.4 g/dl (13.5-17.5); LYMPH # 1.5 10^3/uL (1.5-5.0); LYMPH % 21.6 % (24.0-44.0); MEAN CORPUSCULAR HGB CONC 35.4 g/dl (32.0-36.5); MEAN CORPUSCULAR VOLUME 95.9 fl (80.0-96.0); MONO # 0.8 10^3/uL (0.0-0.8); MONO % 10.9 % (2.0-8.0); NEUTROPHILS # 4.4 10^3/uL (1.5-8.5); NEUTROPHILS % 61.5 % (36.0-66.0); PLATELET COUNT, AUTOMATED 273 10^3/uL (150-450); RED BLOOD COUNT 3.94 10^6/uL (4.30-6.10); WHITE BLOOD COUNT 7.1 10^3/uL (4.0-10.0)
[2021-04-17] MEDS ORDERED: IPRATROPIUM 0.5MG/ALBUTEROL 2.5MG INH SOL UD 3ML (DUONEB) NEB ONE (19:30)
[2021-04-17 19:31] LABS: BLOOD UREA NITROGEN 5 MG/DL (7-18); CALCIUM LEVEL 8.4 MG/DL (8.8-10.2); CARBON DIOXIDE LEVEL 28 MEQ/L (21-32); CHLORIDE LEVEL 99 MEQ/L (98-107); CK-MB VALUE MASS 3.3 NG/ML (<3.6); CPK CREATINE PHOSPHOKINASE 153 U/L (39-308); CREATININE FOR GFR 0.83 MG/DL (0.70-1.30); ETHYL ALCOHOL (ETHANOL) 0.227 % (0.000-0.010); GLOMERULAR FILTRATION RATE > 60.0 (>49); GLUCOSE, FASTING 97 MG/DL (70-100); MB/CK RELATIVE INDEX 2.16 (< OR =4); NT-PRO BNP 78 PG/ML (<125); POTASSIUM SERUM 3.8 MEQ/L (3.5-5.1); SODIUM LEVEL 133 MEQ/L (136-145); TROPONIN I < 0.02 NG/ML (< 0.10)
--- NOTE | 2021-04-17 19:38 | REP ---
INDICATION: CHEST PAIN. COMPARISON: Comparison chest x-ray June 15, 2020. TECHNIQUE: Portable upright AP chest radiograph. Two views. FINDINGS: The lungs are well inflated and free of infiltrate.. EKG electrodes are seen. Heart is not enlarged. Pulmonary vasculature is not increased. The pleural angles are sharp. No acute bony abnormality is seen. IMPRESSION: No active disease. <Electronically signed by Esteban Montoya > 04/17/211933
--- NOTE | 2021-04-17 20:43 | ECGEPIP ---
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
[2021-04-17 22:52] LABS: CK-MB VALUE MASS 2.6 NG/ML (<3.6); CPK CREATINE PHOSPHOKINASE 130 U/L (39-308); TROPONIN I < 0.02 NG/ML (< 0.10)
[2021-04-17] MEDS ORDERED: PROAAER10 INH (23:22)
[2021-04-17 23:32] VITALS: BP 106/61
--- NOTE | 2021-04-18 07:57 | ECGEPIP ---
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
== END 2021-04-17 23:42 | disposition home or self-care (01) ==
LOC: M ED 18:24
DX: R07.89 Other chest pain (principal); J44.9 Chronic obstructive pulmonary disease, unspecified; I25.10 Atherosclerotic heart disease of native coronary artery without angina pectoris; Z79.899 Other long term (current) drug therapy; F17.210 Nicotine dependence, cigarettes, uncomplicated

== ENCOUNTER → 2021-08-15 | Outpatient (CLI) | payer OTHER ==
--- NOTE | 2021-08-15 15:18 | REP ---
INDICATION: LOCALIZED SWELLING, MASS, LUMP, RIGHT LOWER LIMB COMPARISON: None. TECHNIQUE: AP, lateral, bilateral oblique views. FINDINGS: Significant soft tissue swelling. No acute fracture or dislocation. Joint spaces and ankle mortise are intact. No subcutaneous emphysema or foreign body. IMPRESSION: Soft tissue swelling. No acute fracture or dislocation. <Electronically signed by Munir Maloney > 08/15/21 1412
--- NOTE | 2021-08-15 15:19 | REP ---
INDICATION: LOCALIZED SWELLING, MASS, LUMP, RIGHT LOWER LIMB COMPARISON: None. TECHNIQUE: AP, lateral, bilateral oblique views right foot. FINDINGS: Soft tissue swelling along the ankle and midfoot. The osseous structures demonstrate age-related changes without acute fracture or dislocation. No significant overt arthritic findings. No subcutaneous emphysema or foreign body.. IMPRESSION: Soft tissue swelling. <Electronically signed by Munir Maloney > 08/15/21 0552
[2021-08-15 16:01] LABS: BASO # 0.1 10^3/uL (0.0-0.2); BASO % 0.8 % (0.0-1.0); EOS # 0.2 10^3/uL (0.0-0.5); EOS % 2.7 % (0.0-3.0); HEMATOCRIT 30.5 % (42.0-52.0); HEMOGLOBIN 10.2 g/dl (13.5-17.5); LYMPH # 1.7 10^3/uL (1.5-5.0); LYMPH % 22.1 % (24.0-44.0); MEAN CORPUSCULAR HEMOGLOBIN 35.2 pg (27.0-33.0); MEAN CORPUSCULAR HGB CONC 33.4 g/dl (32.0-36.5); MEAN CORPUSCULAR VOLUME 105.2 fl (80.0-96.0); MONO % 13.1 % (2.0-8.0); NEUTROPHILS # 4.6 10^3/uL (1.5-8.5); PLATELET COUNT, AUTOMATED 294 10^3/uL (150-450); WHITE BLOOD COUNT 7.5 10^3/uL (4.0-10.0)
[2021-08-15 16:36] LABS: ALBUMIN 3.1 GM/DL (3.2-5.2); ALT/SGPT 26 U/L (12-78); BILIRUBIN,TOTAL 0.8 MG/DL (0.2-1.0); BLOOD UREA NITROGEN 8 MG/DL (7-18); CALCIUM LEVEL 8.4 MG/DL (8.8-10.2); CARBON DIOXIDE LEVEL 33 MEQ/L (21-32); CHLORIDE LEVEL 103 MEQ/L (98-107); CREATININE FOR GFR 0.77 MG/DL (0.70-1.30); GLOMERULAR FILTRATION RATE > 60.0 (>49); GLUCOSE, FASTING 92 MG/DL (70-100); POTASSIUM SERUM 3.8 MEQ/L (3.5-5.1); SODIUM LEVEL 139 MEQ/L (136-145); TOTAL PROTEIN 6.2 GM/DL (6.4-8.2)
[2021-08-15 16:58] LABS: ERYTHROCYTE SEDIMENTATION RATE 22 mm/hr (0-20)
[2021-08-16 08:22] LABS: FERRITIN 907 NG/ML (26-388); IRON (FE) 101 UG/DL (65-175); PERCENT SATURATION 39.9 % (19.7-50.0); TOTAL IRON BINDING CAPACITY 253 UG/DL (250-450)
== END ==
LOC: M WUC 14:12
PROVIDERS: ATTEND Physician Assistant
DX: R22.41 Localized swelling, mass and lump, right lower limb (principal)

== ENCOUNTER 2022-05-06 09:39 | Emergency (ER) | payer OTHER ==
[~2022-05-06] VITALS: Ht 182.9 cm; Wt 65.0 kg
[~2022-05-06 09:39] MED LIST changes: -LISI10TA15 PO; +LISI10TA24 PO
[2022-05-06 09:40] VITALS: BP 120/58
[2022-05-06] MEDS ORDERED: AMOX875T (09:50)
[2022-05-06] MEDS ORDERED: PRED20TA (09:50)
[2022-05-06] MEDS ORDERED: LIDOCAINE 5% (LIDODERM) PATCH TD ONE (13:15)
[2022-05-06] MEDS ORDERED: METH-1165 PO (13:16)
[2022-05-06] MEDS ORDERED: TRAM50TA2 PO (13:21)
[2022-05-07] MEDS ORDERED: **NOTE PATIENT COMMENT** MISC XX ONE (01:00)
== END 2022-05-06 13:38 | disposition home or self-care (01) ==
LOC: M ED 09:39
DX: S13.4XXA Sprain of ligaments of cervical spine, initial encounter (principal); X50.0XXA Overexertion from strenuous movement or load, initial encounter; M43.12 Spondylolisthesis, cervical region; I10 Essential (primary) hypertension; E78.5 Hyperlipidemia, unspecified; E03.9 Hypothyroidism, unspecified; J44.9 Chronic obstructive pulmonary disease, unspecified; J45.909 Unspecified asthma, uncomplicated; F17.200 Nicotine dependence, unspecified, uncomplicated; Z79.899 Other long term (current) drug therapy

== ENCOUNTER 2022-05-10 11:56 | Inpatient (IN) | payer MEDICARE, OTHER ==
[~2022-05-10] VITALS: Ht 182.9 cm; Wt 63.2 kg
[~2022-05-10 11:56] MED LIST changes: +AMOX875T PO; +METH-1165 PO; +PRED20TA; +TRAM50TA2 PO
[2022-05-10 15:42] LABS: BASO % 0.2 % (0.0-1.0); EOS # 0.1 10^3/uL (0.0-0.5); EOS % 1.1 % (0.0-3.0); HEMATOCRIT 27.1 % (42.0-52.0); HEMOGLOBIN 9.4 g/dl (13.5-17.5); LYMPH # 1.5 10^3/uL (1.5-5.0); LYMPH % 16.5 % (24.0-44.0); MEAN CORPUSCULAR HEMOGLOBIN 35.3 pg (27.0-33.0); MEAN CORPUSCULAR HGB CONC 34.7 g/dl (32.0-36.5); MEAN CORPUSCULAR VOLUME 101.9 fl (80.0-96.0); MONO # 1.1 10^3/uL (0.0-0.8); MONO % 11.7 % (2.0-8.0); NEUTROPHILS # 6.1 10^3/uL (1.5-8.5); NEUTROPHILS % 65.7 % (36.0-66.0); PLATELET COUNT, AUTOMATED 203 10^3/uL (150-450); RED BLOOD COUNT 2.66 10^6/uL (4.30-6.10); WHITE BLOOD COUNT 9.3 10^3/uL (4.0-10.0)
[2022-05-10 16:10] LABS: ALBUMIN 3.1 GM/DL (3.2-5.2); ALT/SGPT 146 U/L (12-78); BILIRUBIN,TOTAL 1.9 MG/DL (0.2-1.0); BLOOD UREA NITROGEN 22 MG/DL (7-18); CALCIUM LEVEL 9.1 MG/DL (8.8-10.2); CARBON DIOXIDE LEVEL 33 MEQ/L (21-32); CHLORIDE LEVEL 92 MEQ/L (98-107); CREATININE FOR GFR 0.89 MG/DL (0.70-1.30); GLOMERULAR FILTRATION RATE > 60.0 (>49); GLUCOSE, FASTING 90 MG/DL (70-100); POTASSIUM SERUM 4.3 MEQ/L (3.5-5.1); SODIUM LEVEL 130 MEQ/L (136-145); TOTAL PROTEIN 5.8 GM/DL (6.4-8.2)
[2022-05-10] MEDS ORDERED: ISOVUE-370 76% 100ML VIAL As Ordered ONE (16:13)
[2022-05-10] MEDS ORDERED: THIAMINE 200MG 2ML VIAL IV ONE (16:15)
[2022-05-10 16:41] LABS: ETHYL ALCOHOL (ETHANOL) 0.003 % (0.000-0.010)
[2022-05-10 17:13] LABS: CK-MB VALUE MASS 12.4 NG/ML (<3.6); MB/CK RELATIVE INDEX 1.57 (< OR =4)
[2022-05-10 17:43] LABS: APPEARANCE, URINE CLEAR (CLEAR); BACTERIA, URINE AUTO NEGATIVE (NEGATIVE); BILIRUBIN, URINE AUTO NEGATIVE (NEGATIVE); BLOOD, URINE BLOOD NEGATIVE (NEGATIVE); COLOR, URINE STRAW (YELLOW); GLUCOSE, URINE (UA) AUTO 1+ mg/dL (NEGATIVE); KETONE, URINE AUTO NEGATIVE (NEGATIVE); LEUKOCYTE ESTERASE, URINE AUTO NEGATIVE (NEGATIVE); NITRITE, URINE AUTO NEGATIVE (NEGATIVE); PROTEIN, URINE AUTO NEGATIVE (NEGATIVE); RBC, URINE AUTO 0 /HPF (0-3); SPECIFIC GRAVITY URINE AUTO 1.004 (1.002-1.035); SQUAMOUS EPITHELIAL CELL UR AU 0 /HPF (0-6); UROBILINOGEN, URINE AUTO 0.2 mg/dL (0.0-2.0); WBC, URINE AUTO 1 /HPF (0-3)
[2022-05-10 17:52] LABS: INR 0.96; PROTHROMBIN TIME 13.2 SECONDS (12.7-14.5)
[2022-05-10 17:53] LABS: PARTIAL THROMBOPLASTIN TIME 23.5 SECONDS (25.9-37.0)
[2022-05-10 17:55] LABS: AMPHETAMINES LEVEL URINE NEGATIVE (NEGATIVE); BARBITURATES URINE NEGATIVE (NEGATIVE); BENZODIAZEPINES URINE NEGATIVE (NEGATIVE); CANNABINOIDS URINE NEGATIVE (NEGATIVE); COCAINE METABOLITE URINE NEGATIVE (NEGATIVE); METHADONE URINE NEGATIVE (NEGATIVE); OPIATES URINE NEGATIVE (NEGATIVE); PHENCYCLIDINE URINE NEGATIVE (NEGATIVE)
[2022-05-10 18:21] LABS: MB/CK RELATIVE INDEX 1.61 (< OR =4)
[2022-05-10] MEDS ORDERED: ASPIRIN 81 MG CHEW TABLET PO ONE (20:05)
[2022-05-10] MEDS ORDERED: HEPARIN SOD (PORCINE) 5000UNITS/ML 1ML VIAL/SYRINGE IV ONE (20:05)
[2022-05-10] MEDS: HEPARIN DRIP 25,000 UNITS in IV 1 EA IV SCH (20:25)
[2022-05-10 23:27] LABS: RSV AMPLIFICATION NEGATIVE (NEGATIVE)
[2022-05-11] MEDS ORDERED: NS 1,000 ML IV SCH (00:25)
[2022-05-11 00:44] LABS: INR 1.04
[2022-05-11 00:45] LABS: PARTIAL THROMBOPLASTIN TIME 53.9 SECONDS (25.9-37.0)
[2022-05-11] MEDS ORDERED: LORazepam 2 MG TAB PO PRN (00:50)
[2022-05-11 00:55] LABS: CK-MB VALUE MASS 8.5 NG/ML (<3.6); MB/CK RELATIVE INDEX 1.84 (< OR =4)
[2022-05-11] MEDS ORDERED: LIDOCAINE 5% (LIDODERM) PATCH TD ONE (02:00)
[2022-05-11] MEDS: HEPARIN DRIP 25,000 UNITS in IV 1 EA IV SCH (02:23)
[2022-05-11] MEDS: THIAMINE 100 MG TAB PO SCH ×3 (02:41→21:48)
[2022-05-11 06:15] LABS: VENOUS BASE EXCESS 7.8 (-2.0-2.0); VENOUS HCO3 33.8 MEQ/L (23.0-27.0); VENOUS O2 SATURATION 48.4 % (60.0-80.0); VENOUS PARTIAL PRESSURE CO2 55.4 mmHg (38.0-50.0); VENOUS PARTIAL PRESSURE O2 24.9 mmHg (30.0-50.0); VENOUS PH 7.403 UNITS (7.330-7.430); VENOUS STANDARD HCO3 30.7 MEQ/L; VENOUS TOTAL CO2 35.5 MEQ/L (24.0-28.0)
[2022-05-11 06:16] LABS: BASO % 0.4 % (0.0-1.0); EOS # 0.1 10^3/uL (0.0-0.5); EOS % 0.8 % (0.0-3.0); HEMATOCRIT 25.7 % (42.0-52.0); HEMOGLOBIN 8.9 g/dl (13.5-17.5); LYMPH # 1.1 10^3/uL (1.5-5.0); LYMPH % 13.7 % (24.0-44.0); MEAN CORPUSCULAR HEMOGLOBIN 35.7 pg (27.0-33.0); MEAN CORPUSCULAR HGB CONC 34.6 g/dl (32.0-36.5); MEAN CORPUSCULAR VOLUME 103.2 fl (80.0-96.0); MONO # 0.8 10^3/uL (0.0-0.8); MONO % 9.9 % (2.0-8.0); NEUTROPHILS # 5.8 10^3/uL (1.5-8.5); NEUTROPHILS % 70.8 % (36.0-66.0); PLATELET COUNT, AUTOMATED 211 10^3/uL (150-450); RED BLOOD COUNT 2.49 10^6/uL (4.30-6.10); WHITE BLOOD COUNT 8.3 10^3/uL (4.0-10.0)
[2022-05-11 06:36] LABS: INR 0.98; PROTHROMBIN TIME 13.4 SECONDS (12.7-14.5)
[2022-05-11 06:37] LABS: PARTIAL THROMBOPLASTIN TIME 53.3 SECONDS (25.9-37.0)
[2022-05-11 06:47] LABS: CK-MB VALUE MASS 6.1 NG/ML (<3.6); MB/CK RELATIVE INDEX 1.78 (< OR =4)
[2022-05-11 07:12] LABS: CHLORIDE LEVEL 100 MEQ/L (98-107); POTASSIUM SERUM 3.8 MEQ/L (3.5-5.1)
[2022-05-11 07:22] LABS: FERRITIN 1889 NG/ML (26-388); IRON (FE) 76 UG/DL (65-175); LDH LACTATE DEHYDROGENASE 426 U/L (87-241); PERCENT SATURATION 37.4 % (19.7-50.0); TOTAL IRON BINDING CAPACITY 203 UG/DL (250-450)
[2022-05-11 07:26] LABS: ALBUMIN 2.3 GM/DL (3.2-5.2); ALT/SGPT 103 U/L (12-78); BILIRUBIN,TOTAL 1.3 MG/DL (0.2-1.0); BLOOD UREA NITROGEN 11 MG/DL (7-18); CARBON DIOXIDE LEVEL 32 MEQ/L (21-32); CHOLESTEROL LEVEL 137 MG/DL (<200); CHOLESTEROL RISK RATIO 1.427 (<5); CREATININE FOR GFR 0.62 MG/DL (0.70-1.30); GLOMERULAR FILTRATION RATE > 60.0 (>49); GLUCOSE, FASTING 99 MG/DL (70-100); HDL CHOLESTEROL 96 MG/DL (>40); LDL CHOLESTEROL 33 MG/DL (<100); MAGNESIUM LEVEL 1.4 MG/DL (1.8-2.4); NON-HDL-C 41 MG/DL; SODIUM LEVEL 138 MEQ/L (136-145); TOTAL PROTEIN 4.7 GM/DL (6.4-8.2); TRIGLYCERIDES LEVEL 42 MG/DL (<150)
[2022-05-11] MEDS: CYANOCOBALAMIN 500 MCG TAB PO SCH (09:00)
[2022-05-11 09:58] LABS: FOLATE > 24.0 NG/ML (>5.4)
[2022-05-11 09:59] LABS: VITAMIN B12 LEVEL 309 PG/ML (247-911)
[2022-05-11] MEDS: FOLIC ACID 1MG TAB PO SCH (10:00)
[2022-05-11] MEDS: MULTIVITAMINS/MINERALS THERAP 1 TAB PO SCH (10:00)
[2022-05-11 10:07] LABS: HEPATITIS B SURFACE ANTIGEN NEGATIVE (NEGATIVE)
[2022-05-11 10:34] LABS: HEPATITIS C VIRUS ABY INDEX 0.1 INDEX (<0.8)
[2022-05-11 10:35] LABS: HEPATITIS B CORE ANTIBODY IGM NEGATIVE (NEGATIVE)
[2022-05-11] MEDS ORDERED: CLOPIDOGREL 300 MG TAB (PLAVIX) PO STA (11:58)
[2022-05-11] MEDS ORDERED: **NOTE PATIENT COMMENT** MISC XX ONE (14:00)
[2022-05-11] MEDS: ATORVASTATIN 20 MG TAB PO SCH (14:13)
[2022-05-11] MEDS: ASPIRIN 81MG ENTERIC TABLET PO SCH (14:14)
[2022-05-11] MEDS: METOPROLOL TART 12.5 MG PER 1/2 TAB PO SCH (14:14)
[2022-05-11] MEDS ORDERED: MAGNESIUM OXIDE 400MG TAB (MAG-OX) PO ONE (15:45)
[2022-05-11 16:49] LABS: CK-MB VALUE MASS 3.2 NG/ML (<3.6); MB/CK RELATIVE INDEX 1.72 (< OR =4)
[2022-05-11] MEDS ORDERED: METH-1165 PO (18:10)
[2022-05-11] MEDS ORDERED: TRAM50TA2 PO (18:10)
[2022-05-11] MEDS ORDERED: HOME MED LIST COMPLETE! XX SCH (18:15)
[2022-05-11] MEDS: OYSTER SHELL CALCIUM 500 MG TAB PO SCH (19:51)
[2022-05-11 21:30] VITALS: BP 90/40
[2022-05-11] MEDS: HEPARIN SOD (PORCINE) 5000UNITS/ML 1ML VIAL/SYRINGE SQ SCH (21:48)
[2022-05-12] VITALS: BP 86/44
[2022-05-12 01:00] VITALS: BP 92/51
[2022-05-12 04:00] VITALS: BP 88/34
[2022-05-12] MEDS ORDERED: K-PHOS ORIGINAL (POT.ACID PHOSPHATE) 500MG TAB PO SCH (06:00)
[2022-05-12 06:25] LABS: HEMATOCRIT 23.5 % (42.0-52.0); MEAN CORPUSCULAR VOLUME 105.9 fl (80.0-96.0); PLATELET COUNT, AUTOMATED 195 10^3/uL (150-450); RED BLOOD COUNT 2.22 10^6/uL (4.30-6.10); WHITE BLOOD COUNT 7.9 10^3/uL (4.0-10.0)
[2022-05-12] MEDS: HEPARIN SOD (PORCINE) 5000UNITS/ML 1ML VIAL/SYRINGE SQ SCH (06:32)
[2022-05-12 06:48] LABS: BLOOD UREA NITROGEN 7 MG/DL (7-18); CALCIUM LEVEL 7.9 MG/DL (8.8-10.2); CARBON DIOXIDE LEVEL 28 MEQ/L (21-32); CHLORIDE LEVEL 105 MEQ/L (98-107); CREATININE FOR GFR 0.53 MG/DL (0.70-1.30); GLOMERULAR FILTRATION RATE > 60.0 (>49); GLUCOSE, FASTING 101 MG/DL (70-100); MAGNESIUM LEVEL 1.4 MG/DL (1.8-2.4); POTASSIUM SERUM 3.6 MEQ/L (3.5-5.1); SODIUM LEVEL 138 MEQ/L (136-145)
[2022-05-12] MEDS ORDERED: NS 1,000 ML IV ONE (07:00)
[2022-05-12 07:02] VITALS: BP 109/53
[2022-05-12 07:45] VITALS: BP 134/62
[2022-05-12] MEDS ORDERED: POTASSIUM CHLORIDE 10MEQ SR TABLET PO ONE (08:00)
[2022-05-12] MEDS ORDERED: MAGNESIUM OXIDE 400MG TAB (MAG-OX) PO ONE (08:00)
[2022-05-12 08:32] VITALS: BP 134/62
[2022-05-12] MEDS: METOPROLOL TART 12.5 MG PER 1/2 TAB PO SCH (08:32)
[2022-05-12] MEDS: THIAMINE 100 MG TAB PO SCH (08:32)
[2022-05-12] MEDS: ASPIRIN 81MG ENTERIC TABLET PO SCH (08:32)
[2022-05-12] MEDS: OYSTER SHELL CALCIUM 500 MG TAB PO SCH (08:33)
[2022-05-12] MEDS: FOLIC ACID 1MG TAB PO SCH (08:33)
[2022-05-12] MEDS: ATORVASTATIN 20 MG TAB PO SCH (08:33)
[2022-05-12] MEDS: CYANOCOBALAMIN 500 MCG TAB PO SCH (08:33)
[2022-05-12] MEDS: MULTIVITAMINS/MINERALS THERAP 1 TAB PO SCH (08:33)
[2022-05-12] MEDS ORDERED: CLOPIDOGREL 75 MG TAB PO SCH (09:00)
[2022-05-12] MEDS ORDERED: CALCI50TA PO (10:56)
[2022-05-12] MEDS ORDERED: METO1TAB87 PO (10:56)
[2022-05-12] MEDS ORDERED: VITMTA PO (10:56)
[2022-05-12] MEDS ORDERED: VITA500T40 PO (10:56)
[2022-05-12] MEDS ORDERED: THIA100TA PO (10:56)
[2022-05-12] MEDS ORDERED: ASPI-551 PO (10:56)
[2022-05-12] MEDS ORDERED: ATOR1TAB21 PO (10:56)
[2022-05-12] MEDS ORDERED: FOLI1TAB11 PO (10:56)
[2022-05-16 08:09] LABS: Creatinine(Crt),U 0.31 g/L (0.30-3.00)
== END 2022-05-12 13:00 | disposition home health service (06) | DRG 282 ==
LOC: M ED 11:56 → M ED INP 05-11 17:47 → ENRESERV 05-11 19:31 → M PCU 05-11 21:28
PROVIDERS: ADMIT Internal Medicine; ATTEND Internal Medicine
DX: I21.4 Non-ST elevation (NSTEMI) myocardial infarction (principal); R27.0 Ataxia, unspecified; J44.9 Chronic obstructive pulmonary disease, unspecified; I10 Essential (primary) hypertension; D53.9 Nutritional anemia, unspecified; S13.4XXA Sprain of ligaments of cervical spine, initial encounter; E78.5 Hyperlipidemia, unspecified; F17.210 Nicotine dependence, cigarettes, uncomplicated; R74.01 Elevation of levels of liver transaminase levels; E03.9 Hypothyroidism, unspecified; G62.1 Alcoholic polyneuropathy; M50.30 Other cervical disc degeneration, unspecified cervical region; X58.XXXA Exposure to other specified factors, initial encounter; Y92.9 Unspecified place or not applicable; Y99.8 Other external cause status; Y93.9 Activity, unspecified; Z98.41 Cataract extraction status, right eye; Z79.899 Other long term (current) drug therapy; Z98.42 Cataract extraction status, left eye; Z79.890 Hormone replacement therapy; Z72.89 Other problems related to lifestyle

== ENCOUNTER → 2022-06-01 | Outpatient (CLI) | payer MEDICARE, OTHER ==
[~2022-06-01] MED LIST changes: +ASPI-551 PO; +ATOR1TAB21 PO; +CALCI50TA PO; +FOLI1TAB11 PO; +METO1TAB87 PO; +THIA100TA PO; +VITA500T40 PO; +VITMTA PO
[2022-06-01 09:45] LABS: BASO # 0.1 10^3/uL (0.0-0.2); BASO % 0.9 % (0.0-1.0); EOS # 0.1 10^3/uL (0.0-0.5); EOS % 0.8 % (0.0-3.0); HEMOGLOBIN 11.8 g/dl (13.5-17.5); LYMPH # 0.9 10^3/uL (1.5-5.0); LYMPH % 11.8 % (24.0-44.0); MEAN CORPUSCULAR HEMOGLOBIN 37.2 pg (27.0-33.0); MEAN CORPUSCULAR HGB CONC 35.8 g/dl (32.0-36.5); MEAN CORPUSCULAR VOLUME 104.1 fl (80.0-96.0); MONO # 0.7 10^3/uL (0.0-0.8); MONO % 9.6 % (2.0-8.0); NEUTROPHILS # 5.7 10^3/uL (1.5-8.5); NEUTROPHILS % 76.2 % (36.0-66.0); PLATELET COUNT, AUTOMATED 309 10^3/uL (150-450); RED BLOOD COUNT 3.17 10^6/uL (4.30-6.10); WHITE BLOOD COUNT 7.5 10^3/uL (4.0-10.0)
[2022-06-01 10:19] LABS: BLOOD UREA NITROGEN 4 MG/DL (7-18); CALCIUM LEVEL 8.7 MG/DL (8.8-10.2); CARBON DIOXIDE LEVEL 31 MEQ/L (21-32); CHLORIDE LEVEL 94 MEQ/L (98-107); GLOMERULAR FILTRATION RATE > 60.0 (>49); GLUCOSE, FASTING 110 MG/DL (70-100); POTASSIUM SERUM 3.8 MEQ/L (3.5-5.1); SODIUM LEVEL 132 MEQ/L (136-145)
== END ==
LOC: M LAB 08:40
PROVIDERS: ATTEND Internal Medicine Cardiovascular Disease
DX: R07.9 Chest pain, unspecified (principal); R06.02 Shortness of breath; I10 Essential (primary) hypertension

== ENCOUNTER → 2022-09-06 | Outpatient (CLI) | payer MEDICARE, OTHER ==
[2022-09-06 13:14] LABS: ALBUMIN 3.4 GM/DL (3.2-5.2); ALT/SGPT 31 U/L (12-78); BILIRUBIN,DIRECT 0.2 MG/DL (0.0-0.2); BILIRUBIN,TOTAL 0.6 MG/DL (0.2-1.0); IRON (FE) 104 UG/DL (65-175); TOTAL IRON BINDING CAPACITY 281 UG/DL (250-450); TOTAL PROTEIN 6.8 GM/DL (6.4-8.2)
[2022-09-06 13:52] LABS: HEPATITIS B SURFACE ANTIGEN NEGATIVE (NEGATIVE)
[2022-09-06 14:19] LABS: HEPATITIS C VIRUS ABY INDEX 0.2 INDEX (<0.8)
[2022-09-06 14:20] LABS: HEPATITIS B CORE ANTIBODY IGM NEGATIVE (NEGATIVE)
== END ==
LOC: M LAB 11:01
PROVIDERS: ATTEND Internal Medicine Gastroenterology
DX: R19.7 Diarrhea, unspecified (principal); D50.9 Iron deficiency anemia, unspecified

== ENCOUNTER → 2022-12-27 | Outpatient (CLI) | payer MEDICARE, OTHER ==
[2022-12-27 10:20] LABS: HEMATOCRIT 41.1 % (42.0-52.0); HEMOGLOBIN 13.8 g/dl (13.5-17.5); MEAN CORPUSCULAR HEMOGLOBIN 33.7 pg (27.0-33.0); MEAN CORPUSCULAR HGB CONC 33.6 g/dl (32.0-36.5); MEAN CORPUSCULAR VOLUME 100.5 fl (80.0-96.0); PLATELET COUNT, AUTOMATED 249 10^3/uL (150-450); RED BLOOD COUNT 4.09 10^6/uL (4.30-6.10); WHITE BLOOD COUNT 12.1 10^3/uL (4.0-10.0)
[2022-12-27 10:48] LABS: URIC ACID 4.8 MG/DL (3.7-9.2)
[2022-12-27 10:52] LABS: ALKALINE PHOSPHATASE 72 U/L (46-116); ALT/SGPT 34 U/L (7.0-40); AST/SGOT 32 U/L (<34); BLOOD UREA NITROGEN 10 MG/DL (9-23); CALCIUM LEVEL 9.3 MG/DL (8.3-10.6); CARBON DIOXIDE LEVEL 34 MMOL/L (20-31); CHLORIDE LEVEL 95 MMOL/L (98-107); CHOLESTEROL LEVEL 171 MG/DL (<200); CREATININE FOR GFR 0.74 MG/DL (0.70-1.30); GLOMERULAR FILTRATION RATE > 60.0 (>49); GLUCOSE, FASTING 83 MG/DL (74-106); HDL CHOLESTEROL 131.3 MG/DL (>40); LDL CHOLESTEROL 33.1 MG/DL (<100); NON-HDL-C 40 MG/DL; POTASSIUM SERUM 4.1 MMOL/L (3.5-5.1); SODIUM LEVEL 132 MMOL/L (136-145); TOTAL PROTEIN 7.1 G/DL (5.7-8.2); TRIGLYCERIDES LEVEL 33 MG/DL (<150)
[2022-12-27 10:53] LABS: THYROID STIMULATING HORMONE 1.667 uIU/ML (0.55-4.78)
== END ==
LOC: M WUC 08:11
PROVIDERS: ATTEND Internal Medicine
DX: I50.9 Heart failure, unspecified (principal); E78.5 Hyperlipidemia, unspecified; E03.9 Hypothyroidism, unspecified; M10.9 Gout, unspecified; J44.9 Chronic obstructive pulmonary disease, unspecified

== ENCOUNTER 2023-02-19 09:45 | Emergency (ER) | payer MEDICARE, OTHER ==
[~2023-02-19] VITALS: Ht 180.3 cm; Wt 75.5 kg
[2023-02-19] MEDS ORDERED: ACETAMINOPHEN 500 MG TAB PO ONE (10:00)
[2023-02-19] MEDS ORDERED: LIDOCAINE 5% (LIDODERM) PATCH TD ONE (10:00)
[2023-02-19] MEDS ORDERED: ASPIRIN 81MG CHEW TABLET PO ONE (10:00)
[2023-02-19 10:29] LABS: BASO % 0.5 % (0.0-1.0); EOS % 0.3 % (0.0-3.0); HEMOGLOBIN 14.9 g/dl (13.5-17.5); LYMPH # 1.2 10^3/uL (1.5-5.0); MEAN CORPUSCULAR HEMOGLOBIN 33.7 pg (27.0-33.0); MEAN CORPUSCULAR HGB CONC 36.3 g/dl (32.0-36.5); MEAN CORPUSCULAR VOLUME 92.8 fl (80.0-96.0); MONO # 0.8 10^3/uL (0.0-0.8); MONO % 10.9 % (2.0-8.0); NEUTROPHILS # 5.4 10^3/uL (1.5-8.5); NEUTROPHILS % 71.8 % (36.0-66.0); PLATELET COUNT, AUTOMATED 171 10^3/uL (150-450); RED BLOOD COUNT 4.42 10^6/uL (4.30-6.10); WHITE BLOOD COUNT 7.5 10^3/uL (4.0-10.0)
[2023-02-19 10:47] LABS: LIPASE 53 U/L (12-53)
[2023-02-19 10:49] LABS: ALBUMIN 3.2 G/DL (3.2-5.2); ALKALINE PHOSPHATASE 164 U/L (46-116); ALT/SGPT 127 U/L (7.0-40); AST/SGOT 268 U/L (<34); BILIRUBIN,DIRECT 1.1 MG/DL (<0.4); BILIRUBIN,TOTAL 1.9 MG/DL (0.3-1.2); BLOOD UREA NITROGEN 20 MG/DL (9-23); CALCIUM LEVEL 8.9 MG/DL (8.3-10.6); CARBON DIOXIDE LEVEL 30 MMOL/L (20-31); CHLORIDE LEVEL 92 MMOL/L (98-107); CK-MB VALUE MASS 2.3 NG/ML (<3.6); CPK CREATINE PHOSPHOKINASE 137 U/L (46-171); CREATININE FOR GFR 0.92 MG/DL (0.70-1.30); GLOMERULAR FILTRATION RATE > 60.0 (>49); GLUCOSE, FASTING 109 MG/DL (74-106); MB/CK RELATIVE INDEX 1.67 (< OR =4); POTASSIUM SERUM 3.5 MMOL/L (3.5-5.1); SODIUM LEVEL 127 MMOL/L (136-145); TOTAL PROTEIN 6.3 G/DL (5.7-8.2)
[2023-02-19 11:48] LABS: CK-MB VALUE MASS 2.1 NG/ML (<3.6)
[2023-02-19 11:51] LABS: MB/CK RELATIVE INDEX 1.68 (< OR =4)
[2023-02-19 14:00] VITALS: BP 147/79
== END 2023-02-19 14:38 | disposition home or self-care (01) ==
LOC: EDBD 09:45 → M ED 09:45
DX: M54.2 Cervicalgia (principal); E87.1 Hypo-osmolality and hyponatremia; I25.10 Atherosclerotic heart disease of native coronary artery without angina pectoris; I25.2 Old myocardial infarction; E03.9 Hypothyroidism, unspecified; J44.9 Chronic obstructive pulmonary disease, unspecified; Z95.5 Presence of coronary angioplasty implant and graft; F17.200 Nicotine dependence, unspecified, uncomplicated; Z79.890 Hormone replacement therapy; Z79.899 Other long term (current) drug therapy; Z79.82 Long term (current) use of aspirin

== ENCOUNTER → 2023-05-21 | Outpatient (CLI) | payer MEDICARE, OTHER ==
[2023-05-21 12:30] LABS: HEMATOCRIT 36.1 % (42.0-52.0); HEMOGLOBIN 11.7 g/dl (13.5-17.5); MEAN CORPUSCULAR HEMOGLOBIN 36.2 pg (27.0-33.0); MEAN CORPUSCULAR HGB CONC 32.4 g/dl (32.0-36.5); MEAN CORPUSCULAR VOLUME 111.8 fl (80.0-96.0); PLATELET COUNT, AUTOMATED 221 10^3/uL (150-450); RED BLOOD COUNT 3.23 10^6/uL (4.30-6.10); WHITE BLOOD COUNT 7.4 10^3/uL (4.0-10.0)
[2023-05-21 12:58] LABS: ALBUMIN 2.5 G/DL (3.2-5.2); ALKALINE PHOSPHATASE 120 U/L (46-116); ALT/SGPT 55 U/L (7.0-40); AST/SGOT 60 U/L (<34); BILIRUBIN,TOTAL 2.2 MG/DL (0.3-1.2); BLOOD UREA NITROGEN < 5 MG/DL (9-23); CALCIUM LEVEL 8.6 MG/DL (8.3-10.6); CARBON DIOXIDE LEVEL 29 MMOL/L (20-31); CHLORIDE LEVEL 103 MMOL/L (98-107); GLOMERULAR FILTRATION RATE > 60.0 (>49); GLUCOSE, FASTING 143 MG/DL (74-106); MAGNESIUM LEVEL 1.4 MG/DL (1.8-2.4); POTASSIUM SERUM 3.7 MMOL/L (3.5-5.1); SODIUM LEVEL 139 MMOL/L (136-145); TOTAL PROTEIN 5.9 G/DL (5.7-8.2)
[2023-05-21 13:55] LABS: APPEARANCE, URINE HAZY (CLEAR); BACTERIA, URINE AUTO NEGATIVE (NEGATIVE); BILIRUBIN, URINE AUTO NEGATIVE (NEGATIVE); BLOOD, URINE BLOOD NEGATIVE (NEGATIVE); CALCIUM OXALATE CRYSTALS LARGE; COLOR, URINE AMBER (YELLOW); GLUCOSE, URINE (UA) AUTO NEGATIVE (NEGATIVE); KETONE, URINE AUTO TRACE mg/dL (NEGATIVE); LEUKOCYTE ESTERASE, URINE AUTO NEGATIVE (NEGATIVE); MUCUS, URINE SMALL (NEGATIVE); NITRITE, URINE AUTO NEGATIVE (NEGATIVE); PROTEIN, URINE AUTO NEGATIVE (NEGATIVE); RBC, URINE AUTO 2 /HPF (0-3); SPECIFIC GRAVITY URINE AUTO 1.017 (1.002-1.035); SQUAMOUS EPITHELIAL CELL UR AU 0 /HPF (0-6); UROBILINOGEN, URINE AUTO 0.2 mg/dL (0.0-2.0); WBC, URINE AUTO 3 /HPF (0-3)
== END ==
LOC: M WUC 10:07
PROVIDERS: ATTEND Internal Medicine
DX: I50.9 Heart failure, unspecified (principal); R60.9 Edema, unspecified

== ENCOUNTER → 2023-05-29 | Outpatient (CLI) | payer MEDICARE, OTHER ==
[2023-05-29 17:29] LABS: BLOOD UREA NITROGEN 6 MG/DL (9-23); CALCIUM LEVEL 9.2 MG/DL (8.3-10.6); CARBON DIOXIDE LEVEL 32 MMOL/L (20-31); CHLORIDE LEVEL 102 MMOL/L (98-107); CREATININE FOR GFR 0.65 MG/DL (0.70-1.30); GLOMERULAR FILTRATION RATE > 60.0 (>49); GLUCOSE, FASTING 117 MG/DL (74-106); POTASSIUM SERUM 4.1 MMOL/L (3.5-5.1); SODIUM LEVEL 139 MMOL/L (136-145)
== END ==
LOC: M WUC 10:59
PROVIDERS: ATTEND Internal Medicine
DX: I50.9 Heart failure, unspecified (principal)

== ENCOUNTER → 2023-06-20 | Outpatient (CLI) | payer MEDICARE, OTHER ==
[~2023-06-20] MED LIST changes: +ISOVUE-370 76% 100ML VIAL As Ordered ONE
== END ==
LOC: M RAD 12:40
PROVIDERS: ATTEND Internal Medicine
DX: R31.9 Hematuria, unspecified (principal)
CPT/HCPCS: 74178; Q9967

== ENCOUNTER → 2023-06-28 | Outpatient (REF) | payer MEDICARE, OTHER ==
[~2023-06-28] MED LIST changes: -ISOVUE-370 76% 100ML VIAL As Ordered ONE
[2023-06-28 18:25] LABS: HEMATOCRIT 43.5 % (42.0-52.0); HEMOGLOBIN 13.8 g/dl (13.5-17.5); MEAN CORPUSCULAR HEMOGLOBIN 34.3 pg (27.0-33.0); MEAN CORPUSCULAR HGB CONC 31.7 g/dl (32.0-36.5); MEAN CORPUSCULAR VOLUME 108.2 fl (80.0-96.0); PLATELET COUNT, AUTOMATED 249 10^3/uL (150-450); RED BLOOD COUNT 4.02 10^6/uL (4.30-6.10); WHITE BLOOD COUNT 9.7 10^3/uL (4.0-10.0)
[2023-06-28 18:51] LABS: ALBUMIN 3.4 G/DL (3.2-5.2); ALKALINE PHOSPHATASE 68 U/L (46-116); ALT/SGPT 16 U/L (7.0-40); AST/SGOT 17 U/L (<34); BILIRUBIN,TOTAL 0.6 MG/DL (0.3-1.2); BLOOD UREA NITROGEN 7 MG/DL (9-23); CALCIUM LEVEL 9.1 MG/DL (8.3-10.6); CARBON DIOXIDE LEVEL 30 MMOL/L (20-31); CHLORIDE LEVEL 103 MMOL/L (98-107); CHOLESTEROL LEVEL 222 MG/DL (<200); CHOLESTEROL RISK RATIO 3.84 (<5); CREATININE FOR GFR 0.69 MG/DL (0.70-1.30); GLOMERULAR FILTRATION RATE > 60.0 (>49); GLUCOSE, FASTING 101 MG/DL (74-106); HDL CHOLESTEROL 57.7 MG/DL (>40); LDL CHOLESTEROL 150.5 MG/DL (<100); MAGNESIUM LEVEL 1.4 MG/DL (1.8-2.4); NON-HDL-C 164.3 MG/DL; POTASSIUM SERUM 4.2 MMOL/L (3.5-5.1); SODIUM LEVEL 139 MMOL/L (136-145); THYROID STIMULATING HORMONE 2.557 uIU/ML (0.55-4.78); TOTAL PROTEIN 6.5 G/DL (5.7-8.2); TRIGLYCERIDES LEVEL 69 MG/DL (<150)
== END ==
LOC: M WUC 16:15
PROVIDERS: ATTEND Internal Medicine
DX: E78.5 Hyperlipidemia, unspecified (principal); I10 Essential (primary) hypertension; E03.9 Hypothyroidism, unspecified; I25.10 Atherosclerotic heart disease of native coronary artery without angina pectoris

== ENCOUNTER → 2023-07-19 | Outpatient (REF) | payer MEDICARE, OTHER ==
[2023-07-19 14:25] LABS: APPEARANCE, URINE CLEAR (CLEAR); BACTERIA, URINE AUTO NEGATIVE (NEGATIVE); BILIRUBIN, URINE AUTO NEGATIVE (NEGATIVE); BLOOD, URINE BLOOD NEGATIVE (NEGATIVE); COLOR, URINE YELLOW (YELLOW); GLUCOSE, URINE (UA) AUTO NEGATIVE (NEGATIVE); KETONE, URINE AUTO NEGATIVE (NEGATIVE); LEUKOCYTE ESTERASE, URINE AUTO NEGATIVE (NEGATIVE); MUCUS, URINE SMALL (NEGATIVE); NITRITE, URINE AUTO NEGATIVE (NEGATIVE); PROTEIN, URINE AUTO NEGATIVE (NEGATIVE); RBC, URINE AUTO 0 /HPF (0-3); SPECIFIC GRAVITY URINE AUTO 1.004 (1.002-1.035); SQUAMOUS EPITHELIAL CELL UR AU 0 /HPF (0-6); UROBILINOGEN, URINE AUTO 0.2 mg/dL (0.0-2.0); WBC, URINE AUTO 0 /HPF (0-3)
== END ==
LOC: M SMT 13:13
PROVIDERS: ATTEND Specialist
DX: N32.89 Other specified disorders of bladder (principal)

== ENCOUNTER → 2023-08-14 | Outpatient (CLI) | payer MEDICARE, OTHER ==
[2023-08-14 21:04] LABS: HEMATOCRIT 48.6 % (42.0-52.0); HEMOGLOBIN 15.7 g/dl (13.5-17.5); MEAN CORPUSCULAR HEMOGLOBIN 32.4 pg (27.0-33.0); MEAN CORPUSCULAR HGB CONC 32.3 g/dl (32.0-36.5); MEAN CORPUSCULAR VOLUME 100.4 fl (80.0-96.0); PLATELET COUNT, AUTOMATED 247 10^3/uL (150-450); RED BLOOD COUNT 4.84 10^6/uL (4.30-6.10); WHITE BLOOD COUNT 7.2 10^3/uL (4.0-10.0)
[2023-08-14 21:10] LABS: ERYTHROCYTE SEDIMENTATION RATE 57 mm/hr (0-20)
== END ==
LOC: M WUC 15:24
PROVIDERS: ATTEND Internal Medicine
DX: M25.50 Pain in unspecified joint (principal)

== ENCOUNTER → 2023-09-11 | Outpatient (CLI) | payer MEDICARE, OTHER ==
[2023-09-11 17:58] LABS: HEMATOCRIT 49.4 % (42.0-52.0); HEMOGLOBIN 15.8 g/dl (13.5-17.5); MEAN CORPUSCULAR HEMOGLOBIN 31.8 pg (27.0-33.0); MEAN CORPUSCULAR VOLUME 99.4 fl (80.0-96.0); PLATELET COUNT, AUTOMATED 228 10^3/uL (150-450); RED BLOOD COUNT 4.97 10^6/uL (4.30-6.10)
[2023-09-11 18:25] LABS: RHEUMATOID FACTOR QUANT < 3.5 IU/ML (<14)
[2023-09-11 18:28] LABS: ALBUMIN 3.5 G/DL (3.2-5.2); ALKALINE PHOSPHATASE 67 U/L (46-116); ALT/SGPT 26 U/L (7.0-40); AST/SGOT 17 U/L (<34); BILIRUBIN,TOTAL 0.4 MG/DL (0.3-1.2); BLOOD UREA NITROGEN 12 MG/DL (9-23); CALCIUM LEVEL 9.4 MG/DL (8.3-10.6); CARBON DIOXIDE LEVEL 32 MMOL/L (20-31); CHLORIDE LEVEL 105 MMOL/L (98-107); GLOMERULAR FILTRATION RATE > 60.0 (>49); GLUCOSE, FASTING 135 MG/DL (74-106); POTASSIUM SERUM 4.1 MMOL/L (3.5-5.1); SODIUM LEVEL 144 MMOL/L (136-145); TOTAL PROTEIN 6.6 G/DL (5.7-8.2)
[2023-09-11 19:32] LABS: ERYTHROCYTE SEDIMENTATION RATE 53 mm/hr (0-20)
[2023-09-12 06:43] LABS: WHITE BLOOD COUNT 10.1 10^3/uL (4.0-10.0)
[2023-09-13 21:07] LABS: ANTINUCLEAR ANTIBODIES DIRECT Negative (Negative); CYCLIC CITRULLINATED PEPTIDE 3 units (0-19)
== END ==
LOC: M WUC 13:56
PROVIDERS: ATTEND Internal Medicine
DX: M25.50 Pain in unspecified joint (principal)

== ENCOUNTER → 2023-11-04 | Outpatient (CLI) | payer MEDICARE, OTHER ==
[2023-11-04 16:32] LABS: ALBUMIN 4.3 G/DL (3.2-5.2); ALKALINE PHOSPHATASE 54 U/L (46-116); ALT/SGPT 37 U/L (7.0-40); AST/SGOT 22 U/L (<34); BILIRUBIN,TOTAL 0.6 MG/DL (0.3-1.2); BLOOD UREA NITROGEN 17 MG/DL (9-23); CALCIUM LEVEL 10.3 MG/DL (8.3-10.6); CARBON DIOXIDE LEVEL 34 MMOL/L (20-31); CHLORIDE LEVEL 105 MMOL/L (98-107); CHOLESTEROL LEVEL 189 MG/DL (<200); CHOLESTEROL RISK RATIO 1.86 (<5); CREATININE FOR GFR 0.84 MG/DL (0.70-1.30); GLOMERULAR FILTRATION RATE > 60.0 (>49); GLUCOSE, FASTING 121 MG/DL (74-106); HDL CHOLESTEROL 101.3 MG/DL (>40); LDL CHOLESTEROL 72.9 MG/DL (<100); NON-HDL-C 87.7 MG/DL; POTASSIUM SERUM 4.2 MMOL/L (3.5-5.1); SODIUM LEVEL 143 MMOL/L (136-145); TRIGLYCERIDES LEVEL 74 MG/DL (<150)
[2023-11-04 16:37] LABS: BASO # 0.1 10^3/uL (0.0-0.2); BASO % 0.5 % (0.0-1.0); EOS # 0.1 10^3/uL (0.0-0.5); EOS % 0.5 % (0.0-3.0); HEMATOCRIT 49.8 % (42.0-52.0); HEMOGLOBIN 15.9 g/dl (13.5-17.5); LYMPH # 0.8 10^3/uL (1.5-5.0); LYMPH % 6.3 % (24.0-44.0); MEAN CORPUSCULAR HEMOGLOBIN 31.6 pg (27.0-33.0); MEAN CORPUSCULAR HGB CONC 31.9 g/dl (32.0-36.5); MONO # 0.4 10^3/uL (0.0-0.8); MONO % 3.1 % (2.0-8.0); NEUTROPHILS # 11.7 10^3/uL (1.5-8.5); NEUTROPHILS % 88.5 % (36.0-66.0); PLATELET COUNT, AUTOMATED 237 10^3/uL (150-450); RED BLOOD COUNT 5.03 10^6/uL (4.30-6.10); WHITE BLOOD COUNT 13.2 10^3/uL (4.0-10.0)
[2023-11-04 16:49] LABS: ERYTHROCYTE SEDIMENTATION RATE 19 mm/hr (0-20)
== END ==
LOC: M WUC 10:46
PROVIDERS: ATTEND Internal Medicine
DX: E78.5 Hyperlipidemia, unspecified (principal); E03.9 Hypothyroidism, unspecified; M35.3 Polymyalgia rheumatica

== ENCOUNTER 2023-12-03 08:20 | Emergency (ER) | payer MEDICARE ==
[~2023-12-03] VITALS: Ht 180.3 cm; Wt 87.8 kg
[2023-12-03] MEDS: methylPREDNISolone 125MG 2ML VIAL IV ONE (08:35)
[2023-12-03] MEDS ORDERED: IPRATROPIUM 0.5MG/ALBUTEROL 2.5MG INH SOL UD 3ML (DUONEB) NEB PRN (08:35)
[2023-12-03 09:10] LABS: BASO # 0.1 10^3/uL (0.0-0.2); BASO % 0.6 % (0.0-1.0); EOS % 0.4 % (0.0-3.0); HEMATOCRIT 46.3 % (42.0-52.0); HEMOGLOBIN 14.9 g/dl (13.5-17.5); LYMPH # 0.5 10^3/uL (1.5-5.0); LYMPH % 4.6 % (24.0-44.0); MEAN CORPUSCULAR HEMOGLOBIN 31.4 pg (27.0-33.0); MEAN CORPUSCULAR HGB CONC 32.2 g/dl (32.0-36.5); MEAN CORPUSCULAR VOLUME 97.5 fl (80.0-96.0); MONO # 0.8 10^3/uL (0.0-0.8); MONO % 7.5 % (2.0-8.0); NEUTROPHILS # 8.6 10^3/uL (1.5-8.5); NEUTROPHILS % 85.8 % (36.0-66.0); PLATELET COUNT, AUTOMATED 166 10^3/uL (150-450); RED BLOOD COUNT 4.75 10^6/uL (4.30-6.10)
[2023-12-03 09:15] LABS: VENOUS O2 SATURATION 84.6 % (60.0-80.0); VENOUS PARTIAL PRESSURE CO2 48.7 mmHg (38.0-50.0); VENOUS PARTIAL PRESSURE O2 45.6 mmHg (30.0-50.0); VENOUS PH 7.392 UNITS (7.330-7.430); VENOUS STANDARD HCO3 26.8 MMOL/L; VENOUS TOTAL CO2 30.4 MMOL/L (24.0-28.0)
[2023-12-03 09:33] LABS: ALBUMIN 3.6 G/DL (3.2-5.2); ALKALINE PHOSPHATASE 51 U/L (46-116); ALT/SGPT 32 U/L (7.0-40); AST/SGOT 29 U/L (<34); BILIRUBIN,DIRECT 0.2 MG/DL (<0.4); BILIRUBIN,TOTAL 0.6 MG/DL (0.3-1.2); BLOOD UREA NITROGEN 13 MG/DL (9-23); CALCIUM LEVEL 8.9 MG/DL (8.3-10.6); CARBON DIOXIDE LEVEL 30 MMOL/L (20-31); CHLORIDE LEVEL 105 MMOL/L (98-107); CREATININE FOR GFR 0.83 MG/DL (0.70-1.30); GLOMERULAR FILTRATION RATE > 60.0 (>49); GLUCOSE, FASTING 150 MG/DL (74-106); POTASSIUM SERUM 3.9 MMOL/L (3.5-5.1); SODIUM LEVEL 140 MMOL/L (136-145); TOTAL PROTEIN 6.4 G/DL (5.7-8.2)
[2023-12-03 09:35] LABS: THYROID STIMULATING HORMONE 1.831 uIU/ML (0.55-4.78)
[2023-12-03] MEDS ORDERED: ISOVUE-370 76% 100ML VIAL As Ordered ONE (10:12)
[2023-12-03] MEDS ORDERED: POTA-298 (11:09)
[2023-12-03] MEDS ORDERED: CLOP75TA2 (11:09)
[2023-12-03] MEDS ORDERED: ROSU10TA6 (11:09)
[2023-12-03] MEDS ORDERED: PRED10TA2 PO (11:09)
[2023-12-03 11:34] VITALS: O2SAT 95
[2023-12-03] MEDS ORDERED: OSEL75CA PO (11:58)
[2023-12-03] MEDS ORDERED: PRED20TA PO (11:58)
[2023-12-03 12:15] VITALS: BP 132/60; TEMP 97.8; O2SAT 95
== END 2023-12-03 12:32 | disposition home or self-care (01) ==
LOC: M ED 08:20 → EDBD 08:20 → M ED 12:32
DX: J44.1 Chronic obstructive pulmonary disease with (acute) exacerbation (principal); J09.X9 Influenza due to identified novel influenza A virus with other manifestations; I25.42 Coronary artery dissection; I10 Essential (primary) hypertension; E78.5 Hyperlipidemia, unspecified; E03.9 Hypothyroidism, unspecified; F17.210 Nicotine dependence, cigarettes, uncomplicated; Z79.899 Other long term (current) drug therapy; Z79.1 Long term (current) use of non-steroidal anti-inflammatories (NSAID); Z79.810 Long term (current) use of selective estrogen receptor modulators (SERMs); Z79.52 Long term (current) use of systemic steroids
CPT/HCPCS: 71045; 71275; 80048; 80076; 82803; 83605; 84443; 85025; 87040; 87486; 87581; 87633; 87798; 93005; 93041; 94760; 96374; 99285; J2930; Q9967

== ENCOUNTER → 2024-01-07 | Outpatient (REF) | payer MEDICARE ==
[~2024-01-07] MED LIST changes: +CLOP75TA2; +OSEL75CA PO; +POTA-298; +PRED10TA2 PO; +PRED20TA PO; +ROSU10TA6
[2024-01-07 12:42] LABS: ALBUMIN 3.9 G/DL (3.2-5.2); ALKALINE PHOSPHATASE 50 U/L (46-116); ALT/SGPT 34 U/L (7.0-40); AST/SGOT 20 U/L (<34); BILIRUBIN,TOTAL 0.5 MG/DL (0.3-1.2); BLOOD UREA NITROGEN 14 MG/DL (9-23); CALCIUM LEVEL 9.2 MG/DL (8.3-10.6); CARBON DIOXIDE LEVEL 28 MMOL/L (20-31); CHLORIDE LEVEL 109 MMOL/L (98-107); CHOLESTEROL LEVEL 162 MG/DL (<200); CHOLESTEROL RISK RATIO 2.04 (<5); CREATININE FOR GFR 0.83 MG/DL (0.70-1.30); GLOMERULAR FILTRATION RATE > 60.0 (>49); GLUCOSE, FASTING 120 MG/DL (74-106); HDL CHOLESTEROL 79.2 MG/DL (>40); LDL CHOLESTEROL 71.6 MG/DL (<100); NON-HDL-C 82.8 MG/DL; POTASSIUM SERUM 4.2 MMOL/L (3.5-5.1); SODIUM LEVEL 142 MMOL/L (136-145); TOTAL PROTEIN 6.7 G/DL (5.7-8.2); TRIGLYCERIDES LEVEL 56 MG/DL (<150)
== END ==
LOC: M LAB REF 09:33
PROVIDERS: ATTEND Internal Medicine
DX: I25.10 Atherosclerotic heart disease of native coronary artery without angina pectoris (principal); E78.5 Hyperlipidemia, unspecified; E03.9 Hypothyroidism, unspecified; M35.3 Polymyalgia rheumatica

== ENCOUNTER → 2024-04-17 | Outpatient (CLI) | payer MEDICARE, OTHER, MEDICAID ==
[~2024-04-17] MED LIST changes: -ROSU10TA6; +ROSU10TA61
[2024-04-17 17:47] LABS: BASO # 0.1 10^3/uL (0.0-0.2); BASO % 0.8 % (0.0-1.0); EOS # 0.2 10^3/uL (0.0-0.5); EOS % 1.9 % (0.0-3.0); HEMATOCRIT 50.6 % (42.0-52.0); HEMOGLOBIN 16.6 g/dl (13.5-17.5); LYMPH # 1.1 10^3/uL (1.5-5.0); LYMPH % 8.7 % (24.0-44.0); MEAN CORPUSCULAR HEMOGLOBIN 31.6 pg (27.0-33.0); MEAN CORPUSCULAR HGB CONC 32.8 g/dl (32.0-36.5); MEAN CORPUSCULAR VOLUME 96.2 fl (80.0-96.0); MONO # 0.8 10^3/uL (0.0-0.8); MONO % 6.1 % (2.0-8.0); NEUTROPHILS # 10.1 10^3/uL (1.5-8.5); NEUTROPHILS % 81.8 % (36.0-66.0); PLATELET COUNT, AUTOMATED 232 10^3/uL (150-450); RED BLOOD COUNT 5.26 10^6/uL (4.30-6.10); WHITE BLOOD COUNT 12.4 10^3/uL (4.0-10.0)
[2024-04-17 18:12] LABS: ALBUMIN 3.9 G/DL (3.2-5.2); ALKALINE PHOSPHATASE 75 U/L (46-116); ALT/SGPT 36 U/L (7.0-40); AST/SGOT 23 U/L (<34); BILIRUBIN,TOTAL 0.7 MG/DL (0.3-1.2); BLOOD UREA NITROGEN 12 MG/DL (9-23); CARBON DIOXIDE LEVEL 31 MMOL/L (20-31); CHLORIDE LEVEL 104 MMOL/L (98-107); CHOLESTEROL LEVEL 144 MG/DL (<200); CHOLESTEROL RISK RATIO 2.69 (<5); CREATININE FOR GFR 0.85 MG/DL (0.70-1.30); GLOMERULAR FILTRATION RATE > 60.0 (>49); GLUCOSE, FASTING 101 MG/DL (74-106); HDL CHOLESTEROL 53.5 MG/DL (>40); LDL CHOLESTEROL 66.9 MG/DL (<100); NON-HDL-C 90.5 MG/DL; POTASSIUM SERUM 4.3 MMOL/L (3.5-5.1); SODIUM LEVEL 139 MMOL/L (136-145); TOTAL PROTEIN 6.7 G/DL (5.7-8.2); TRIGLYCERIDES LEVEL 118 MG/DL (<150)
[2024-04-17 18:14] LABS: THYROID STIMULATING HORMONE 1.847 uIU/ML (0.55-4.78)
[2024-04-17 18:17] LABS: ERYTHROCYTE SEDIMENTATION RATE 33 mm/hr (0-20)
== END ==
LOC: M WUC 10:41
PROVIDERS: ATTEND Internal Medicine
DX: I25.10 Atherosclerotic heart disease of native coronary artery without angina pectoris (principal); I10 Essential (primary) hypertension; E03.9 Hypothyroidism, unspecified; M35.3 Polymyalgia rheumatica

== ENCOUNTER → 2024-07-21 | Outpatient (CLI) | payer MEDICARE, MEDICAID ==
[2024-07-21 12:37] LABS: BASO # 0.1 10^3/uL (0.0-0.2); BASO % 1.1 % (0.0-1.0); EOS # 0.5 10^3/uL (0.0-0.5); EOS % 4.5 % (0.0-3.0); HEMATOCRIT 51.1 % (42.0-52.0); HEMOGLOBIN 16.8 g/dl (13.5-17.5); LYMPH # 2.2 10^3/uL (1.5-5.0); LYMPH % 18.9 % (24.0-44.0); MEAN CORPUSCULAR HEMOGLOBIN 31.5 pg (27.0-33.0); MEAN CORPUSCULAR HGB CONC 32.9 g/dl (32.0-36.5); MEAN CORPUSCULAR VOLUME 95.7 fl (80.0-96.0); MONO # 1.2 10^3/uL (0.0-0.8); MONO % 10.1 % (2.0-8.0); NEUTROPHILS # 7.3 10^3/uL (1.5-8.5); NEUTROPHILS % 64.4 % (36.0-66.0); PLATELET COUNT, AUTOMATED 245 10^3/uL (150-450); RED BLOOD COUNT 5.34 10^6/uL (4.30-6.10); WHITE BLOOD COUNT 11.4 10^3/uL (4.0-10.0)
[2024-07-21 13:07] LABS: ALKALINE PHOSPHATASE 72 U/L (46-116); ALT/SGPT 27 U/L (7.0-40); AST/SGOT 20 U/L (<34); BILIRUBIN,TOTAL 0.6 MG/DL (0.3-1.2); BLOOD UREA NITROGEN 8 MG/DL (9-23); CALCIUM LEVEL 9.7 MG/DL (8.3-10.6); CARBON DIOXIDE LEVEL 32 MMOL/L (20-31); CHLORIDE LEVEL 106 MMOL/L (98-107); CREATININE FOR GFR 0.81 MG/DL (0.70-1.30); GLOMERULAR FILTRATION RATE > 60.0 (>49); GLUCOSE, FASTING 100 MG/DL (74-106); POTASSIUM SERUM 4.3 MMOL/L (3.5-5.1); SODIUM LEVEL 142 MMOL/L (136-145); TOTAL PROTEIN 7.2 G/DL (5.7-8.2)
[2024-07-21 13:08] LABS: THYROID STIMULATING HORMONE 3.408 uIU/ML (0.55-4.78)
== END ==
LOC: M WUC 09:22
PROVIDERS: ATTEND Internal Medicine
DX: E03.9 Hypothyroidism, unspecified (principal)

== ENCOUNTER → 2024-11-09 | Outpatient (CLI) | payer MEDICARE, MEDICAID ==
[2024-11-09 11:09] LABS: BASO # 0.2 10^3/uL (0.0-0.2); BASO % 1.1 % (0.0-1.0); EOS # 0.6 10^3/uL (0.0-0.5); EOS % 4.1 % (0.0-3.0); HEMATOCRIT 49.8 % (42.0-52.0); HEMOGLOBIN 16.7 g/dl (13.5-17.5); MEAN CORPUSCULAR HEMOGLOBIN 31.9 pg (27.0-33.0); MEAN CORPUSCULAR HGB CONC 33.5 g/dl (32.0-36.5); MONO # 1.3 10^3/uL (0.0-0.8); NEUTROPHILS # 9.9 10^3/uL (1.5-8.5); NEUTROPHILS % 70.9 % (36.0-66.0); PLATELET COUNT, AUTOMATED 259 10^3/uL (150-450); RED BLOOD COUNT 5.24 10^6/uL (4.30-6.10)
[2024-11-09 11:31] LABS: URIC ACID 5.8 MG/DL (3.7-9.2)
[2024-11-09 11:34] LABS: ALBUMIN 3.9 G/DL (3.2-5.2); ALKALINE PHOSPHATASE 69 U/L (40-129); ALT/SGPT 27 U/L (7.0-40); AST/SGOT 21 U/L (<34); BILIRUBIN,TOTAL 0.5 MG/DL (0.3-1.2); BLOOD UREA NITROGEN 10 MG/DL (9-23); CALCIUM LEVEL 9.9 MG/DL (8.3-10.6); CARBON DIOXIDE LEVEL 33 MMOL/L (20-31); CHLORIDE LEVEL 102 MMOL/L (98-107); CHOLESTEROL LEVEL 193 MG/DL (<200); CHOLESTEROL RISK RATIO 3.69 (<5); CREATININE FOR GFR 0.88 MG/DL (0.70-1.30); GLOMERULAR FILTRATION RATE > 60.0 (>49); GLUCOSE, FASTING 99 MG/DL (74-106); HDL CHOLESTEROL 52.3 MG/DL (>40); LDL CHOLESTEROL 111.3 MG/DL (<100); NON-HDL-C 140.7 MG/DL; POTASSIUM SERUM 4.3 MMOL/L (3.5-5.1); SODIUM LEVEL 140 MMOL/L (136-145); THYROID STIMULATING HORMONE 3.452 uIU/ML (0.55-4.78); TOTAL PROTEIN 7.5 G/DL (5.7-8.2); TRIGLYCERIDES LEVEL 147 MG/DL (<150)
== END ==
LOC: M WUC 08:52
PROVIDERS: ATTEND Internal Medicine
DX: E03.9 Hypothyroidism, unspecified (principal); R73.01 Impaired fasting glucose; M10.9 Gout, unspecified; E78.5 Hyperlipidemia, unspecified

== ENCOUNTER → 2024-12-21 | Outpatient (CLI) | payer MEDICAID, MEDICARE | LOC: M RAD 07:35 | PROVIDERS: ATTEND Internal Medicine Pulmonary Disease | DX: F17.218 Nicotine dependence, cigarettes, with other nicotine-induced disorders (principal) ==

== ENCOUNTER → 2025-02-08 | Outpatient (CLI) | payer MEDICARE ==
[2025-02-08 12:58] LABS: BASO # 0.1 10^3/uL (0.0-0.2); EOS # 0.6 10^3/uL (0.0-0.5); EOS % 4.4 % (0.0-3.0); HEMATOCRIT 50.7 % (42.0-52.0); HEMOGLOBIN 16.4 g/dl (13.5-17.5); LYMPH # 2.1 10^3/uL (1.5-5.0); LYMPH % 15.3 % (24.0-44.0); MEAN CORPUSCULAR HEMOGLOBIN 31.2 pg (27.0-33.0); MEAN CORPUSCULAR HGB CONC 32.3 g/dl (32.0-36.5); MEAN CORPUSCULAR VOLUME 96.6 fl (80.0-96.0); MONO # 1.3 10^3/uL (0.0-0.8); MONO % 9.1 % (2.0-8.0); NEUTROPHILS # 9.5 10^3/uL (1.5-8.5); NEUTROPHILS % 69.3 % (36.0-66.0); PLATELET COUNT, AUTOMATED 248 10^3/uL (150-450); RED BLOOD COUNT 5.25 10^6/uL (4.30-6.10); WHITE BLOOD COUNT 13.7 10^3/uL (4.0-10.0)
[2025-02-08 13:26] LABS: THYROID STIMULATING HORMONE 3.276 uIU/ML (0.55-4.78)
[2025-02-08 13:28] LABS: ALKALINE PHOSPHATASE 66 U/L (40-129); ALT/SGPT 28 U/L (7.0-40); AST/SGOT 20 U/L (<34); BILIRUBIN,TOTAL 0.5 MG/DL (0.3-1.2); BLOOD UREA NITROGEN 9 MG/DL (9-23); C REACTIVE PROTEIN QUANTITATIV 0.87 MG/DL (<1.0); CALCIUM LEVEL 9.7 MG/DL (8.3-10.6); CARBON DIOXIDE LEVEL 31 MMOL/L (20-31); CHLORIDE LEVEL 105 MMOL/L (98-107); CHOLESTEROL LEVEL 157 MG/DL (<200); CHOLESTEROL RISK RATIO 2.83 (<5); GLOMERULAR FILTRATION RATE > 90.0 (>49); GLUCOSE, FASTING 98 MG/DL (74-106); HDL CHOLESTEROL 55.3 MG/DL (>40); LDL CHOLESTEROL 79.1 MG/DL (<100); NON-HDL-C 101.7 MG/DL; POTASSIUM SERUM 4.1 MMOL/L (3.5-5.1); SODIUM LEVEL 144 MMOL/L (136-145); TRIGLYCERIDES LEVEL 113 MG/DL (<150)
[2025-02-08 13:31] LABS: URIC ACID 5.2 MG/DL (3.7-9.2)
[2025-02-08 13:34] LABS: HEMOGLOBIN A1c 5.8 % (4.0-6.0)
== END ==
LOC: M WUC 08:46
PROVIDERS: ATTEND Internal Medicine
DX: E78.5 Hyperlipidemia, unspecified (principal); R73.01 Impaired fasting glucose; M35.3 Polymyalgia rheumatica; M10.9 Gout, unspecified

== ENCOUNTER → 2025-08-10 | Outpatient (CLI) | payer MEDICARE ==
[~2025-08-10] MED LIST changes: -IBUP-1022 PO; +IBUP600T42 PO
[2025-08-10 12:48] LABS: BASO # 0.1 10^3/uL (0.0-0.2); BASO % 0.9 % (0.0-1.0); EOS # 0.5 10^3/uL (0.0-0.5); EOS % 4.1 % (0.0-3.0); LYMPH # 2.0 10^3/uL (1.5-5.0); LYMPH % 15.7 % (24.0-44.0); MONO # 1.2 10^3/uL (0.0-0.8); MONO % 9.3 % (2.0-8.0); NEUTROPHILS # 8.9 10^3/uL (1.5-8.5); NEUTROPHILS % 69.3 % (36.0-66.0); PLATELET COUNT, AUTOMATED 260 10^3/uL (150-450)
[2025-08-10 12:53] LABS: ALT/SGPT 24 U/L (7.0-40); AST/SGOT 22 U/L (<34); CALCIUM LEVEL 9.8 MG/DL (8.3-10.6); CARBON DIOXIDE LEVEL 31 MMOL/L (20-31); CHLORIDE LEVEL 104 MMOL/L (98-107); CHOLESTEROL LEVEL 169 MG/DL (<200); CHOLESTEROL RISK RATIO 3.37 (<5); CREATININE FOR GFR 0.87 MG/DL (0.70-1.30); GLOMERULAR FILTRATION RATE > 90.0 (>49); LDL CHOLESTEROL 96.1 MG/DL (<100); NON-HDL-C 118.9 MG/DL; POTASSIUM SERUM 4.4 MMOL/L (3.5-5.1); SODIUM LEVEL 144 MMOL/L (136-145); TRIGLYCERIDES LEVEL 114 MG/DL (<150)
[2025-08-10 13:05] LABS: ERYTHROCYTE SEDIMENTATION RATE 31 mm/hr (0-20)
== END ==
LOC: M WUC 09:13
PROVIDERS: ATTEND Internal Medicine
DX: E78.5 Hyperlipidemia, unspecified (principal); M10.9 Gout, unspecified; M35.3 Polymyalgia rheumatica; E03.9 Hypothyroidism, unspecified